=== PATIENT | female | born 1955 | race Caucasian/White ===

== ENCOUNTER 2021-09-06 11:12 | Outpatient (REF) | payer BC, SELFPAY ==
[2021-09-06 16:21] LABS: ALT 22 U/L (14-59); AST 29 U/L (15-37); Albumin 3.5 g/dL (3.4-5.0); Alkaline Phosphatase 88 U/L (46-116); Anion Gap 12.1 mmol/L (3-11); BUN 15 mg/dL (7-18); Bilirubin, Total 0.5 mg/dL (0.2-1.0); CO2 24.9 mmol/L (21.0-32.0); CREATININE 0.9 mg/dL (0.55-1.02); Calcium 8.6 mg/dL (8.5-10.1); Calculated LDL 103 mg/dL (<100); Chloride 102 mmol/L (98-107); Cholesterol 200 mg/dL (<200); Glucose 128 mg/dL (74-106); HDL Cholesterol 79 mg/dL (40-60); Potassium 4.7 mmol/L (3.5-5.1); Sodium 139 mmol/L (136-145); Total Protein 7.1 g/dL (6.4-8.2); Triglyceride 90 mg/dL (<150)
== END 2021-09-06 11:13 | disposition home or self-care (01) ==
LOC: NCHCN 11:12
PROVIDERS: Visit Provider Family Medicine
DX: I10 Essential (primary) hypertension (principal); E66.9 Obesity, unspecified; J45.20 Mild intermittent asthma, uncomplicated
CPT/HCPCS: 80053; 80061

== ENCOUNTER 2021-11-05 00:58 | Outpatient (CLI) | payer BC, SELFPAY ==
--- NOTE | 2021-11-05 10:05 | DI.RAD_ITS ---
Exam(s) XR CHEST 2V PA LATERAL EXAM: XR CHEST 2V PA LATERAL CLINICAL HISTORY: MILD PERSISTENT ALLERGIC ASTHMA, CONTROLLED, J45.30 TECHNIQUE: 2D digital imaging was performed of the chest. Two images were obtained. PA and lateral views were obtained. COMPARISON: No exams were available for comparison FINDINGS: MEDIASTINUM: Normal. HEART: Normal. PULMONARY VASCULATURE: Normal. LUNGS: Clear. PLEURAL SPACE: No pleural effusion or pneumothorax. BONE:Within normal limits for the patient's age. OTHER FINDINGS:Normal. IMPRESSION: No acute pulmonary findings. DATA REPOSITORY: RADIATION DOSE DELIVERED:
== END 2021-11-05 01:18 ==
LOC: DI 00:58
PROVIDERS: Visit Provider Family Medicine
DX: J45.30 Mild persistent asthma, uncomplicated (principal)
CPT/HCPCS: 71046

== ENCOUNTER 2021-11-12 04:42 | Outpatient (CLI) | payer BC, SELFPAY ==
[2021-11-12] MEDS: Inhaler, Assist Device 1 EACH MC (11:00)
[2021-11-12] MEDS: Albuterol HFA 18 GM 200 PUFF INH IH (11:00)
== END 2021-11-12 04:43 | disposition home or self-care (01) ==
LOC: RT 04:42
PROVIDERS: Visit Provider Family Medicine
DX: J45.30 Mild persistent asthma, uncomplicated (principal); R06.09 Other forms of dyspnea; R05.9 Cough, unspecified; K21.9 Gastro-esophageal reflux disease without esophagitis; E66.9 Obesity, unspecified; R94.2 Abnormal results of pulmonary function studies
CPT/HCPCS: 94060; 94726; 94729

== ENCOUNTER → 2021-11-23 01:21 | Outpatient (CLI) | payer BC, SELFPAY ==
--- NOTE | 2021-11-23 10:19 | DI.MAMMO_ITS ---
Exam(s) MAMMO SCREENING EXAM: MAMMO SCREENING CLINICAL HISTORY: SCREENING, Z12.39 TECHNIQUE: Bilateral full field digital CC and MLO mammographic images were obtained with 3D tomosyn thesis and utilizing computer aided detection (CAD). COMPARISON: Available for comparison. FINDINGS: Masses/Architectural Distortion: Scattered stable asymmetric densities are seen in both breasts. No suspicious masses or areas of architectural distortion are present. There is an ovoid opacity in the upper right breast on the MLO view. Microcalcifications: No suspicious pleomorphic-type are seen. Skin Thickening/Nipple Retraction: None. IMPRESSION: 1. Opacity in the upper right breast on the MLO view. 2. This area should be further evaluated with spot compression view. Ultrasound may be indicated at that time. BI-RADS Category 0 - Assessment Incomplete: Need additional imaging evaluation Breast Density - Category B - Scattered areas of fibroglandular density Breast density category C or D implies that the patient has dense breast tissue. Dense breast tissue is very common and is not abnormal but dense breast tissue can make it harder to find cancer on a ma mmogram. Also, dense breast tissue may increase their breast cancer risk. This information about the result of the mammogram report was provided to the patient to raise their awareness. Use this report when you speak with the patient about their risks for breast cancer, which includes their family hist ory. At that time, you may recommend for more screening tests (Ultrasound or MRI) as they might be us eful based on their risk. A negative radiographic report should not delay biopsy if a dominant or clinically suspicious mass is present. Up to ten percent of cancers are not identified on mammography. A negative report may reinforce clinical impression. Adenosis and dense breasts may obscure an underlying neoplasm. False positive reports average 6 to 10%. Patient will receive a letter notifying them of these results.
== END ==
PROVIDERS: Visit Provider Family Medicine
DX: Z12.31 Encounter for screening mammogram for malignant neoplasm of breast (principal)
CPT/HCPCS: 77063; 77067

== ENCOUNTER → 2021-12-17 00:21 | Outpatient (CLI) | payer BC, SELFPAY ==
--- NOTE | 2021-12-17 | DI.US_ITS ---
Exam(s) MG MAMMO SCREEN CALL BACK UNI US BREAST RT LIMITED EXAM: MG MAMMO SCREEN CALL BACK UNI and U/S breast RT limited CLINICAL HISTORY: F/U MAMMO, OPACITY UPPER RT BREAST MLO VIEW. TECHNIQUE: Craniocaudal and mediolateral oblique Full Field Digital Mammography views of the right b reast with Computer Aided Diagnosis followed by Tomosynthesis and right breast ultrasound. COMPARISON: Comparison is made with prior examinations. FINDINGS: Mammography/Tomosynthesis: Masses/Architectural Distortion: The area of concern in the upper right breast is less prominent on t he additional views. Microcalcifictions: No suspicious pleomorphic-type are seen. Skin Thickening/Nipple Retraction: None. Limited right breast US: Echotexture: Normal appearance of the glandular tissue. Shadowing: No suspicious foci. Cyst: None. Solid lesions: None seen. Ductal dilation: None. IMPRESSION: 1. No evidence of malignancy is noted. 2. A six-month follow-up right mammogram is recommended for re-evaluation. 3. The findings were discussed with the patient on the date of the examination. BI-RADS Category 3 - 6 month - Probably Benign Finding: Recommend follow-up imaging in 6 months Breast Density - Category B - Scattered areas of fibroglandular density Breast density Category C or D implies that the patient has dense breast tissue. Dense breast tissue can make it harder to find cancer on a mammogram. Dense breast tissue is also associated with an incr eased risk of breast cancer. This information about the result of the mammogram report was provided to the patient to raise their awareness. Use this report when you speak with the patient about their risks for breast cancer, which includes their family history. At that time, you may recommend additional screening tests (Ultrasoun d or MRI) as these tests may add significant information. A negative radiographic report should not delay biopsy if a dominant or clinically suspicious mass is present. Up to ten percent of cancers are not identified on mammography. A negative report may reinforce clinical impression. Adenosis and dense breasts may obscure an underlying neoplasm. False positive reports average 6 to 10%. Patient will receive a letter notifying them of these results.
== END ==
PROVIDERS: PCP Family Medicine; Visit Provider Family Medicine
DX: Z12.31 Encounter for screening mammogram for malignant neoplasm of breast (principal); R92.8 Other abnormal and inconclusive findings on diagnostic imaging of breast; N64.59 Other signs and symptoms in breast
CPT/HCPCS: 76642; 77063; 77067

== ENCOUNTER 2022-05-10 19:14 | Outpatient (REF) | payer BC, SELFPAY ==
[2022-05-10 14:48] LABS: HCT 22.2 % (36.0-46.0); MCHC 28.4 % (32.0-36.0); MCV 77 fL (80-95); Platelet Count 197 10^3/uL (130-400); RBC 2.87 10^6/uL (3.93-5.22); RDW 19.3 % (11.7-14.6); RDW-SD 53.2 fL; WBC 7.73 10^3/uL (4.4-10.8)
[2022-05-10 14:56] LABS: HGB 6.3 g/dL (11.2-15.7)
[2022-05-10 15:06] LABS: ALT 24 U/L (14-59); AST 37 U/L (15-37); Albumin 3.2 g/dL (3.4-5.0); Alkaline Phosphatase 101 U/L (46-116); Anion Gap 8.5 mmol/L (3-11); BUN 8 mg/dL (7-18); CO2 27.5 mmol/L (21.0-32.0); CREATININE 0.9 mg/dL (0.55-1.02); Calcium 8.7 mg/dL (8.5-10.1); Chloride 100 mmol/L (98-107); Estimated GFR 70.95 (mL/min/1.73m2); Glucose 117 mg/dL (74-106); Potassium 4.5 mmol/L (3.5-5.1); Sodium 136 mmol/L (136-145); TSH (W/Ref FT4) 1.24 uIU/mL (0.36-3.74); Total Protein 7.1 g/dL (6.4-8.2)
[2022-05-11 09:57] LABS: Iron 20 ug/dL (50-170); Total Iron Binding Capacity 385 ug/dL (250-450)
[2022-05-11 10:21] LABS: Ferritin 12 ng/mL (8-252)
== END 2022-05-10 19:15 | disposition home or self-care (01) ==
LOC: NCHCN 19:14
PROVIDERS: Nurse Practitioner Family; PCP Family Medicine; Visit Provider Family Medicine
DX: I10 Essential (primary) hypertension (principal); E66.9 Obesity, unspecified; R00.0 Tachycardia, unspecified
CPT/HCPCS: 80053; 85027; 82728; 83540; 83550; 84443

== ENCOUNTER 2022-05-11 10:07 | Inpatient (IN) | payer BC, SELFPAY ==
[2022-05-11] VITALS (42 sets, daily range): BP systolic 102–159; BP diastolic 48–94; PULSE 90–169; RESP 14–30; TEMP 36.6–37.4; O2SAT 94–100
--- NOTE | 2022-05-11 | DI.RAD_ITS ---
Exam(s) XR PORTABLE CHEST AP EXAM: XR PORTABLE CHEST AP CLINICAL HISTORY: ?CHF TECHNIQUE: 2D digital imaging was performed of the chest. One image was obtained. An AP view was ob tained. COMPARISON: CR XR CHEST 2V PA LATERAL from 11/05/2021 FINDINGS: MEDIASTINUM: Normal. HEART: Normal. PULMONARY VASCULATURE: Normal. LUNGS: Clear. PLEURAL SPACE: No pleural effusion or pneumothorax. BONE:Within normal limits for the patient's age. OTHER FINDINGS:Normal. IMPRESSION: No acute pulmonary findings. DATA REPOSITORY: RADIATION DOSE DELIVERED:
--- NOTE | 2022-05-11 | DI.US_ITS ---
Exam(s) US EXTREMITY VENOUS BI EXAM: US EXTREMITY VENOUS BI CLINICAL HISTORY: BLE edema. TECHNIQUE: Bilateral lower extremity venous ultrasound performed using grayscale, color-flow, and sp ectral Doppler analysis. COMPARISON: No exams were available for comparison FINDINGS: The right common femoral, femoral and popliteal veins demonstrate normal compressibility, augmentatio n, and color Doppler. The posterior tibial veins are patent. The saphenofemoral junctions are unremar kable. There is no evidence of a Santoyo's cyst. The soft tissues are unremarkable. The left common femoral, femoral and popliteal veins demonstrate normal compressibility, augmentation , and color Doppler. The posterior tibial veins are patent. The saphenofemoral junctions are unremark able. There is no evidence of a Santoyo's cyst. The soft tissues are unremarkable. IMPRESSION: 1. No evidence of a right lower extremity DVT. 2. No evidence of a left lower extremity DVT. DATA REPOSITORY:
[2022-05-11 11:12] LABS: Abs Immature Grans 0.08 10^3/uL (0.0-0.06); Absolute Basophil Count 0.04 10^3/uL (0.0-0.2); Absolute Eosinophil Count 0.05 10^3/uL (0.0-0.7); Absolute Lymphocyte Count 1.52 10^3/uL (1.2-3.4); Absolute Monocyte Count 0.57 10^3/uL (0.1-0.8); Absolute Neutrophil Count 5.68 10^3/uL (1.2-6.7); Basophils % 0.5; Eosinophils % 0.6; HCT 22.5 % (36.0-46.0); Lymphocytes % 19.1; MCH 21.8 pg (27.0-33.0); MCHC 28.4 % (32.0-36.0); MCV 77 fL (80-95); MPV 10.1 fL (8.0-11.0); Monocytes % 7.2; Neutrophils % 71.6; Platelet Count 198 10^3/uL (130-400); RBC 2.93 10^6/uL (3.93-5.22); RDW 19.3 % (11.7-14.6); RDW-SD 52.8 fL; WBC 7.94 10^3/uL (4.4-10.8)
[2022-05-11 11:14] LABS: HGB 6.4 g/dL (11.2-15.7)
[2022-05-11 11:23] LABS: INR 1.1 (0.9-1.1); Prothrombin Time 10.9 sec (9.3-11.0)
[2022-05-11 11:28] LABS: ALT 23 U/L (14-59); AST 39 U/L (15-37); Albumin 3.3 g/dL (3.4-5.0); Alkaline Phosphatase 110 U/L (46-116); BUN 8 mg/dL (7-18); Bilirubin, Total 0.9 mg/dL (0.2-1.0); CREATININE 0.9 mg/dL (0.55-1.02); Calcium 8.6 mg/dL (8.5-10.1); Chloride 98 mmol/L (98-107); Estimated GFR 70.95 (mL/min/1.73m2); Glucose 113 mg/dL (74-106); Potassium 4.4 mmol/L (3.5-5.1); Sodium 133 mmol/L (136-145); Total Protein 7.7 g/dL (6.4-8.2)
[2022-05-11 11:58] LABS: Iron 19 ug/dL (50-170); Total Iron Binding Capacity 402 ug/dL (250-450); Transferrin Sat 5 % (15-50)
--- NOTE | 2022-05-11 13:00 | RT.EKG_ITS ---
APPROVED REPORT Exam: Resting ECG Reason for Exam: tachycardia Patient Location: E HR:139 bpm ECG Measurements Heart Rate 139 AXIS TX [id number] P [id number] QRSd 86 QRS 76 QT 294 T 26 QTc 448 Conclusion Atrial fibrillation...? atrial activity afib
--- NOTE | 2022-05-11 13:02 | ED.GENADUL_ITS ---
Discharge Plan Disposition Patient Disposition: [facility] INPATIENT Condition: Serious Discharge Details Chief Complaint: GI Bleed Clinical Impression: GI (gastrointestinal bleed), Anemia, Atrial fibrillation Primary Care Provider: Dylon Rey ED Provider: Fracisco Bunch Home Meds and New Rx's Prescriptions: No Action olmesartan-hydrochlorothiazide [Benicar HCT] 1 EACH tablet 0.5 tab PO DAILY azelastine 205.5 MCG/0.137 ML spray,non-aerosol 1 spray Inhalation BID Dulera 8.8 GM HFA aerosol inhaler 2 puff Inhalation BID albuterol sulfate 90 mcg/actuation HFA aerosol inhaler 2 puff INHALATION Q4H PRN Medical Decision Making 66-year-old female sent by PCP for low hemoglobin, intermittent lightheadedness and generally not feeling well times months, lower extremity edema bilaterally over the past 1 to 2 weeks, chronic loose stool now dark color over the past 2 days, intermittent palpitations. Patient is tachycardic, normotensive, saturating well in no respiratory distress. Hemoccult positive dark stool with no gross blood. Plan to transfuse 2 units PRBCs for symptomatic anemia with low hemoglobin. I will start Protonix infusion. Patient developed increased heart rate here in the ED. Emergency Department an EKG was obtained and reviewed and interpreted by me: Please see report, tachycardic 139, narrow complex, irregular, concern for atrial fibrillation. Will continue transfusion and reassess HR. I spoke with Dr. Ward, discussed ED presentation course, he will admit the patient and request medicine consult. I called and spoke with Dr. Granados and discussed ED presentation course, she will see the patient in consultation. HPI General Mode of arrival: ambulatory . Date/Time Provider Initiated Documentation: 05/11/22 10:28 . Limitations to Documentation: no limitations . Information obtained by: patient . 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 Patient notes she has not been feeling well for months. She states that she intermittently feels lightheaded and has noticed her heart rate has been elevated. She also notes bilateral lower extremity edema over the past 1-2 weeks. She was seen by her PCP yesterday and labs were done and she was noted to have a hemoglobin of 6.3. She was sent to the ED for further work-up and treatment. Patient does note associated dark stool over the past few days. She states she chronically has loose stool. Patient also notes associated dyspnea on exertion times months. Hemoglobin is significantly low with no modifiers. Related Data Home Medications Medication Instructions Recorded Confirmed azelastine 205.5 mcg (0.15 %) 1 spray inhalation BID 03/22/15 05/11/22 nasal spray mometasone-formoterol HFA 200 2 puff inhalation BID 03/22/15 05/11/22 mcg-5 mcg/actuation aerosol inhaler (Dulera) olmesartan 40 0.5 tab PO DAILY 03/22/15 05/11/22 mg-hydrochlorothiazide 12.5 mg tablet (Benicar HCT) albuterol sulfate 90 mcg/actuation 2 puff inhalation Q4H PRN 05/11/22 05/11/22 aerosol inhaler Allergies Allergy/AdvReac Type Severity Reaction Status Date / Time No Known Allergies Allergy Unverified 05/11/22 10:35 General Stated Complaint: GenMedical CLIFFORD: 3 PFSH All Active Problems (Updated 05/11/22 @ 13:30 by Fracisco Bunch MD) GI (gastrointestinal bleed) (Chronic) Anemia (Chronic) Atrial fibrillation (Chronic) Social History Smoking/Tobacco Use Status: Never Smoking risk assessment performed?: Yes Alcohol Intake: current Alcohol Intake frequency: 0-2 drinks per day Alcohol type: wine Drug use: Never Substance use type: does not use Do you feel safe at home: Yes Do you feel safe in your relationship?: Yes Exam Const General: cooperative and no acute distress HENMT Mouth: moist mucous membranes Eyes Conjunctivae: normal conjunctivae Sclera: normal sclerae Neck Neck: trachea midline and supple Resp Auscultation: clear to auscultation bilaterally, no rales, no rhonchi and no wheezes Cardio Rate: tachycardic Rhythm: regular rhythm Heart Sounds: no murmurs GI Palpation: soft, not firm, no guarding, no masses, not rigid and nontender Skin General skin exam: no rashes or lesions noted Neuro General: patient alert, patient awake and tone normal Cognition: normal cognition Extrem General: edema Laterality: bilateral (2+ pitting up legs) Psych Appearance: grossly normal Mental Status: mental status grossly normal Course Vital Signs Vital signs: Vital Signs Temperature 36.6 C 05/11/22 10:28 Pulse 97 H 05/11/22 10:28 Respiratory Rate 18 05/11/22 10:28 Blood Pressure 142/48 H 05/11/22 10:28 Pulse Oximetry 99 05/11/22 10:28 Temperature 36.7 C 05/11/22 12:20 Temperature Source Temporal Artery Scan 05/11/22 10:28 Pulse 135 H 05/11/22 12:20 Respiratory Rate 20 05/11/22 12:20 Respiratory Effort Short of Breath 05/11/22 10:56 Respiratory Depth Normal 05/11/22 10:56 Respiratory Pattern Normal 05/11/22 10:56 Blood Pressure 110/54 L 05/11/22 12:20 Blood Pressure Position Sitting 05/11/22 10:28 Pulse Oximetry 99 05/11/22 12:20 Oxygen Delivery Method Room Air 05/11/22 12:20 Oxygen Flow Rate 0 05/11/22 12:20 Pain Level 0 05/11/22 10:28 Lab/Test Results Lab/Test Results: Laboratory Tests Range/Units 05/11/22 05/11/22 05/11/22 11:01 11:01 11:01 WBC (4.4-10.8) 10^3/uL 7.94 RBC (3.93-5.22) 10^6/uL 2.93 L Hgb (11.2-15.7) g/dL 6.4 L* Hct (36.0-46.0) % 22.5 L MCV (80-95) fL 77 L MCH (27.0-33.0) pg 21.8 L MCHC (32.0-36.0) % 28.4 L RDW (11.7-14.6) % 19.3 H Plt Count (130-400) 10^3/uL 198 MPV (8.0-11.0) fL 10.1 Immature Gran % 1.0 Neutrophils % 71.6 Lymphocytes % 19.1 Monocytes % 7.2 Eosinophils % 0.6 Basophils % 0.5 Nucleated RBC % (0.0-0.3) % 0.0 Absolute Neutrophils (1.2-6.7) 10^3/uL 5.68 Absolute Lymphocytes (1.2-3.4) 10^3/uL 1.52 Absolute Monocytes (0.1-0.8) 10^3/uL 0.57 Absolute Eosinophils (0.0-0.7) 10^3/uL 0.05 Absolute Basophils (0.0-0.2) 10^3/uL 0.04 PT (9.3-11.0) sec INR (0.9-1.1) Sodium (136-145) mmol/L 133 L Potassium (3.5-5.1) mmol/L 4.4 Chloride (98-107) mmol/L 98 Carbon Dioxide (21.0-32.0) mmol/L 26.0 Anion Gap (3-11) mmol/L 9.0 BUN (7-18) mg/dL 8 Creatinine (0.55-1.02) mg/dL 0.9 Est GFR (CKD-EPI 2020) (mL/min/1.73m2) 70.95 Glucose (74-106) mg/dL 113 H Calcium (8.5-10.1) mg/dL 8.6 Iron (50-170) ug/dL 19 L TIBC (250-450) ug/dL 402 Transferrin % Sat (15-50) % 5 L Total Bilirubin (0.2-1.0) mg/dL 0.9 AST (15-37) U/L 39 H ALT (14-59) U/L 23 Alkaline Phosphatase (46-116) U/L 110 Total Protein (6.4-8.2) g/dL 7.7 Albumin (3.4-5.0) g/dL 3.3 L Patient ABO/Rh Antibody Screen Crossmatch Range/Units 05/11/22 05/11/22 11:01 11:01 WBC (4.4-10.8) 10^3/uL RBC (3.93-5.22) 10^6/uL Hgb (11.2-15.7) g/dL Hct (36.0-46.0) % MCV (80-95) fL MCH (27.0-33.0) pg MCHC (32.0-36.0) % RDW (11.7-14.6) % Plt Count (130-400) 10^3/uL MPV (8.0-11.0) fL Immature Gran % Neutrophils % Lymphocytes % Monocytes % Eosinophils % Basophils % Nucleated RBC % (0.0-0.3) % Absolute Neutrophils (1.2-6.7) 10^3/uL Absolute Lymphocytes (1.2-3.4) 10^3/uL Absolute Monocytes (0.1-0.8) 10^3/uL Absolute Eosinophils (0.0-0.7) 10^3/uL Absolute Basophils (0.0-0.2) 10^3/uL PT (9.3-11.0) sec 10.9 INR (0.9-1.1) 1.1 Sodium (136-145) mmol/L Potassium (3.5-5.1) mmol/L Chloride (98-107) mmol/L Carbon Dioxide (21.0-32.0) mmol/L Anion Gap (3-11) mmol/L BUN (7-18) mg/dL Creatinine (0.55-1.02) mg/dL Est GFR (CKD-EPI 2020) (mL/min/1.73m2) Glucose (74-106) mg/dL Calcium (8.5-10.1) mg/dL Iron (50-170) ug/dL TIBC (250-450) ug/dL Transferrin % Sat (15-50) % Total Bilirubin (0.2-1.0) mg/dL AST (15-37) U/L ALT (14-59) U/L Alkaline Phosphatase (46-116) U/L Total Protein (6.4-8.2) g/dL Albumin (3.4-5.0) g/dL Patient ABO/Rh O Positive Antibody Screen NEGATIVE Crossmatch See Detail PAWSS Have you Been Recently Intoxicated or Drunk Within the Last 30 days?: No Have you Ever Experienced Previous Episodes of Alcohol Withdrawal?: No Have you ever Experienced Withdrawal Seizures?: No Have you ever Experienced Delirium Tremens(DT)s?: No Have you ever undergone Alcohol Rehabilitation Treatment (i.e, inpt ot outpatient treatment programs)?: No Have you ever Experienced Blackouts?: No Have you ever Combined Alcohol with other Downers within the last 90 days?: No Have you ever Combined Alcohol with any other Substance of Abuse during the last 90 days?: No Positive Blood Alcohol level on Presentation? [PCS.BAL]: No Evidence of Increased Autonomic Activity (i.e. HR>120, tremor, sweating, agitation, nausea)?: No Result: 0
[2022-05-11 13:42] LABS: NT-proBNP 359 pg/mL (<300)
--- NOTE | 2022-05-11 13:46 | MCONE_ITS ---
Date of service: 05/11/22 Time of Service: 13:56 Assessment and Plan Assessment and plan (1) Anemia due to blood loss, acute: Status: Acute Assessment and plan: Receiving 2 units pRBCS. Add anemia studies to bloodwork form ED. Treat GI bleed. Could have been fueling rapid rates in the ED. (2) GI (gastrointestinal bleed): Status: Acute Assessment and plan: Continue protonix gtt initiated in the ED. Defer to primary team for any plans for EGD. The patient does drink alcohol in the amounts that could lead to a chemical gastritis. (3) Atrial fibrillation: Status: Acute Assessment and plan: New diagnosis. 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 Would benefit from an echo. Not a candidate for anticoagulation given her GI bleed at this time. Since initiation of transfusion, her heart rate has calmed down significantly - at this point, I would not add additional therapy. (4) Lower extremity edema: Status: Acute Assessment and plan: In setting of Rapid Afib and possible underlying JAIME. I suspect rate-related CHF and pulmonary hypertension.The patient would benefit from a sleep study. Her albumin is not sufficiently low to explain her edema. Will give furosemide 20 mg IV x 1 and re-evaluate. (5) Asthma: Assessment and plan: The patient does appear to have a dry cough but no evidence of acute pulmonary disease on CXR. She sounds clear. I do not think she is in an asthma exacerbation at this time. Would continue her outpatient management. COVID-19 PCR negative. (6) GERD (gastroesophageal reflux disease): Assessment and plan: On IV PPI here. (7) Alcohol abuse: Assessment and plan: Will give thiamine now. Monitor for EtOH w/d on CIWA. Advised to reduce EtOH intake. (8) DVT prophylaxis: Status: Acute Assessment and plan: SCDs. Chemical DVT ppx is contraindicated in setting of acute GI bleeding. Thank you for this consult! Hospitalists will continue to follow with you. History of Present Illness History of Present Illness Chief Complaint: Weakness, dark stools; sent by PCP Narrative: Ms Palacios is a 66 year old female with PMHx of asthma, hypertension, GERD, alcohol abuse, obesity with BMI of 32.4, who was sent to [facility] ED today by her PCP for anemia. The patient has not been feeling well for several months (lightheaded, weak, having rare episodes of palpitations. Two weeks ago she noticed that the palpitations were more persistent and that her BLEs became more swollen. Several days ago she noticed dark stools. She reported this to her PCP who evaluated her yesterday and referred her to the ED today based on her bloodwork. In the ER, she was found to have dark stools and was heme positive. Her hemoglobin was 6.4 and hematocrit 22.5. She was found to be in rapid afib, which was a new diagnosis to her. She is being transfused two units pRBCs. The patient was admitted to the surgical service. Consultation by the hospitalist service was requested. The patient states that she drinks cranberry + white wine cocktails for about a total of 1 bottle of wine a day. Her last drink was yesterday evening. She denies h/o withdrawal or seizures. She states she had a normal colonoscopy 5 years ago. Concurrently, she had an EGD because she was having frequent nausea and vomiting. The patient states that her GI doctor told her that all he could see was scarring but that he put her on a PPI and that that generally helps her. Her last episode of vomiting was a few days ago and the emetic contents were white phlegm. She has not had any josie blood in stool but sometimes has blood on toilet paper when wiping,which she has been attributing to her known hemorrhoids. She states she generally has to eat small meals - otherwise, she gets nauseated and vomits. She feels that her intestines hurt as the food passes down and states that she does not digest food very well. She also reports a chronic cough, nonproductive, normal for her for this time of year. She was negative for COVID-19. Consults Consult date: 05/11/22 Requesting physician: Fracisco Bunch Review of Systems All systems reviewed & are unremarkable except as noted in HPI and below PFSH All Active Problems (Updated 05/11/22 @ 16:39 by Igna Granados MD) DVT prophylaxis (Acute) Lower extremity edema (Acute) Anemia due to blood loss, acute (Acute) GI (gastrointestinal bleed) (Acute) Anemia (Chronic) Atrial fibrillation (Acute) Medical History (Updated 05/11/22 @ 16:39 by Inga Granados MD) Alcohol abuse Asthma GERD (gastroesophageal reflux disease) Hypertension Nausea and vomiting Obesity (BMI 30-39.9) Seasonal allergies Surgical History (Updated 05/11/22 @ 16:29 by Inga Granados MD) Hx of colonoscopy Hx of esophagogastroduodenoscopy S/P appendectomy Family History (Updated 05/11/22 @ 16:30 by Inga Granados MD) Mother Diabetes Breast cancer Other Adopted Social History (Updated 05/11/22 @ 16:30 by Inga Granados MD) Smoking/Tobacco Use Status: Never Smoking risk assessment performed?: Yes Alcohol Intake: current Alcohol Intake frequency: 3 or more drinks per day Alcohol type: wine Counseling given: Yes Counseling provided: provider counseling and reduce to 2 or less/day Drug use: Never Substance use type: does not use Do you feel safe at home: Yes Do you feel safe in your relationship?: Yes Exam Narrative Exam Narrative: General: Anxious obese female who is not dyspneic/tachypneic/cyanotic, A&Ox3, on RA Neurological: A&Ox3, no focal deficits Psychiatric: Anxious, appropriate speech pattern/content Skin: Pale, intact HEENT: Atraumatic, normocephalic, EOMI, MMM, clear oropharynx, no submandibular or cervical lymphadenopathy, no goiter or JVD Cardiovascular: irregularly irregular rhythm, no m/r/g Lungs: Crackles at B bases Gastrointestinal: soft, nontender, nondistended Genitourinary: deferred Extremities: 2+ pitting edema BLEs, no c/c. Results Last Vital Signs Temp 36.7 C 05/11/22 12:20 Pulse 123 H 05/11/22 13:05 Resp 21 05/11/22 13:05 BP 140/66 05/11/22 13:05 Pulse Ox 100 05/11/22 13:05 Labs Result diagrams: 05/11/22 11:01 05/11/22 11:01 Labs: Laboratory Results - last 24 hr 05/11/22 05/11/22 05/11/22 11:01 11:01 11:01 WBC 7.94 RBC 2.93 L Hgb 6.4 L* Hct 22.5 L MCV 77 L MCH 21.8 L MCHC 28.4 L RDW 19.3 H Plt Count 198 MPV 10.1 Immature Gran % 1.0 Neutrophils % 71.6 Lymphocytes % 19.1 Monocytes % 7.2 Eosinophils % 0.6 Basophils % 0.5 Nucleated RBC % 0.0 Absolute Neutrophils 5.68 Absolute Lymphocytes 1.52 Absolute Monocytes 0.57 Absolute Eosinophils 0.05 Absolute Basophils 0.04 PT INR Sodium 133 L Potassium 4.4 Chloride 98 Carbon Dioxide 26.0 Anion Gap 9.0 BUN 8 Creatinine 0.9 Est GFR (CKD-EPI 2020) 70.95 Glucose 113 H Calcium 8.6 Iron 19 L TIBC 402 Transferrin % Sat 5 L Total Bilirubin 0.9 AST 39 H ALT 23 Alkaline Phosphatase 110 NT-Pro-B Natriuret Pep Total Protein 7.7 Albumin 3.3 L Patient ABO/Rh Antibody Screen Crossmatch 05/11/22 05/11/22 05/11/22 11:01 11:01 11:01 WBC RBC Hgb Hct MCV MCH MCHC RDW Plt Count MPV Immature Gran % Neutrophils % Lymphocytes % Monocytes % Eosinophils % Basophils % Nucleated RBC % Absolute Neutrophils Absolute Lymphocytes Absolute Monocytes Absolute Eosinophils Absolute Basophils PT 10.9 INR 1.1 Sodium Potassium Chloride Carbon Dioxide Anion Gap BUN Creatinine Est GFR (CKD-EPI 2020) Glucose Calcium Iron TIBC Transferrin % Sat Total Bilirubin AST ALT Alkaline Phosphatase NT-Pro-B Natriuret Pep 359 H Total Protein Albumin Patient ABO/Rh O Positive Antibody Screen NEGATIVE Crossmatch See Detail Imaging Additional studies: EKG: HR 139, Afib, no acute ischemia Venous dopplers BLEs: 1. No evidence of a right lower extremity DVT. 2. No evidence of a left lower extremity DVT. CXR; No acute pulmonary findings.
[2022-05-11 13:47] LABS: Source Nasal/Nares
[2022-05-11] MEDS: PANTOPRAZOLE 80 MG in Normal Saline 100 ML 10 MG IV ×2 (14:16→23:32)
[2022-05-11 14:41] LABS: COVID-19 PCR Negative (Negative)
[2022-05-11 14:43] LABS: Lab Add On Test DONE
[2022-05-11 15:11] LABS: Troponin I < 50 ng/L (<or=60)
[2022-05-11] MEDS: Normal Saline Flush 10 ML SYR IVP (16:47)
[2022-05-11] MEDS: Furosemide 20 MG/2 ML VIAL IVP (16:47)
[2022-05-11 16:49] LABS: Lab Add On Test DONE
[2022-05-11 17:15] LABS: Iron 20 ug/dL (50-170); Total Iron Binding Capacity 414 ug/dL (250-450); Transferrin Sat 5 % (15-50)
[2022-05-11] MEDS: THIAMINE 100 MG in Normal Saline 100 ML 200 MG IVPB (17:18)
[2022-05-11] MEDS: Normal Saline 500 ML 30 ML IV (17:19)
--- NOTE | 2022-05-11 17:22 | W.PM.HP.N ---
Date of service: 05/11/22 Time of Service: 17:22 Assessment and Plan Assessment and plan (1) Anemia due to blood loss, acute: Status: Acute Assessment and plan: Transfuse packed red blood cells Check hemoglobin If any signs of ongoing GI blood loss, or failure to respond to the transfusion, then we will plan for urgent endoscopy tomorrow afternoon. If she has a favorable response, we can try to arrange this as an outpatient (2) Lower extremity edema: Status: Acute Assessment and plan: Suspect this may be secondary to some mild congestive heart failure. We will check an echo (3) Atrial fibrillation: Status: Acute Assessment and plan: Reassess after transfusion of packed red blood cells. History of Present Illness History of Present Illness Chief Complaint: Bilateral lower extremity swelling Narrative: Elizabeth Serrano is a 66-year-old woman who presents to her primary care physician as an outpatient with a chief complaint of fatigue, lightheadedness, and new bilateral lower extremity edema. She says the leg swelling has occurred over the past 1 to 2 weeks. It used to occur primarily in the afternoons when she was up and about, but more recently has been near immediate onset upon arising from bed. She went to her primary care doctor to investigate this. Labs were sent off, and she was found to have a hemoglobin of 6.3. Therefore, she was referred to the emergency department. Repeat hemoglobin that confirmed a microcytic anemia. IV proton pump inhibition therapy was started, and she was transfused 2 units packed red blood cells. Review of Systems Constitutional Constitutional: Denies anorexia, Reports fatigue, Reports lethargy, Denies night sweats, Reports poor appetite, Reports weakness and Denies weight loss Eyes Eyes: Reports system reviewed and no additional complaints, except as documented ENT Ears, Nose, Mouth, and Throat: Reports system reviewed and no additional complaints, except as documented and Reports dizziness Cardiovascular Cardiovascular: Denies chest pain, Reports rapid heart rate, Reports leg edema and Reports dyspnea on exertion Respiratory Respiratory: Denies chest congestion, Reports cough, Reports excessive phlegm production and Reports dyspnea on exertion Gastrointestinal Gastrointestinal: Denies abdominal pain, Denies belching, Reports melena, Reports bloating, Reports change in bowel habits, Reports change in stool character, Denies coffee ground emesis, Reports early satiety, Reports nausea and Denies vomiting Musculoskeletal Musculoskeletal: Reports muscle weakness Neurologic Neurologic: Reports dizziness and Reports weakness Psychiatric Psychiatric: Reports anxiety Endocrine Endocrine: Reports fatigue Hematologic/Lymphatic Hematologic/Lymphatic: Denies easy bleeding and Denies easy bruising PFSH All Active Problems DVT prophylaxis (Acute) Lower extremity edema (Acute) Anemia due to blood loss, acute (Acute) GI (gastrointestinal bleed) (Acute) Anemia (Chronic) Atrial fibrillation (Acute) Medical History Alcohol abuse Asthma GERD (gastroesophageal reflux disease) Hypertension Nausea and vomiting Obesity (BMI 30-39.9) Seasonal allergies Surgical History Hx of colonoscopy Hx of esophagogastroduodenoscopy S/P appendectomy Family History Mother Diabetes Breast cancer Other Adopted Social History Smoking/Tobacco Use Status: Never Smoking risk assessment performed?: Yes Alcohol Intake: current Alcohol Intake frequency: 3 or more drinks per day Alcohol type: wine Counseling given: Yes Counseling provided: provider counseling and reduce to 2 or less/day Drug use: Never Substance use type: does not use Do you feel safe at home: Yes Do you feel safe in your relationship?: Yes Meds Allergies and Home Medications Allergies Allergy/AdvReac Type Severity Reaction Status Date / Time No Known Allergies Allergy Unverified 05/11/22 10:35 Home Medications Medication Instructions Recorded Confirmed Type azelastine 205.5 mcg (0.15 %) 1 spray inhalation BID 03/22/15 05/11/22 History nasal spray mometasone-formoterol HFA 200 2 puff inhalation BID 03/22/15 05/11/22 History mcg-5 mcg/actuation aerosol inhaler (Dulera) olmesartan 40 0.5 tab PO DAILY 03/22/15 05/11/22 History mg-hydrochlorothiazide 12.5 mg tablet (Benicar HCT) albuterol sulfate 90 mcg/actuation 2 puff inhalation Q4H PRN 05/11/22 05/11/22 History aerosol inhaler omeprazole 20 mg capsule,delayed 20 mg PO DAILY 05/11/22 05/11/22 History release Exam Const General: cooperative, healthy appearing and comfortable Nutritional Appearance: overweight Orientation: awake and oriented x3 HENMT Mouth: moist mucous membranes Eyes General: appearance normal, both eyes and all related structures Conjunctivae: conjunctivae normal Sclera: sclerae normal Neck Neck: full ROM, trachea midline and supple Resp Effort & Inspection: normal respiratory effort and able to speak in complete sentences Auscultation: clear to auscultation bilaterally, no crackles, no rhonchi and no wheezes Cardio Jugular venous pressure: no JVD Rate: regular rate Heart Sounds: S1 normal and S2 normal GI Inspection: non-distended Palpation: soft, no guarding, no hernias and nontender Auscultation: normal bowel sounds Skin General skin exam: normal turgor Neuro General: patient alert, patient awake and patient oriented x3 Cognition: normal cognition Extrem Right lower extremity: normal capillary refill and edema Left lower extremity: normal capillary refill and edema Psych Appearance: grossly normal Mental Status: mental status grossly normal Mood: anxious mood Affect: normal affect Attitude: cooperative Results Labs Result diagrams: 05/11/22 11:01 05/11/22 11:01 Labs: Laboratory Results - last 24 hr 05/11/22 05/11/22 05/11/22 11:01 11:01 11:01 WBC 7.94 RBC 2.93 L Hgb 6.4 L* Hct 22.5 L MCV 77 L MCH 21.8 L MCHC 28.4 L RDW 19.3 H Plt Count 198 MPV 10.1 Immature Gran % 1.0 Neutrophils % 71.6 Lymphocytes % 19.1 Monocytes % 7.2 Eosinophils % 0.6 Basophils % 0.5 Nucleated RBC % 0.0 Absolute Neutrophils 5.68 Absolute Lymphocytes 1.52 Absolute Monocytes 0.57 Absolute Eosinophils 0.05 Absolute Basophils 0.04 PT INR Sodium 133 L Potassium 4.4 Chloride 98 Carbon Dioxide 26.0 Anion Gap 9.0 BUN 8 Creatinine 0.9 Est GFR (CKD-EPI 2020) 70.95 Glucose 113 H Calcium 8.6 Iron 19 L TIBC 402 Transferrin % Sat 5 L Total Bilirubin 0.9 AST 39 H ALT 23 Alkaline Phosphatase 110 Troponin I NT-Pro-B Natriuret Pep Total Protein 7.7 Albumin 3.3 L COVID-19 Source SARS-CoV-2 (PCR) Add-On Test Request Patient ABO/Rh Antibody Screen Crossmatch 0905/11/22 05/11/22 11:01 11:01 11:01 WBC RBC Hgb Hct MCV MCH MCHC RDW Plt Count MPV Immature Gran % Neutrophils % Lymphocytes % Monocytes % Eosinophils % Basophils % Nucleated RBC % Absolute Neutrophils Absolute Lymphocytes Absolute Monocytes Absolute Eosinophils Absolute Basophils PT 10.9 INR 1.1 Sodium Potassium Chloride Carbon Dioxide Anion Gap BUN Creatinine Est GFR (CKD-EPI 2020) Glucose Calcium Iron TIBC Transferrin % Sat Total Bilirubin AST ALT Alkaline Phosphatase Troponin I NT-Pro-B Natriuret Pep 359 H Total Protein Albumin COVID-19 Source SARS-CoV-2 (PCR) Add-On Test Request Patient ABO/Rh O Positive Antibody Screen NEGATIVE Crossmatch See Detail 05/11/22 05/11/22 05/11/22 11:01 11:01 11:01 WBC RBC Hgb Hct MCV MCH MCHC RDW Plt Count MPV Immature Gran % Neutrophils % Lymphocytes % Monocytes % Eosinophils % Basophils % Nucleated RBC % Absolute Neutrophils Absolute Lymphocytes Absolute Monocytes Absolute Eosinophils Absolute Basophils PT INR Sodium Potassium Chloride Carbon Dioxide Anion Gap BUN Creatinine Est GFR (CKD-EPI 2020) Glucose Calcium Iron TIBC Transferrin % Sat Total Bilirubin AST ALT Alkaline Phosphatase Troponin I < 50 NT-Pro-B Natriuret Pep Total Protein Albumin COVID-19 Source SARS-CoV-2 (PCR) Add-On Test Request DONE DONE Patient ABO/Rh Antibody Screen Crossmatch 05/11/22 05/11/22 11:01 13:43 WBC RBC Hgb Hct MCV MCH MCHC RDW Plt Count MPV Immature Gran % Neutrophils % Lymphocytes % Monocytes % Eosinophils % Basophils % Nucleated RBC % Absolute Neutrophils Absolute Lymphocytes Absolute Monocytes Absolute Eosinophils Absolute Basophils PT INR Sodium Potassium Chloride Carbon Dioxide Anion Gap BUN Creatinine Est GFR (CKD-EPI 2020) Glucose Calcium Iron 20 L TIBC 414 Transferrin % Sat 5 L Total Bilirubin AST ALT Alkaline Phosphatase Troponin I NT-Pro-B Natriuret Pep Total Protein Albumin COVID-19 Source Nasal/Nares SARS-CoV-2 (PCR) Negative Add-On Test Request Patient ABO/Rh Antibody Screen Crossmatch Last Vital Signs Temp 98.8 F 05/11/22 16:36 Pulse 109 H 05/11/22 16:36 Resp 20 05/11/22 16:36 BP 159/73 H 05/11/22 16:36 Pulse Ox 98 05/11/22 16:36 PAWSS Have you Been Recently Intoxicated or Drunk Within the Last 30 days?: No Have you Ever Experienced Previous Episodes of Alcohol Withdrawal?: No Have you ever Experienced Withdrawal Seizures?: No Have you ever Experienced Delirium Tremens(DT)s?: No Have you ever undergone Alcohol Rehabilitation Treatment (i.e, inpt ot outpatient treatment programs)?: No Have you ever Experienced Blackouts?: No Have you ever Combined Alcohol with other Downers within the last 90 days?: No Have you ever Combined Alcohol with any other Substance of Abuse during the last 90 days?: No Positive Blood Alcohol level on Presentation? [PCS.BAL]: No Evidence of Increased Autonomic Activity (i.e. HR>120, tremor, sweating, agitation, nausea)?: No Result: 0
[2022-05-11 17:47] LABS: Ferritin 15 ng/mL (8-252); Folate 5.5 ng/mL (8.6-20.0); Vitamin B12 534 pg/mL (193-986)
[2022-05-11 18:43] LABS: HCT 27.2 % (36.0-46.0); HGB 8.2 g/dL (11.2-15.7)
[2022-05-11] MEDS: Budesonide/Formoterol 80/4.5 6.9 GM 60 PUFF INH IH (19:51)
[2022-05-11] MEDS: Acetaminophen 325 MG TAB 650 MG PO (21:00)
[2022-05-12] VITALS (16 sets, daily range): BP systolic 118–138; BP diastolic 59–75; PULSE 81–93; RESP 16–20; TEMP 36.8–37.4; O2SAT 94–99; BMI 32.3
[2022-05-12] MEDS: LORazepam 1 MG TAB PO/SL (02:12)
[2022-05-12] MEDS: Normal Saline Flush 10 ML SYR IVP ×3 (06:16→10:51)
[2022-05-12 06:35] LABS: HCT 22.6 % (36.0-46.0); MCHC 30.5 % (32.0-36.0); MCV 79 fL (80-95); MPV 10.1 fL (8.0-11.0); Platelet Count 145 10^3/uL (130-400); RBC 2.88 10^6/uL (3.93-5.22); RDW-SD 54.1 fL; WBC 6.06 10^3/uL (4.4-10.8)
[2022-05-12 06:38] LABS: HGB 6.9 g/dL (11.2-15.7)
[2022-05-12 08:13] LABS: Lab Add On Test DONE
[2022-05-12] MEDS: Thiamine 100 MG TAB PO (08:42)
[2022-05-12] MEDS: Folic Acid 1 MG TAB PO (08:43)
[2022-05-12] MEDS: Multivitamin TAB 1 TAB PO (08:44)
[2022-05-12] MEDS: Cyanocobalamin 500 MCG TAB 1000 MCG PO (08:44)
[2022-05-12] MEDS: Budesonide/Formoterol 80/4.5 6.9 GM 60 PUFF INH IH (09:13)
--- NOTE | 2022-05-12 09:59 | PDOC.CMIN ---
- If Service Date Differs Date of service: 05/12/22 Time of Service: 09:59 Care Management Initial Assess REASON FOR HOSPITALIZATION:: GI Bleed, AFib, Anemia PAST MEDICAL HISTORY/PAST SURGICAL HISTORY:: Medical History . Alcohol abuse. Asthma. GERD (gastroesophageal reflux disease). Hypertension. Nausea and vomiting. Obesity (BMI 30-39.9). Seasonal allergies. Surgical History . Hx of colonoscopy. Hx of esophagogastroduodenoscopy. S/P appendectomy PREVIOUS FUNCTIONAL STATUS/SOCIAL/FAMILY SUPPORTS:: Resides in [place], [facility] at baseline, friend helps with home making support. ADVANCE DIRECTIVES:: None on file. Has patient been provided with info about the portal/API?: Yes Did the patient sign up for the portal?: No CODE STATUS:: Full Code INSURANCE COVERAGE / FINANCIAL ISSUES:: BC BS FEP CURRENT HOME/COMMUNITY SERVICES/EQUIPMENT:: Raised toilet seat, homemaker supports-provided by friend PRIMARY CARE PHYSICIAN:: Dylon Rey, [facility] POTENTIAL DISCHARGE NEEDS:: Follow up appointments, Surgical services and PCP. Possible scope; inpatient or set up as outpatient. PATIENT/FAMILY EDUCATION NEEDS:: Review discharge instructions, discuss Ask Me Three. ANTICIPATED BARRIERS TO DISCHARGE:: None identified. TRANSPORTATION:: Via private vehicle with friendEfraín. PLAN:: Margot remains inpatient at this time being treated for anemia and LE Edema as well as Afib. She recieved two units of packed red blood cells and was started on IV proton pump inhibition therapy, per . Hospitalist following as well.
--- NOTE | 2022-05-12 10:53 | W.ANESPRE ---
General Info Date of Service Date Performed: 05/12/22 Height: 5 ft 3 in Weight: 82.9 kg Body Mass Index (BMI): 32.3 Surgical Procedure: Operation Date: 05/12/22 12:35 Proposed Procedure Side Surgeon p Gastroscopy Kranthi Ward MD Meds Allergies and Home Medications Allergies Allergy/AdvReac Type Severity Reaction Status Date / Time No Known Allergies Allergy Unverified 05/11/22 10:35 Home Medication Medication Instructions Recorded azelastine 205.5 mcg (0.15 %) 1 spray inhalation BID 03/22/15 nasal spray mometasone-formoterol HFA 200 2 puff inhalation BID 03/22/15 mcg-5 mcg/actuation aerosol inhaler (Dulera) olmesartan 40 0.5 tab PO DAILY 03/22/15 mg-hydrochlorothiazide 12.5 mg tablet (Benicar HCT) albuterol sulfate 90 mcg/actuation 2 puff inhalation Q4H PRN 05/11/22 aerosol inhaler omeprazole 20 mg capsule,delayed 20 mg PO DAILY 05/11/22 release Current Visit Medications: Current Medications Generic Name Dose Route Start Last Admin Trade Name Freq PRN Reason Stop Dose Admin Acetaminophen 650 mg 05/11/22 20:05 05/11/22 21:00 Acetaminophen 325 Mg Tab PO 650 mg Q4H PRN PRN Administration Albuterol Sulfate 2 puff 05/11/22 16:36 Albuterol Hfa 8 Gm 60 Puff Inh IH Q4H PRN PRN Budesonide/Formoterol Fumarate 2 puff 05/11/22 20:00 05/12/22 09:13 Budesonide/Formoterol 80/4.5 6.9 Gm 60 Puff Inh IH 2 puffs BID KELSY Administration Cyanocobalamin 1,000 mcg 05/12/22 08:00 Cyanocobalamin 1000 Mcg/Ml Vial IM/SC TODAY KELSY Cyanocobalamin 1,000 mcg 05/12/22 08:30 05/12/22 08:44 Cyanocobalamin 500 Mcg Tab PO 1,000 mcg DAILY KELSY Administration Device 1 each 05/11/22 17:00 Inhaler, Assist Device DIRECTED KELSY Folic Acid 1 mg 05/12/22 08:30 05/12/22 08:43 Folic Acid 1 Mg Tab PO 05/18/22 08:31 1 mg QAM KELSY Administration Pantoprazole Sodium 80 mg/ 100 mls @ 10 mls/hr 05/11/22 13:30 05/12/22 08:58 Sodium Chloride IV 10 mls/hr INFUSION KELSY Infusion Sodium Chloride 500 mls @ 0 mls/hr 05/11/22 13:31 05/11/22 19:00 Saline 500ml Bag IV 0 mls/hr PRN PRN Infusion As Directed IV Miscellaneous Supplies 1 each 05/11/22 13:45 Iv Access IV DIRECTED KELSY Lorazepam 0 mg 05/11/22 16:10 05/12/22 02:12 Lorazepam 1 Mg Tab PO/SL 1 mg DIRECTED PRN Administration Multivitamins 1 tab 05/12/22 08:30 05/12/22 08:44 Multivitamin Tab PO 05/18/22 08:31 1 tab QAM KELSY Administration Ondansetron HCl 4 mg 05/11/22 16:37 Ondansetron 4 Mg/2 Ml Vial IVP Q6H PRN PRN Pt's Own Azelastine 1 each 05/11/22 20:00 05/12/22 08:46 0.15% Nasal [place] IH Not Given BID KELSY Sodium Chloride 0 ml 05/11/22 13:31 05/12/22 10:51 Normal Saline Flush 10 Ml Syr IVP 10 ml PRN PRN Administration Thiamine HCl 100 mg 05/12/22 08:30 05/12/22 08:42 Thiamine 100 Mg Tab PO 100 mg DAILY KELSY Administration PFSH Active Problems Active Problems: Problem Status Onset Code DVT prophylaxis Z29.9 Lower extremity edema R60.0 Anemia due to blood loss, acute D62 GI (gastrointestinal bleed) K92.2 Anemia D64.9 Atrial fibrillation I48.91 Medical History Medical History Alcohol abuse Asthma GERD (gastroesophageal reflux disease) Hypertension Nausea and vomiting Obesity (BMI 30-39.9) Seasonal allergies Surgical History Surgical History Hx of colonoscopy Hx of esophagogastroduodenoscopy S/P appendectomy Tobacco Smoking/Tobacco Use Status: Never Alcohol Alcohol Intake: current Alcohol intake frequency: 3 or more drinks per day Alcohol type: wine Counseling provided: provider counseling and reduce to 2 or less/day Substance Use Substance use: Never Substance use type: does not use Vital Signs and Lab Results Vital Signs Most Recent Vital Signs in EMR: Most Recent Vital Signs Temp Pulse Resp BP Pulse Ox 36.9 C 85 16 138/68 96 05/12/22 10:38 05/12/22 10:38 05/12/22 10:38 05/12/22 10:38 05/12/22 10:38 Lab Results Result Diagrams: 05/12/22 05:40 05/11/22 11:01 Blood Type / Crossmatch: Patient ABO/Rh O Positive 05/11/22 Antibody Screen NEGATIVE 05/11/22 Crossmatch See Detail 05/11/22 Complete Blood Count: White Blood Count 6.06 10^3/uL (4.4-10.8) 05/12/22 05:40 Red Blood Count 2.88 10^6/uL (3.93-5.22) L 05/12/22 05:40 Hemoglobin 6.9 g/dL (11.2-15.7) L* 05/12/22 05:40 Hematocrit 22.6 % (36.0-46.0) L 05/12/22 05:40 Platelet Count 145 10^3/uL (130-400) 05/12/22 05:40 Complete Metabolic Panel: Sodium Level 133 mmol/L (136-145) L 05/11/22 11:01 Potassium Level 4.4 mmol/L (3.5-5.1) 05/11/22 11:01 Chloride Level 98 mmol/L (98-107) 05/11/22 11:01 Carbon Dioxide Level 26.0 mmol/L (21.0-32.0) 05/11/22 11:01 Blood Urea Nitrogen 8 mg/dL (7-18) 05/11/22 11:01 Creatinine 0.9 mg/dL (0.55-1.02) 05/11/22 11:01 Calcium Level 8.6 mg/dL (8.5-10.1) 05/11/22 11:01 Albumin 3.3 g/dL (3.4-5.0) L 05/11/22 11:01 Glucose Level 113 mg/dL (74-106) H 05/11/22 11:01 Liver Function Panel: Alanine Aminotransferase (ALT/SGPT) 23 U/L (14-59) 05/11/22 11:01 Aspartate Amino Transf (AST/SGOT) 39 U/L (15-37) H 05/11/22 11:01 Coagulation Panel: INR International Normalized Ratio 1.1 (0.9-1.1) 05/11/22 11:01 Prothrombin Time 10.9 sec (9.3-11.0) 05/11/22 11:01 Cardiac Panel: Troponin I < 50 ng/L (<or=60) 05/11/22 ZQ-Uyl-M-Type Natriuretic Peptide 359 pg/mL (<300) H 05/11/22 Arterial Blood Gas: No Data to Display Venous Blood Gas: No Data to Display Pancreas Panel: No Data to Display Thyroid Panel: Thyroid Stimulating Hormone (TSH) 1.24 uIU/mL (0.36-3.74) 05/10/22 09:48 Infectious Disease: Coronavirus (COVID-19)(PCR) Negative (Negative) 05/11/22 13:43 Coronavirus 2019 Source Nasal/Nares 05/11/22 13:43 Blood Cultures: No Data to Display Toxicology Panel: No Data to Display Imaging and Studies Imaging and Studies Study information below may be from another EMR and interpreted by another provider. Please see original notes in EMR for more complete details. EKG Summary: 05/11/22:Conclusion Atrial fibrillation...? atrial activity afib I have reviewed and I agree with the emergency room physician's ECG interpretation. Anesthesia Assessment and Plan Anesthesia History Personal History: No History of Anesthesia Complications Family History: No Family History of Anesthesia Complications Exercise Tolerance Exercise Tolerance: Metabolic Equivalents>4 Pertinent Negatives Pertinent Negatives: No Symptoms of GERD Cardiac & Pulmonary Exam Cardiac Exam: Normal S1/S2 Heart Sounds Pulmonary Exam: Clear Bilateral Breath Sounds Implantable Cardiac Device Does patient have a Pacemaker or an ICD?: No Airway Exam Known Difficult Airway: No Mallampati Class: 2 Mouth Opening: Normal (> 3cm) Thyromental Distance: Less than 3 cm Neck Range of Motion: Full ROM Neck Circumference: Normal Teeth Condition: Normal Dentition ASA Classification ASA Score: ASA 3 Emergency Case?: No NPO Status NPO Status: NPO Clears >2 hours, Solids >8 hours Anesthesia Plan Resuscitation Status: Full Code Anesthesia Technique: General Anesthesia Airway Planned: Natural Airway Monitors Used: Standard Monitors
--- NOTE | 2022-05-12 11:15 | RT.EKG_ITS ---
APPROVED REPORT Exam: Resting ECG Reason for Exam: Conversion from Afib to NSR Patient Location: I HR:84 bpm ECG Measurements Heart Rate 84 AXIS CA 118 P 45 QRSd 101 QRS 24 QT 359 T 33 QTc 425 Conclusion Sinus rhythm...normal P axis, V-rate 50- 99 Atrial premature complex...SV complex w/ short R-R interval Borderline short CA interval...CA int <120mS
[2022-05-12] MEDS: PANTOPRAZOLE 80 MG in Normal Saline 100 ML 10 MG IV (11:23)
[2022-05-12] MEDS: Lactated Ringers 1,000 ML 80 ML IV (12:30)
--- NOTE | 2022-05-12 12:49 | ENDO_ITS ---
Date of service: 05/12/22 Time of Service: 12:49 Endoscopy Report DATE OF PROCEDURE: 05/12/22 PRE-OP DIAGNOSIS: Anemia POST-OP DIAGNOSIS: other (gastritis and esophagitis) PROCEDURE: EGD SURGEON: Kranthi Ward ANESTHESIA TYPE: General:No Airway ESTIMATED BLOOD LOSS: 0 PATHOLOGY: none sent COMPLICATIONS: None DISPOSITION: PACU INDICATIONS: Elizabeth Serrano is a 66-year-old woman who was referred from her primary care physician with a new diagnosis of microcytic anemia. She has a longstanding history of proton pump inhibitor use for symptoms of gastritis and gastroesophageal reflux. I transfused 2 units of packed red blood cells, and she had a favorable response, but her hemoglobin dropped again today. Therefore, we discussed the risks and benefits of diagnostic and potentially therapeutic EGD, and she provided informed consent. PROCEDURE START TIME: 12:36 PROCEDURE END TIME: 12:42 FINDINGS: Bartholomew's esophagus with gastritis and prepyloric ulceration PROCEDURE DESCRIPTION: After the initiation of monitored anesthetic care, and with the assistance of a bite block, I advanced a standard gastroscope through the mouth past the hypopharynx and into the esophagus.? Under the direct vision of the scope, I advanced down the esophagus into the stomach.? Once I entered the stomach, I performed a brief inspection, followed by retroflexion towards the gastric cardia. There was evidence of diffuse gastritis around the cardia and body. There was a minimal amount of mucosal bleeding, without any obvious target vessel or other pathology. This appeared normal.? After that, I gently advanced the scope around the incisura angularis and examined the pylorus.? 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 It appeared inflamed. Again, there was no single culprit ulceration to explain the blood loss. I advanced the scope through the pylorus into the duodenum.? The mucosa was pink and healthy appearing through the fourth portion of the duodenum. There were no abnormalities.? I was able to visualize bile draining into the duodenum through the ampulla Vater. ?Next, I began retracting the endoscope. I then gently desufflated some of the stomach, and withdrew the endoscope into the distal esophagus. The Z-line appeared slightly irregular 1 to 2 cm above the GE junction. It appeared consistent with Bartholomew's esophagus. I did not perform biopsies at this time, but I do think that will need to be accomplished over the course of the next year.. ?Finally, I withdrew the scope along the length of the esophagus taking great care to examine the entirety of the mucosa.? I did not appreciate any abnormalities.
[2022-05-12] MEDS: Albuterol HFA 8 GM 60 PUFF INH IH (13:06)
--- NOTE | 2022-05-12 15:22 | W.ANESPOSTOP ---
Postoperative Evaluation Date, Time and Location Date Performed: 05/12/22 Time Performed: 15:22 Patient Location: Med/Surg Vital Signs Most Recent Imported Vital Signs: Most Recent Vital Signs Temp Pulse Resp BP Pulse Ox 37.3 C 87 16 123/59 L 94 05/12/22 14:10 05/12/22 14:46 05/12/22 14:10 05/12/22 14:10 05/12/22 14:10 Pain Score Most Recent Pain Score: Most Recent Pain Score Pain Level [Lower Back] 0 05/12/22 10:01 Pain Level 0 05/12/22 14:10 Assessment Mental Status: Awake (Alert & Oriented to Patient Baseline) Airway and Respiratory Function: Patent airway with normal (patient baseline) respiratory exam Cardiovascular Function: Hemodynamically Stable Hydration Status: Adequately Hydrated Nausea & Vomiting: No Nausea or Vomiting Pain: Pt. Denies Any Pain Peripheral Nerve Block: Patient did not receive a nerve block
--- NOTE | 2022-05-12 15:54 | CHAPLAIN ---
Margot was resting in bed when I visited. She appreciated the visit. She said she doesn't have family in the area, but explained that she has support from friends in [place].
--- NOTE | 2022-05-12 16:04 | W.PM.PROGNOT ---
Date of Service Date of service: 05/12/22 Time of Service: 16:06 Assessment and Plan Assessment and plan (1) Anemia due to blood loss, acute: Status: Acute Assessment and plan: Received 3 units pRBCS total on this admission. Repeat H/H pending. On protonix gtt. EGD today w/o active bleeding, showed gastritis and esophagitis. (2) GI (gastrointestinal bleed): Status: Acute Assessment and plan: As above (3) Atrial fibrillation: Status: Resolved Assessment and plan: New diagnosis. Converted to NSR yesterday evening. Would benefit from discharge home with a cardiac event recorder. I will place this order. 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 Would benefit from an echo as outpatient (will place this order as well). Not a candidate for anticoagulation given her GI bleed at this time. (4) Lower extremity edema: Status: Acute Assessment and plan: In setting of Rapid Afib and possible underlying JAIME. I suspect rate-related CHF and pulmonary hypertension.The patient would benefit from a sleep study - will defer to PCP. Her albumin is not sufficiently low to explain her edema. Would not discharge home on diuretics (5) Asthma: Assessment and plan: The patient does appear to have a dry cough but no evidence of acute pulmonary disease on CXR. She sounds clear. I do not think she is in an asthma exacerbation at this time. Would continue her outpatient management. COVID-19 PCR negative. (6) GERD (gastroesophageal reflux disease): Assessment and plan: On IV PPI here. (7) Alcohol abuse: Assessment and plan: Continue thiamine. Monitor for EtOH w/d on CIWA. Advised to reduce EtOH intake. (8) DVT prophylaxis: Status: Acute Assessment and plan: SCDs. Chemical DVT ppx is contraindicated in setting of acute GI bleeding. If the patient is still here tomorrow, the hospitalists will see her. Discussed with Dr Ward. Subjective Subjective Interval history since last seen: Ms Palacios states that her throat is a little sore, but otherwise she has no pain, nausea, palpitations, chest pain, or shortness of breath. She is s/p EGD today, found to have gastritis and esophagitis. She is interested in going home. Exam Narrative Exam Narrative: General: obese female who is less anxious, A&Ox3, on RA HEENT: EOMI, MMM Cardiovascular: RRR, no m/r/g Lungs: CTAB Gastrointestinal: soft, nontender, nondistended Extremities: 1+ pitting edema BLEs, no c/c. Objective Last Vital Signs Temp 37 C 05/12/22 15:22 Pulse 86 05/12/22 15:22 Resp 16 05/12/22 15:22 BP 128/72 05/12/22 15:22 Pulse Ox 96 05/12/22 15:22 Laboratory Results - last 24 hr 05/11/22 05/11/22 05/11/22 11:01 11:01 11:01 WBC RBC Hgb Hct MCV MCH MCHC RDW Plt Count MPV Iron TIBC Transferrin % Sat Ferritin 15 Vitamin B12 534 Folate 5.5 L Add-On Test Request DONE Patient ABO/Rh O Positive Antibody Screen NEGATIVE Crossmatch See Detail 05/11/22 05/11/22 05/12/22 11:01 18:15 05:36 WBC RBC Hgb 8.2 L Hct 27.2 L MCV MCH MCHC RDW Plt Count MPV Iron 20 L TIBC 414 Transferrin % Sat 5 L Ferritin Vitamin B12 Folate Add-On Test Request DONE Patient ABO/Rh Antibody Screen Crossmatch 05/12/22 05:40 WBC 6.06 RBC 2.88 L Hgb 6.9 L* Hct 22.6 L MCV 79 L MCH 24.0 L MCHC 30.5 L D RDW 19.0 H Plt Count 145 MPV 10.1 Iron TIBC Transferrin % Sat Ferritin Vitamin B12 Folate Add-On Test Request Patient ABO/Rh Antibody Screen Crossmatch PAWSS Have you Been Recently Intoxicated or Drunk Within the Last 30 days?: No Have you Ever Experienced Previous Episodes of Alcohol Withdrawal?: No Have you ever Experienced Withdrawal Seizures?: No Have you ever Experienced Delirium Tremens(DT)s?: No Have you ever undergone Alcohol Rehabilitation Treatment (i.e, inpt ot outpatient treatment programs)?: No Have you ever Experienced Blackouts?: No Have you ever Combined Alcohol with other Downers within the last 90 days?: No Have you ever Combined Alcohol with any other Substance of Abuse during the last 90 days?: No Positive Blood Alcohol level on Presentation? [PCS.BAL]: No Evidence of Increased Autonomic Activity (i.e. HR>120, tremor, sweating, agitation, nausea)?: No Result: 0
--- NOTE | 2022-05-12 16:43 | DSE_ITS ---
Date of service: 05/12/22 Time of Service: 16:43 DS: Diagnosis Discharge Diagnosis (1) Anemia due to blood loss, acute: Status: Acute Asessment and Plan: Improved after blood transfusion (2) Lower extremity edema: Status: Acute Asessment and Plan: resolved with diuresis (3) Atrial fibrillation: Status: Resolved Asessment and Plan: resolved after blood transfusion Discharge Plan Disposition Patient Disposition: HOME Condition: Serious Discharge Details Reason For Visit: Gi bleed,Afib,Anemia Admit Date/Time: 05/11/22 13:31 Admit Provider: Kranthi Ward Attending Provider: Kranthi Ward Primary Care Provider: Dylon Rey Hospital Course Hospital Course: She was admitted with microcytic anemia and atrial fibrillation. IV PPI was initiated and she was resuscitated with PRBC. Her physiology improved and endoscopy showed diffuse gastritis. Hgb was improved the afternoon of 05/12 and she was discharged home in good conodition. Home Meds and New Rx's Prescriptions: New omeprazole 20 mg capsule,delayed release(DR/EC) 20 mg PO BID Qty: 60 1RF sucralfate 1 gram tablet 1 g PO BID Qty: 60 0RF Continued olmesartan-hydrochlorothiazide [Benicar HCT] 1 EACH tablet 0.5 tab PO DAILY azelastine 205.5 MCG/0.137 ML spray,non-aerosol 1 spray Inhalation BID Dulera 8.8 GM HFA aerosol inhaler 2 puff Inhalation BID albuterol sulfate 90 mcg/actuation HFA aerosol inhaler 2 puff INHALATION Q4H PRN Discontinued omeprazole 20 mg capsule,delayed release(DR/EC) 20 mg PO DAILY Discharge Instructions Instructions: Diet for Stomach Ulcers and Gastritis (ED), Bartholomew Esophagus (DC) Stand Alone Forms: Nursing Discharge Form Referrals: [facility] [Other] (Please call tomorrow (Monday) to make an appointment to have monitor placed) [facility] [Other] (Please call tomorrow (Monday) to make an appointment.) [facility] [OTHER] - (Please call tomorrow(Monday) to make an appointment [phone]) Dylon Rey MD [Primary Care Provider] - (Please call Tomorrow (Monday) to make a follow up appointment.) Activity:: Activity as Tolerated Activity:: Activity as Tolerated Equipment/Supplies:: No Equipment Needed Diet:: gastritis Discharge Orders Discharge Orders: Discharge Order (Routine); Ordered 05/12/22 Ordered By: Kranthi Rivera Ambulatory Orders: Cardiac Event Recorder (Routine) Timeframe: 1 Week Facility: [facility] - Location: Respiratory Therapy Ordered By: Inga Granados echocardiogram (Routine) Timeframe: 2 Weeks Facility: [facility] - Location: DIAGNOSTIC IMAGING Ordered By: Inga Granados DS: Summary Time Spent with Patient providing and/or coordinating discharge services: Greater than 30 minutes Status at Discharge Functional status at discharge: independent ambulation Overall status at discharge: patient is back to baseline Mental Status: mental status grossly normal Speech and Movement: speech and movement normal Mood: congruent mood Affect: normal affect Exam Const General: cooperative, healthy appearing and comfortable Orientation: awake and oriented x3 Eyes General: appearance normal, both eyes and all related structures Conjunctivae: conjunctivae normal Sclera: sclerae normal Resp Effort & Inspection: normal respiratory effort and able to speak in complete sentences Cardio Jugular venous pressure: no JVD Rate: regular rate GI Inspection: non-distended Palpation: soft, no guarding, no hernias and nontender Auscultation: normal bowel sounds Skin General skin exam: normal turgor Neuro General: patient alert, patient awake and patient oriented x3 Cognition: normal cognition Extrem Right lower extremity: no edema Left lower extremity: no edema Psych Mental Status: mental status grossly normal Speech and Movement: speech and movement normal Mood: congruent mood Affect: normal affect DS: Data Vitals/I&O Vitals and I&O: Vital Signs Temperature 98.6 F 05/12/22 15:22 Temperature Source Tympanic 05/12/22 15:22 Pulse 86 05/12/22 15:22 Pulse Rhythm Regular 05/12/22 13:02 Pulse 145 H 05/11/22 13:45 Respiratory Rate 16 05/12/22 15:22 Respiratory Effort Non-Labored 05/12/22 13:02 Respiratory Depth Normal 05/12/22 13:02 Respiratory Pattern Normal 05/12/22 13:02 Blood Pressure 128/72 05/12/22 15:22 Blood Pressure Mean 78 05/11/22 13:45 Blood Pressure Position Sitting 05/11/22 10:28 Pulse Oximetry 96 05/12/22 15:22 Oxygen Delivery Method Room Air 05/12/22 15:22 Oxygen Flow Rate 0 05/12/22 15:22 Pain Level 0 05/12/22 14:10 Intake & Output 05/11/22 05/12/22 05/12/22 23:59 11:59 23:59 Intake Total 783.167 / 783.167 600.000 / 800.000 200 / 800.000 Output Total 1800 / 1800 1050 / 1050 Balance -1016.833 / -1016.833 -450.000 / -250.000 200 / -250.000 Weight 181 lb 3.52 oz 182 lb 12.211 oz Intake: IV 244.167 / 244.167 100.000 / 300.000 200 / 300.000 Blood Product 539 / 539 500 / 500 Rbc Leuko Reduced Unit 262 / 262 [id number] Rbc Leuko Reduced Unit 277 / 277 [id number] Rbc Leuko Reduced Unit 500 / 500 [id number] Output: Urine 1800 / 1800 1050 / 1050 Other: Urine Color Yellow Light Nika Urine Appearance Clear Clear Clear Urine Odor Normal None Comment pT missed hat Emesis Description None Voiding Methods Toilet Toilet Data Completed and Pending Labs on day of discharge: Labs from last 24 hours 05/12/22 05/12/22 05/12/22 Unknown 05:40 05:36 WBC Pending 6.06 RBC Pending 2.88 L Hgb Pending 6.9 L* Hct Pending 22.6 L MCV Pending 79 L MCH Pending 24.0 L MCHC Pending 30.5 L D RDW Pending 19.0 H Plt Count Pending 145 MPV Pending 10.1 Iron TIBC Transferrin % Sat Ferritin Vitamin B12 Folate A.phagocytophil DNA PCR Pending B. divergens/MO-1 PCR Pending Babesia duncani (PCR) Pending Babesia microti DNA PCR Pending Borrelia (PCR) Pending Lyme Disease Antibody Pending E.chaffeensis DNA (PCR) Pending E.ewingii/canis DNA PCR Pending E. muris-like DNA (PCR) Pending Add-On Test Request Patient ABO/Rh Antibody Screen Crossmatch 05/12/22 05/11/22 05/11/22 05:36 18:15 11:01 WBC RBC Hgb 8.2 L Hct 27.2 L MCV MCH MCHC RDW Plt Count MPV Iron 20 L TIBC 414 Transferrin % Sat 5 L Ferritin Vitamin B12 Folate A.phagocytophil DNA PCR B. divergens/MO-1 PCR Babesia duncani (PCR) Babesia microti DNA PCR Borrelia (PCR) Lyme Disease Antibody E.chaffeensis DNA (PCR) E.ewingii/canis DNA PCR E. muris-like DNA (PCR) Add-On Test Request DONE Patient ABO/Rh Antibody Screen Crossmatch 05/11/22 05/11/22 05/11/22 11:01 11:01 11:01 WBC RBC Hgb Hct MCV MCH MCHC RDW Plt Count MPV Iron TIBC Transferrin % Sat Ferritin 15 Vitamin B12 534 Folate 5.5 L A.phagocytophil DNA PCR B. divergens/MO-1 PCR Babesia duncani (PCR) Babesia microti DNA PCR Borrelia (PCR) Lyme Disease Antibody E.chaffeensis DNA (PCR) E.ewingii/canis DNA PCR E. muris-like DNA (PCR) Add-On Test Request DONE Patient ABO/Rh O Positive Antibody Screen NEGATIVE Crossmatch See Detail PFSH All Active Problems (Updated 05/12/22 @ 16:59 by Inga Granados MD) DVT prophylaxis (Acute) Lower extremity edema (Acute) Anemia due to blood loss, acute (Acute) GI (gastrointestinal bleed) (Acute) Anemia (Chronic) Medical History Alcohol abuse Asthma GERD (gastroesophageal reflux disease) Hypertension Nausea and vomiting Obesity (BMI 30-39.9) Seasonal allergies Surgical History Hx of colonoscopy Hx of esophagogastroduodenoscopy S/P appendectomy Family History Mother Diabetes Breast cancer Other Adopted Social History Smoking/Tobacco Use Status: Never Smoking risk assessment performed?: Yes Alcohol Intake: current Alcohol Intake frequency: 3 or more drinks per day Alcohol type: wine Counseling given: Yes Counseling provided: provider counseling and reduce to 2 or less/day Drug use: Never Substance use type: does not use Do you feel safe at home: Yes Do you feel safe in your relationship?: Yes
[2022-05-12 17:02] LABS: HCT 29.2 % (36.0-46.0); MCH 24.8 pg (27.0-33.0); MCHC 31.2 % (32.0-36.0); MCV 80 fL (80-95); MPV 9.4 fL (8.0-11.0); Platelet Count 153 10^3/uL (130-400); RBC 3.67 10^6/uL (3.93-5.22); RDW 18.6 % (11.7-14.6); RDW-SD 53.5 fL; WBC 6.77 10^3/uL (4.4-10.8)
[2022-05-12 17:03] LABS: HGB 9.1 g/dL (11.2-15.7)
[2022-05-12] MEDS: Cyanocobalamin 1000 MCG/ML VIAL IM/SC (17:51)
[2022-05-13 11:00] LABS: Lyme Ab w Rflx to Lyme Confirm Negative (Negative)
[2022-05-16 16:27] LABS: Anaplasma phagocytophilum Negative (Negative); B. miyamotoi PCR Negative (Negative); Babesia divergens/MO-1 Negative (Negative); Babesia duncani Negative (Negative); Babesia microti Negative (Negative); Ehrlichia chaffeensis Negative (Negative); Ehrlichia ewingii/canis Negative (Negative); Ehrlichia muris eauclairensis Negative (Negative)
== END 2022-05-12 18:24 | disposition home or self-care (01) | DRG 378 ==
LOC: ER 14:18 → MS 14:23
PROVIDERS: Internal Medicine; Student in an Organized Health Care Education/Training Program; Admitting Provider Surgery; Emergency Provider Student in an Organized Health Care Education/Training Program; PCP Family Medicine; Visit Provider Surgery
PROC: 0DJ68ZZ Inspection of Stomach, Via Natural or Artificial Opening Endoscopic (ICD-10-PCS; CPT 43235; principal; 2022-05-12 12:30)
DX: K25.4 Chronic or unspecified gastric ulcer with hemorrhage (principal); D62 Acute posthemorrhagic anemia; I42.6 Alcoholic cardiomyopathy; I48.91 Unspecified atrial fibrillation; R60.0 Localized edema; F10.10 Alcohol abuse, uncomplicated; J45.909 Unspecified asthma, uncomplicated; I10 Essential (primary) hypertension; K21.9 Gastro-esophageal reflux disease without esophagitis; E66.9 Obesity, unspecified; Z68.32 Body mass index [BMI] 32.0-32.9, adult; R05.3 Chronic cough; K29.70 Gastritis, unspecified, without bleeding; K22.70 Barrett's esophagus without dysplasia; G47.33 Obstructive sleep apnea (adult) (pediatric); I27.20 Pulmonary hypertension, unspecified; I50.9 Heart failure, unspecified
CPT/HCPCS: 43235; 36415; 80053; 85027; 86850; 86900; 86901; 86920; 87635; 87798; 93005; 94640; 99285; 71045; 82607; 82728; 82746; 83540; 83550; 83880; 84484; 85014; 85018; 85025; 85610; 86618; 93010; 93970; 99223; 99233; 99284; J1941; J3420; P9016

== ENCOUNTER 2022-05-24 17:36 | Outpatient (REF) | payer BC, SELFPAY ==
[2022-05-24 14:21] LABS: HCT 30.8 % (36.0-46.0); HGB 9.2 g/dL (11.2-15.7); MCH 25.3 pg (27.0-33.0); MCHC 29.9 % (32.0-36.0); MCV 85 fL (80-95); Platelet Count 137 10^3/uL (130-400); RBC 3.63 10^6/uL (3.93-5.22); RDW-SD 63.6 fL; WBC 6.72 10^3/uL (4.4-10.8)
[2022-05-24 14:39] LABS: RDW 20.8 % (11.7-14.6)
== END 2022-05-24 17:37 | disposition home or self-care (01) ==
LOC: NCHCN 17:36
PROVIDERS: PCP Family Medicine; Visit Provider Family Medicine
DX: D64.9 Anemia, unspecified (principal); K92.2 Gastrointestinal hemorrhage, unspecified
CPT/HCPCS: 85027

== ENCOUNTER 2022-07-04 10:46 | Outpatient (CLI) | payer BC, SELFPAY ==
--- NOTE | 2022-07-04 14:41 | W.CARDEVENT ---
Date of service: 07/04/22 Time of Service: 14:41 Cardiac Event Recorder Referring Provider:: Dylon Rey Indications:: Atrial flutter Cardiac Event Note: This is a 30-day cardiac event monitor ordered for atrial flutter Predominant rhythm was sinus with an average heart rate of 90. There was no bradycardia. Maximum heart rate was 109 No significant ventricular dysrhythmias . There were multiple runs of supraventricular tachycardia, rate generally 175. The majority of these appeared asymptomatic. Some were associated with symptoms of flutter or skipped beat
== END 2022-07-04 10:47 | disposition home or self-care (01) ==
LOC: CARDOPNVT 10:46
PROVIDERS: PCP Family Medicine; Visit Provider Internal Medicine Cardiovascular Disease
DX: I48.92 Unspecified atrial flutter (principal); I47.1 Supraventricular tachycardia

== ENCOUNTER 2022-07-13 13:11 | Inpatient (IN) | payer BC, SELFPAY ==
[2022-07-13] VITALS (38 sets, daily range): BP systolic 104–163; BP diastolic 26–82; PULSE 60–98; RESP 13–24; TEMP 36.2–37.3; O2SAT 85–100
--- NOTE | 2022-07-13 13:15 | RT.EKG_ITS ---
APPROVED REPORT Exam: Resting ECG Reason for Exam: DIZZY Patient Location: E HR:97 bpm ECG Measurements Heart Rate 97 AXIS MS 138 P 85 QRSd 87 QRS 23 QT 324 T 32 QTc 413 Conclusion Sinus rhythm...normal P axis, V-rate 60- 99 Low voltage, precordial leads...precordial leads <1.0mV no STEMI, no WPW, no burgada, non-diagnostic EKG I have reviewed and interpreted ECG and agree with software generated interpretation.
[2022-07-13 13:46] LABS: Abs Immature Grans 0.04 10^3/uL (0.0-0.06); Absolute Basophil Count 0.05 10^3/uL (0.0-0.2); Absolute Eosinophil Count 0.02 10^3/uL (0.0-0.7); Absolute Lymphocyte Count 0.89 10^3/uL (1.2-3.4); Absolute Monocyte Count 0.78 10^3/uL (0.1-0.8); Absolute Neutrophil Count 6.47 10^3/uL (1.2-6.7); Basophils % 0.6; Eosinophils % 0.2; HCT 23.9 % (36.0-46.0); HGB 7.1 g/dL (11.2-15.7); Immature Grans % 0.5; Lymphocytes % 10.8; MCH 25.1 pg (27.0-33.0); MCHC 29.7 % (32.0-36.0); MCV 85 fL (80-95); MPV 9.7 fL (8.0-11.0); Monocytes % 9.5; Neutrophils % 78.4; Platelet Count 198 10^3/uL (130-400); RBC 2.83 10^6/uL (3.93-5.22); RDW 16.7 % (11.7-14.6); RDW-SD 49.8 fL; WBC 8.25 10^3/uL (4.4-10.8)
--- NOTE | 2022-07-13 13:46 | ED.GENADUL_ITS ---
Discharge Plan Disposition Patient Dis[facility] Condition: Stable Discharge Details Clinical Impression: GI (gastrointestinal bleed) Primary Care Provider: Dylon Rey ED Provider: Sanna Canseco Home Meds and New Rx's Prescriptions: No Action olmesartan-hydrochlorothiazide [Benicar HCT] 1 EACH tablet 0.5 tab PO DAILY Dulera 8.8 GM HFA aerosol inhaler 2 puff Inhalation BID albuterol sulfate 90 mcg/actuation HFA aerosol inhaler 2 puff INHALATION Q4H PRN omeprazole 20 mg capsule,delayed release(DR/EC) 20 mg PO BID Qty: 60 1RF sucralfate 1 gram tablet 1 g PO BID Qty: 60 0RF Medical Decision Making 66-year-old female presents to the ER with a chief complaint of shortness of breath, palpitations, nausea vomiting black tarry diarrhea, and dizziness. She reports that last week she had an episode of dark liquid diarrhea. She does have a history of GI bleed which she was admitted for in May of this year. She does drink daily alcohol. She reports decreased appetite. Denies any abdominal pain. Rectal guaic positive, occult blood is no obvious bloody diarrhea or gross blood. Work-up including ordered CBC CMP, PT, Lipase CBC shows hemoglobin hematocrit of 7.1 and 23.9 which is decreased from 9 and 30 at the time of her last draw which was in May. MCH 25.1 MCHC 29.7 RDW 16.7 CMP shows sodium 133, potassium 4.6, chloride 96 BUN 15 creatinine 1.1 glucose 107 bilirubin is 3.2 AST 134 ALT 46 alk phos is 159 albumin is 3.0. Protonix 80 mg IV ordered, normal saline at 125 an hour, type and screen. 1426: Will page surgery for admission request. 1440: Spoke with Dr. Velasquez she recommends hospitalist admits since they already did an EGD. Will page hospitalist. 1450: Spoke with Dr. Echavarria who is on for hospitalist regarding patient case and details. He agrees to see patient for admission and will place admit orders. Discussed plan with patient and friend who is in the room they verbalized understanding and are in agreement with the plan. Patient was hemodynamically stable alert and oriented at the time of this dictation. Medical Records Medical records reviewed: Yes I reviewed the patient's medical records. Lab Data Lab results reviewed: Yes I reviewed the patient's lab results. Labs: Laboratory Tests Range/Units 07/13/22 07/13/22 07/13/22 13:40 13:40 13:40 WBC (4.4-10.8) 10^3/uL RBC (3.93-5.22) 10^6/uL Hgb (11.2-15.7) g/dL Hct (36.0-46.0) % MCV (80-95) fL MCH (27.0-33.0) pg MCHC (32.0-36.0) % RDW (11.7-14.6) % Plt Count (130-400) 10^3/uL MPV (8.0-11.0) fL Immature Gran % Neutrophils % Lymphocytes % Monocytes % Eosinophils % Basophils % Nucleated RBC % (0.0-0.3) % Absolute Neutrophils (1.2-6.7) 10^3/uL Absolute Lymphocytes (1.2-3.4) 10^3/uL Absolute Monocytes (0.1-0.8) 10^3/uL Absolute Eosinophils (0.0-0.7) 10^3/uL Absolute Basophils (0.0-0.2) 10^3/uL RBC Morphology Stomatocytes PT (9.3-11.0) sec 12.1 H INR (0.9-1.1) 1.2 H Sodium (136-145) mmol/L 133 L Potassium (3.5-5.1) mmol/L 4.6 Chloride (98-107) mmol/L 96 L Carbon Dioxide (21.0-32.0) mmol/L 26.7 Anion Gap (3-11) mmol/L 10.3 BUN (7-18) mg/dL 15 Creatinine (0.55-1.02) mg/dL 1.1 H Est GFR (CKD-EPI 2020) (mL/min/1.73m2) 55.76 Glucose (74-106) mg/dL 107 H Calcium (8.5-10.1) mg/dL 8.9 Magnesium (1.8-2.4) mg/dL 1.7 L Total Bilirubin (0.2-1.0) mg/dL 3.2 H AST (15-37) U/L 134 H ALT (14-59) U/L 46 Alkaline Phosphatase (46-116) U/L 159 H Troponin I (<or=60) ng/L < 50 Total Protein (6.4-8.2) g/dL 7.0 Albumin (3.4-5.0) g/dL 3.0 L Lipase (73-393) U/L 122 Crossmatch Range/Units 07/13/22 07/13/22 13:40 14:05 WBC (4.4-10.8) 10^3/uL 8.25 RBC (3.93-5.22) 10^6/uL 2.83 L Hgb (11.2-15.7) g/dL 7.1 L Hct (36.0-46.0) % 23.9 L MCV (80-95) fL 85 MCH (27.0-33.0) pg 25.1 L MCHC (32.0-36.0) % 29.7 L RDW (11.7-14.6) % 16.7 H Plt Count (130-400) 10^3/uL 198 MPV (8.0-11.0) fL 9.7 Immature Gran % 0.5 Neutrophils % 78.4 Lymphocytes % 10.8 Monocytes % 9.5 Eosinophils % 0.2 Basophils % 0.6 Nucleated RBC % (0.0-0.3) % 0.0 Absolute Neutrophils (1.2-6.7) 10^3/uL 6.47 Absolute Lymphocytes (1.2-3.4) 10^3/uL 0.89 L Absolute Monocytes (0.1-0.8) 10^3/uL 0.78 Absolute Eosinophils (0.0-0.7) 10^3/uL 0.02 Absolute Basophils (0.0-0.2) 10^3/uL 0.05 RBC Morphology See Below Stomatocytes 2+ PT (9.3-11.0) sec INR (0.9-1.1) Sodium (136-145) mmol/L Potassium (3.5-5.1) mmol/L Chloride (98-107) mmol/L Carbon Dioxide (21.0-32.0) mmol/L Anion Gap (3-11) mmol/L BUN (7-18) mg/dL Creatinine (0.55-1.02) mg/dL Est GFR (CKD-EPI 2020) (mL/min/1.73m2) Glucose (74-106) mg/dL Calcium (8.5-10.1) mg/dL Magnesium (1.8-2.4) mg/dL Total Bilirubin (0.2-1.0) mg/dL AST (15-37) U/L ALT (14-59) U/L Alkaline Phosphatase (46-116) U/L Troponin I (<or=60) ng/L Total Protein (6.4-8.2) g/dL Albumin (3.4-5.0) g/dL Lipase (73-393) U/L Crossmatch See Detail HPI General Mode of arrival: ambulatory . Date/Time Provider Initiated Documentation: 07/13/22 13:27 . Limitations to Documentation: no limitations . Information obtained by: patient, RN notes reviewed and old records reviewed . HPI Narrative: 66-year-old female presents to the ER with a chief complaint of shortness of breath, palpitations, nausea vomiting black tarry diarrhea, and dizziness. She reports that last week she had an episode of dark liquid diarrhea. She does have a history of GI bleed which she was admitted for in May of this year. She does drink daily alcohol. She reports decreased appetite. Denies any abdo zaida pain. She also endorses bilateral lower extremity swelling which has been ongoing for greater than 1 month. Past medical history include alcohol abuse, asthma, GERD, hypertension, acute gastritis. Related Data Home Medications Medication Instructions Recorded Confirmed mometasone-formoterol HFA 200 2 puff inhalation BID 03/22/15 07/13/22 mcg-5 mcg/actuation aerosol inhaler (Dulera) olmesartan 40 0.5 tab PO DAILY 03/22/15 07/13/22 mg-hydrochlorothiazide 12.5 mg tablet (Benicar HCT) albuterol sulfate 90 mcg/actuation 2 puff inhalation Q4H PRN 05/11/22 07/13/22 aerosol inhaler omeprazole 20 mg capsule,delayed 20 mg PO BID #60 caps 05/12/22 07/13/22 release sucralfate 1 gram tablet 1 g PO BID #60 tabs 05/12/22 07/13/22 Previous Rx's Medication Instructions Recorded omeprazole 20 mg capsule,delayed 20 mg PO BID #60 caps 05/12/22 release sucralfate 1 gram tablet 1 g PO BID #60 tabs 05/12/22 Allergies Allergy/AdvReac Type Severity Reaction Status Date / Time No Known Allergies Allergy Unverified 07/13/22 13:48 General Stated Complaint: GI Bleed CLIFFORD: 2 Review of Systems All systems reviewed & are unremarkable except as noted in HPI and below Gastrointestinal Gastrointestinal: Reports melena, Denies coffee ground emesis, Reports cramping, Reports diarrhea and Reports nausea Genitourinary Genitourinary: Denies dysuria PFSH All Active Problems (Updated 07/13/22 @ 15:41 by Sanan Canseco NP) GI (gastrointestinal bleed) (Acute) Medical History Alcohol abuse Asthma GERD (gastroesophageal reflux disease) Hypertension Nausea and vomiting Obesity (BMI 30-39.9) Seasonal allergies Surgical History Hx of colonoscopy Hx of esophagogastroduodenoscopy S/P appendectomy Family History Mother Diabetes Breast cancer Other Adopted Social History Smoking/Tobacco Use Status: Never Smoking risk assessment performed?: Yes Alcohol Intake: current Alcohol Intake frequency: 0-2 drinks per day Alcohol type: wine Counseling given: Yes Counseling provided: provider counseling and reduce to 2 or less/day Drug use: Never Substance use type: does not use Do you feel safe at home: Yes Do you feel safe in your relationship?: Yes Exam Narrative Exam Narrative: Constitutional: Alert and oriented x3. Appears stated age. Normal body habitus. Head: Normocephalic, no trauma. Eyes: Pupils PERRL, Red reflex noted, EOM's intact. Eyelids symmetrical without lesions, discharge, or swelling. ENT: Bilateral TM's WNL, External ear normal to inspection, no mastoid TTP, swelling, or erythema, Nasal turbinates WNL, no nasal discharge. Normal dentition, Posterior pharynx WNL, no exudate. Chest: RRR, Normal S1, S2, distal pulses intact. Resp: Lungs clear to auscultation bilaterally, no wheezes, rales, or rhonchi. Does become dyspneic with movement. Abdomen: Soft, non-distended, Normoactive bowel sounds all 4 quads. Musculoskeletal: Normal gait, 5/5 strength to all four extremities. 2+ pitting edema bilateral lower extremities. Skin: No suspicious rashes or lesions. Capillary refill less than 2 sec. patient does appear pale. Neurologic: Cranial nerves II-XII intact. Alert and oriented x 3. Motor: No deficits noted. Sensory: Intact bilaterally all 4 extremities. Reflexes: DTR's intact bilaterally.. Hematologic/Lymphatic: No ecchymosis, no lymphadenopathy. Course Vital Signs Vital signs: Vital Signs Temperature 36.6 C 07/13/22 13:26 Pulse 98 H 07/13/22 13:26 Respiratory Rate 20 07/13/22 13:26 Blood Pressure 128/48 L 07/13/22 13:26 Pulse Oximetry 99 07/13/22 13:26 Temperature 36.6 C 07/13/22 13:26 Temperature Source Temporal Artery Scan 07/13/22 13:26 Pulse 98 H 07/13/22 13:26 Respiratory Rate 20 07/13/22 13:26 Blood Pressure 128/48 L 07/13/22 13:26 Blood Pressure Position Sitting 07/13/22 13:26 Pulse Oximetry 99 07/13/22 13:26 Oxygen Delivery Method Room Air 07/13/22 13:26 Oxygen Flow Rate 0 07/13/22 13:26 Pain Level 5 07/13/22 13:26 Procedures Stool Hemoccult Procedural Steps Taken: stool placed in appropriate test area, developer placed on stool and control areas and controls appropriately positive and negative Hemoccult result: positive
[2022-07-13 13:58] LABS: Diff Comment RBC Morph Reviewed; Stomatocytes 2+
[2022-07-13 14:01] LABS: INR 1.2 (0.9-1.1); Prothrombin Time 12.1 sec (9.3-11.0)
[2022-07-13 14:02] LABS: ALT 46 U/L (14-59); AST 134 U/L (15-37); Alkaline Phosphatase 159 U/L (46-116); Anion Gap 10.3 mmol/L (3-11); BUN 15 mg/dL (7-18); Bilirubin, Total 3.2 mg/dL (0.2-1.0); CO2 26.7 mmol/L (21.0-32.0); CREATININE 1.1 mg/dL (0.55-1.02); Calcium 8.9 mg/dL (8.5-10.1); Chloride 96 mmol/L (98-107); Estimated GFR 55.76 (mL/min/1.73m2); Glucose 107 mg/dL (74-106); Potassium 4.6 mmol/L (3.5-5.1); Sodium 133 mmol/L (136-145)
[2022-07-13 14:07] LABS: Lipase 122 U/L (73-393); Magnesium 1.7 mg/dL (1.8-2.4); Troponin I < 50 ng/L (<or=60)
[2022-07-13] MEDS: Pantoprazole 40 MG VIAL 80 MG IVP (14:21)
[2022-07-13] MEDS: Normal Saline 1,000 ML 125 ML IV (14:24)
[2022-07-13 14:31] LABS: ETHANOL BLOOD < 3.0 mg/dL (<10)
[2022-07-13 15:39] LABS: Source Nasal/Nares
[2022-07-13 16:10] LABS: COVID-19 PCR Negative (Negative)
--- NOTE | 2022-07-13 16:23 | W.PM.HP.N ---
Date of service: 07/13/22 Time of Service: 16:23 Assessment and Plan Assessment and plan (1) GI (gastrointestinal bleed): Status: Acute Assessment and plan: Similar history in May of this year. Transfusing 2 units p RBCs Protonix 40mg IV BID. Carafate BID Alcohol avoidance discussed. Previous EGD was concerning for Barrets esophagus; no bx d/t GI bleed. Will need outpt f/u for EGD and bx once stable. Monitor H/H. 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 She is willing to abstain from alcohol. She has never had a symptomatic withdrawal from alcohol. (3) Asthma: Assessment and plan: No acute exacerbation. Cont Dulera and prn albuterol (4) Hypertension: Assessment and plan: Holding olmesartan-HCTZ d/t low BP in background of blood loss. Pt had cut the dosage of this medication in half in the recent past, but then was told by her PCP to increase back to a full dose, which she has been taking. Monitor. History of Present Illness History of Present Illness Chief Complaint: Black tarry diarrhea, nausea, vomitting Narrative: This is a 66 yo female with a h/o upper GI bleed, asthma, HTN, alcohol abuse, obesity. She presented to the ED complaining of black loose stools, N/V, dizziness. Last stool was the day prior to presentation She was admitted to [facility] in May of this year for GI bleed. She underwent an EGD then and was noted to have gastritis/esophagitis. No single source/culprit to explain the blood loss. She was transfused and sent home on a PPI and carafate which she endorses still taking. Her hgb at presentation this admission was 7.1. Stool was guaic positive. K normal. Creatinine 1.1. Bilirubin elevated at 3.2. ALT 46. AST 134. Protonix 80mg IV administered. Two units of pRBCs ordered. Review of Systems All systems reviewed & are unremarkable except as noted in HPI and below PFSH All Active Problems GI (gastrointestinal bleed) (Acute) Medical History Alcohol abuse Asthma GERD (gastroesophageal reflux disease) Hypertension Nausea and vomiting Obesity (BMI 30-39.9) Seasonal allergies Surgical History Hx of colonoscopy Hx of esophagogastroduodenoscopy S/P appendectomy Family History Mother Diabetes Breast cancer Other Adopted Social History Smoking/Tobacco Use Status: Never Smoking risk assessment performed?: Yes Alcohol Intake: current Alcohol Intake frequency: 0-2 drinks per day Alcohol type: wine Counseling given: Yes Counseling provided: provider counseling and reduce to 2 or less/day Drug use: Never Substance use type: does not use Do you feel safe at home: Yes Do you feel safe in your relationship?: Yes Meds Allergies and Home Medications Allergies Allergy/AdvReac Type Severity Reaction Status Date / Time No Known Allergies Allergy Unverified 07/13/22 13:48 Home Medications Medication Instructions Recorded Confirmed Type mometasone-formoterol HFA 200 2 puff inhalation BID 03/22/15 07/13/22 History mcg-5 mcg/actuation aerosol inhaler (Dulera) olmesartan 40 0.5 tab PO DAILY 03/22/15 07/13/22 History mg-hydrochlorothiazide 12.5 mg tablet (Benicar HCT) albuterol sulfate 90 mcg/actuation 2 puff inhalation Q4H PRN 05/11/22 07/13/22 History aerosol inhaler omeprazole 20 mg capsule,delayed 20 mg PO BID #60 caps 05/12/22 07/13/22 Rx release sucralfate 1 gram tablet 1 g PO BID #60 tabs 05/12/22 07/13/22 Rx Exam Narrative Exam Narrative: Lying in bed. Pleasant. Const General: cooperative and no acute distress Nutritional Appearance: overweight Orientation: alert and oriented x3 Eyes General: appearance normal, both eyes and all related structures Sclera: sclerae normal Resp Effort & Inspection: normal respiratory effort Auscultation: clear to auscultation bilaterally Cardio Rate: regular rate Rhythm: regular rhythm Heart Sounds: S1 normal and S2 normal GI Palpation: soft and tender in the epigastrum (mild); with no rebound tenderness Skin General skin exam: no rashes or lesions noted and no jaundice Neuro General: patient alert, patient oriented x3 and no focal motor deficits Cognition: normal cognition Speech: speech normal Extrem General: no pedal edema and no calf tenderness Psych Appearance: grossly normal Mental Status: mental status grossly normal Results Labs Result diagrams: 07/13/22 13:40 07/13/22 13:40 Labs: Laboratory Results - last 24 hr 07/13/22 07/13/22 07/13/22 13:40 13:40 13:40 WBC RBC Hgb Hct MCV MCH MCHC RDW Plt Count MPV Immature Gran % Neutrophils % Lymphocytes % Monocytes % Eosinophils % Basophils % Nucleated RBC % Absolute Neutrophils Absolute Lymphocytes Absolute Monocytes Absolute Eosinophils Absolute Basophils RBC Morphology Stomatocytes PT 12.1 H INR 1.2 H Sodium 133 L Potassium 4.6 Chloride 96 L Carbon Dioxide 26.7 Anion Gap 10.3 BUN 15 Creatinine 1.1 H Est GFR (CKD-EPI 2020) 55.76 Glucose 107 H Calcium 8.9 Magnesium 1.7 L Total Bilirubin 3.2 H AST 134 H ALT 46 Alkaline Phosphatase 159 H Troponin I < 50 Total Protein 7.0 Albumin 3.0 L Lipase 122 Ethyl Alcohol COVID-19 Source SARS-CoV-2 (PCR) Patient ABO/Rh Antibody Screen Crossmatch 07/13/22 07/13/22 07/13/22 13:40 13:40 14:05 WBC 8.25 RBC 2.83 L Hgb 7.1 L Hct 23.9 L MCV 85 MCH 25.1 L MCHC 29.7 L RDW 16.7 H Plt Count 198 MPV 9.7 Immature Gran % 0.5 Neutrophils % 78.4 Lymphocytes % 10.8 Monocytes % 9.5 Eosinophils % 0.2 Basophils % 0.6 Nucleated RBC % 0.0 Absolute Neutrophils 6.47 Absolute Lymphocytes 0.89 L Absolute Monocytes 0.78 Absolute Eosinophils 0.02 Absolute Basophils 0.05 RBC Morphology See Below Stomatocytes 2+ PT INR Sodium Potassium Chloride Carbon Dioxide Anion Gap BUN Creatinine Est GFR (CKD-EPI 2020) Glucose Calcium Magnesium Total Bilirubin AST ALT Alkaline Phosphatase Troponin I Total Protein Albumin Lipase Ethyl Alcohol < 3.0 COVID-19 Source SARS-CoV-2 (PCR) Patient ABO/Rh O Positive Antibody Screen NEGATIVE Crossmatch See Detail 07/13/22 15:35 WBC RBC Hgb Hct MCV MCH MCHC RDW Plt Count MPV Immature Gran % Neutrophils % Lymphocytes % Monocytes % Eosinophils % Basophils % Nucleated RBC % Absolute Neutrophils Absolute Lymphocytes Absolute Monocytes Absolute Eosinophils Absolute Basophils RBC Morphology Stomatocytes PT INR Sodium Potassium Chloride Carbon Dioxide Anion Gap BUN Creatinine Est GFR (CKD-EPI 2020) Glucose Calcium Magnesium Total Bilirubin AST ALT Alkaline Phosphatase Troponin I Total Protein Albumin Lipase Ethyl Alcohol COVID-19 Source Nasal/Nares SARS-CoV-2 (PCR) Negative Patient ABO/Rh Antibody Screen Crossmatch Last Vital Signs Temp 37.1 C 07/13/22 15:55 Pulse 92 H 07/13/22 15:55 Resp 19 07/13/22 15:55 BP 129/68 07/13/22 15:55 Pulse Ox 100 07/13/22 15:55 PAWSS Have you Been Recently Intoxicated or Drunk Within the Last 30 days?: Yes Have you Ever Experienced Previous Episodes of Alcohol Withdrawal?: No Have you ever Experienced Withdrawal Seizures?: No Have you ever Experienced Delirium Tremens(DT)s?: No Have you ever undergone Alcohol Rehabilitation Treatment (i.e, inpt ot outpatient treatment programs)?: No Have you ever Experienced Blackouts?: No Have you ever Combined Alcohol with other Downers within the last 90 days?: No Have you ever Combined Alcohol with any other Substance of Abuse during the last 90 days?: No Positive Blood Alcohol level on Presentation? [PCS.BAL]: No Evidence of Increased Autonomic Activity (i.e. HR>120, tremor, sweating, agitation, nausea)?: No Result: 1
[2022-07-13] MEDS: Sucralfate 1 GM TAB PO (16:46)
[2022-07-13] MEDS: Normal Saline Flush 10 ML SYR IVP ×2 (17:50→20:14)
[2022-07-13] MEDS: Budesonide/Formoterol 80/4.5 6.9 GM 60 PUFF INH IH (19:51)
--- NOTE | 2022-07-14 | DI.US_ITS ---
Exam(s) US ABDOMEN EXAM: US ABDOMEN CLINICAL HISTORY: Elevated bilirubin, diarrhea TECHNIQUE: Ultrasound abdomen performed using standard protocol. COMPARISON: No exams were available for comparison FINDINGS: ABDOMINAL AORTA AND IVC: Visualized portions normal caliber. PANCREAS: Poorly visualized due to patient body habitus. LIVER: There is diffuse fatty infiltration of the liver. The liver measures 16 cm long. Hepatopedal flow in the Portal Vein. GALLBLADDER:No evidence of cholelithiasis. No evidence of wall thickening. No pericholecystic fluid i dentified. BILIARY SYSTEM: Common bile duct measures < 7 mm. No intrahepatic biliary ductal dilation. MCKEON'S SIGN: Negative. KIDNEYS: Kidneys are symmetric in size. No evidence of renal calculi. No evidence of hydronephrosis. No renal mass or cyst identified. SPLEEN: The spleen is enlarged measuring 16.3 cm. ASCITES: None seen. IMPRESSION: 1. Examination limited by patient body habitus. 2. Hepatic steatosis. 3. Splenomegaly. DATA REPOSITORY:
[2022-07-14] MEDS: Acetaminophen 325 MG TAB PO ×3 (00:20→19:55)
[2022-07-14 07:19] VITALS: BP 121/56; PULSE 86; RESP 18; TEMP 36.9; O2SAT 93
[2022-07-14 07:19] LABS: Abs Immature Grans 0.05 10^3/uL (0.0-0.06); Absolute Basophil Count 0.04 10^3/uL (0.0-0.2); Absolute Eosinophil Count 0.05 10^3/uL (0.0-0.7); Absolute Lymphocyte Count 0.86 10^3/uL (1.2-3.4); Absolute Monocyte Count 0.52 10^3/uL (0.1-0.8); Absolute Neutrophil Count 4.88 10^3/uL (1.2-6.7); Basophils % 0.6; Eosinophils % 0.8; HCT 26.1 % (36.0-46.0); HGB 8.3 g/dL (11.2-15.7); Immature Grans % 0.8; Lymphocytes % 13.4; MCH 26.8 pg (27.0-33.0); MCHC 31.8 % (32.0-36.0); MCV 84 fL (80-95); MPV 10.1 fL (8.0-11.0); Monocytes % 8.1; Neutrophils % 76.3; Platelet Count 145 10^3/uL (130-400); RDW 16.4 % (11.7-14.6); RDW-SD 48.4 fL
[2022-07-14 07:47] LABS: ALT 37 U/L (14-59); AST 98 U/L (15-37); Albumin 2.8 g/dL (3.4-5.0); Alkaline Phosphatase 129 U/L (46-116); Anion Gap 10.3 mmol/L (3-11); BUN 16 mg/dL (7-18); Bilirubin, Total 4.2 mg/dL (0.2-1.0); CO2 25.7 mmol/L (21.0-32.0); CREATININE 1.2 mg/dL (0.55-1.02); Calcium 8.4 mg/dL (8.5-10.1); Chloride 99 mmol/L (98-107); Estimated GFR 50.23 (mL/min/1.73m2); Glucose 107 mg/dL (74-106); Magnesium 1.6 mg/dL (1.8-2.4); Sodium 135 mmol/L (136-145); Total Protein 6.4 g/dL (6.4-8.2)
[2022-07-14] MEDS: Sucralfate 1 GM TAB PO ×2 (07:50→16:34)
[2022-07-14] MEDS: Pantoprazole 40 MG VIAL IVP ×2 (07:51→19:37)
[2022-07-14] MEDS: Normal Saline Flush 10 ML SYR IVP ×2 (07:51→19:37)
[2022-07-14] MEDS: Budesonide/Formoterol 80/4.5 6.9 GM 60 PUFF INH IH ×2 (07:58→19:36)
--- NOTE | 2022-07-14 08:57 | INITIAL_ITS ---
- If Service Date Differs Date of service: 07/14/22 Time of Service: 08:57 Care Management Initial Assess REASON FOR HOSPITALIZATION:: GI Bleed PAST MEDICAL HISTORY/PAST SURGICAL HISTORY:: All Active Problems . GI (gastrointestinal bleed) (Acute). Medical History . Alcohol abuse. Asthma. GERD (gastroesophageal reflux disease). Hypertension. Nausea and vomiting. Obesity (BMI 30-39.9). Seasonal allergies. Surgical History . Hx of colonoscopy. Hx of esophagogastroduodenoscopy. S/P appendectomy PREVIOUS FUNCTIONAL STATUS/SOCIAL/FAMILY SUPPORTS:: Margot lives alone with her 2 kittens in a single family home in [place], [place] 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 Margot is and has 3 adult children, all of whom live out of state. She also has 3 grandchildren and she shared that she is looking forward to having the whole family visit for Thanksgiving. Margot is independent at baseline and does not receive any commmunity services. CURRENT FUNCTIONAL STATUS:: Margot was sitting up in a chiar when CM met with her. She was polite and agreeable to conversation but a bit reserved initially. After a few minutes, she became much more engaged and talkative. Margot talked about her lift in [place], [place] and how much happier she is in [place]. 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 She also loves to entertain and have dinner parties. Margot has not completed Advanced Directives and requested that CM assist with that process. ADVANCE DIRECTIVES:: none on file Has patient been provided with info about the portal/API?: Yes Did the patient sign up for the portal?: No CODE STATUS:: Full Code INSURANCE COVERAGE / FINANCIAL ISSUES:: BC BS CURRENT HOME/COMMUNITY SERVICES/EQUIPMENT:: none PRIMARY CARE PHYSICIAN:: Dylon Rey POTENTIAL DISCHARGE NEEDS:: follow up with PCP and plan of care PATIENT/FAMILY EDUCATION NEEDS:: Review of discharge instructions, limitations, activity, diet, medications, Ask Me Three TRANSPORTATION:: via private vehicle with family PLAN:: Anticipate Margot will discharge home with no new services when medically cleared by provider. She will follow up with her community providers and plan of care and transport with family. CM will follow and assess for discharge concerns.
[2022-07-14] MEDS: Folic Acid 1 MG TAB PO (10:37)
--- NOTE | 2022-07-14 11:49 | CHAPLAIN ---
Margot was up in the chair when I visited. She was pleasant and engaged in a conversation telling me about her move from [facility] to her second home in [place], which became a permanent move when she was approved to work remotely during the pandemic. Margot works the [employer]. She spoke about all that she loves about living in [place], what she didn't like about living in [place]. She's been in touch with family by phone, and said she's feeling better. She'll be having real food for lunch, the first solid food in several days, so she looking forward to that.
[2022-07-14 12:29] LABS: HCT 26.4 % (36.0-46.0); HGB 7.9 g/dL (11.2-15.7)
[2022-07-14 14:59] VITALS: BP 108/71; PULSE 81; RESP 18; TEMP 37.1; O2SAT 95
--- NOTE | 2022-07-14 15:39 | W.PM.PROGNOT ---
Date of Service Date of service: 07/14/22 Time of Service: 15:39 Assessment and Plan Assessment and plan (1) GI (gastrointestinal bleed): Status: Acute Assessment and plan: Similar history in May of this year. Transfused 2 units p RBCs Hgb increased only to 8.3. Then, this AM, Hgb was 7.9. No stools since admission; no melena. Protonix 40mg IV BID. Carafate BID Alcohol avoidance discussed. Previous EGD was concerning for Barrets esophagus; no bx d/t GI bleed. Will need outpt f/u for EGD and bx once stable. Monitor H/H. 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 She has never had a symptomatic withdrawal from alcohol but has never abstained for any significant period of time CIWA score of 4 this AM. Folate noted to be low at last admission; will supplement. B12 was normal. (3) Asthma: Assessment and plan: No acute exacerbation. Cont Dulera and prn albuterol (4) Hypertension: Assessment and plan: Holding olmesartan-HCTZ d/t low BP in background of blood loss. Pt had cut the dosage of this medication in half in the recent past, but then was told by her PCP to increase back to a full dose, which she has been taking. Monitor. Subjective Subjective Patient reports: no new complaints, feels better and tolerating liquids well; denies bowel movement (since last PM), vomiting or shortness of breath Exam Narrative Exam Narrative: Sitting in recliner. Pleasant and conversational. Const General: cooperative and no acute distress Nutritional Appearance: overweight Orientation: alert and oriented x3 Eyes General: appearance normal, both eyes and all related structures Conjunctivae: conjunctival abnormality bilaterally (pale palpebral conjunctivae) and other Sclera: sclerae normal Resp Effort & Inspection: normal respiratory effort Auscultation: clear to auscultation bilaterally Cardio Rate: regular rate Rhythm: regular rhythm Heart Sounds: S1 normal and S2 normal GI Palpation: soft and tender in the epigastrum (mild); with no rebound tenderness Skin General skin exam: no rashes or lesions noted, no jaundice and no pallor Neuro General: patient alert, patient oriented x3 and no focal motor deficits Cognition: normal cognition Speech: speech normal Extrem General: no pedal edema and no calf tenderness Psych Appearance: grossly normal Mental Status: mental status grossly normal Objective Last Vital Signs Temp 37.1 C 07/14/22 14:59 Pulse 81 07/14/22 14:59 Resp 18 07/14/22 14:59 BP 108/71 07/14/22 14:59 Pulse Ox 95 07/14/22 14:59 Laboratory Results - last 24 hr 07/13/22 07/13/22 07/13/22 14:05 15:35 16:32 WBC RBC Hgb Hct MCV MCH MCHC RDW Plt Count MPV Immature Gran % Neutrophils % Lymphocytes % Monocytes % Eosinophils % Basophils % Nucleated RBC % Absolute Neutrophils Absolute Lymphocytes Absolute Monocytes Absolute Eosinophils Absolute Basophils Sodium Potassium Chloride Carbon Dioxide Anion Gap BUN Creatinine Est GFR (CKD-EPI 2020) Glucose Calcium Magnesium Total Bilirubin AST ALT Alkaline Phosphatase Troponin I Cancelled Total Protein Albumin COVID-19 Source Nasal/Nares SARS-CoV-2 (PCR) Negative Patient ABO/Rh O Positive Antibody Screen NEGATIVE Crossmatch See Detail 07/14/22 07/14/22 07/14/22 06:53 06:53 12:20 WBC 6.40 RBC 3.10 L Hgb 8.3 L 7.9 L Hct 26.1 L 26.4 L MCV 84 MCH 26.8 L MCHC 31.8 L D RDW 16.4 H Plt Count 145 MPV 10.1 Immature Gran % 0.8 Neutrophils % 76.3 Lymphocytes % 13.4 Monocytes % 8.1 Eosinophils % 0.8 Basophils % 0.6 Nucleated RBC % 0.0 Absolute Neutrophils 4.88 Absolute Lymphocytes 0.86 L Absolute Monocytes 0.52 Absolute Eosinophils 0.05 Absolute Basophils 0.04 Sodium 135 L Potassium 4.0 Chloride 99 Carbon Dioxide 25.7 Anion Gap 10.3 BUN 16 Creatinine 1.2 H Est GFR (CKD-EPI 2020) 50.23 Glucose 107 H Calcium 8.4 L Magnesium 1.6 L Total Bilirubin 4.2 H AST 98 H ALT 37 Alkaline Phosphatase 129 H Troponin I Total Protein 6.4 Albumin 2.8 L COVID-19 Source SARS-CoV-2 (PCR) Patient ABO/Rh Antibody Screen Crossmatch PAWSS Have you Been Recently Intoxicated or Drunk Within the Last 30 days?: Yes Have you Ever Experienced Previous Episodes of Alcohol Withdrawal?: No Have you ever Experienced Withdrawal Seizures?: No Have you ever Experienced Delirium Tremens(DT)s?: No Have you ever undergone Alcohol Rehabilitation Treatment (i.e, inpt ot outpatient treatment programs)?: No Have you ever Experienced Blackouts?: No Have you ever Combined Alcohol with other Downers within the last 90 days?: No Have you ever Combined Alcohol with any other Substance of Abuse during the last 90 days?: No Positive Blood Alcohol level on Presentation? [PCS.BAL]: No Evidence of Increased Autonomic Activity (i.e. HR>120, tremor, sweating, agitation, nausea)?: No Result: 1
--- NOTE | 2022-07-14 16:07 | PHA.REVIEW2 ---
Pharmacy Admission Review - Admission Clinical Review (Last Reviewed 07/13/22 @ 16:34 by Ollie Magana MD) GI (gastrointestinal bleed) (Acute) No Known Allergies Allergy (Unverified 07/13/22 13:48) Resuscitation Status Full Code Height 5 ft 3 in Weight 78.2 kg - Renal Dosing Renal Dosing: BUN 16 mg/dL (7-18) 07/14/22 06:53 Creatinine 1.2 mg/dL (0.55-1.02) H 07/14/22 06:53 Medications needing adjustments: Reviewed (crcl = 46, no adjustments needed) - Anticoagulation Anticoagulation: Hgb 7.9 g/dL (11.2-15.7) L 07/14/22 12:20 Hct 26.4 % (36.0-46.0) L 07/14/22 12:20 Plt Count 145 10^3/uL (130-400) 07/14/22 06:53 INR 1.2 (0.9-1.1) H 07/13/22 13:40 Creatinine 1.2 mg/dL (0.55-1.02) H 07/14/22 06:53 DVT Prophylaxis: N/A (none. GI bleed) Therapeutic Anticoagulation: N/A - Opiate Usage Evaluate Pain Scale/Pains Meds: N/A (no pain meds) - Relevant Labs Sodium 135 mmol/L (136-145) L 07/14/22 06:53 Potassium 4.0 mmol/L (3.5-5.1) 07/14/22 06:53 Chloride 99 mmol/L (98-107) 07/14/22 06:53 Magnesium 1.6 mg/dL (1.8-2.4) L 07/14/22 06:53 Electrolytes, C-Reactive P, ESR: Reviewed (mg = 1.6) - DM Control DM Control: Glucose 107 mg/dL (74-106) H 07/14/22 06:53 DM Control: N/A - Cardiac Review Cardiac Review: Troponin I Cancelled 07/13/22 16:32 BP, HR, EF%: Reviewed (on olmesartan/HCTZ 40/12.5 mg at home (had been taking 1/2 tab daily, recently increased back to 1 tab) - currently on hold d/t low BP (blood loss) - monitor) - Qtc Review QTc: Reviewed (QTc = 413 on 07/13) If Elevated, List meds needing intervention: n/a - IV to PO Switch IV Medications: Reviewed (protonix 40 mg IV BID, switch to PO when able) - Home Meds Home Med List reviewed: Reviewed Relevent Home Meds Not ordered & why?: omeprazole sub to protonix IV. olmesartan/hctz held d/t low BP (monitor) - Current meds Current Medication Order Review: Reviewed (lorazepam prn CIWA - none used yet) - Comments Comments/Follow Ups: monitor BP, may need to restart meds if elevated
[2022-07-14 22:50] VITALS: BP 117/64; PULSE 89; RESP 18; TEMP 37.2; O2SAT 93
--- NOTE | 2022-07-15 02:04 | NUR.NOTE ---
Nursing Note: Pt became upset when CIWA protocol of seizure pads were placed on her bed. Pt was educated on the hospital policy. Patient is alert and oriented and up ad philip in room. Charge nurse notified. Pt refused SCDs at this time as well.
[2022-07-15 03:04] VITALS: O2SAT 97
[2022-07-15 06:41] LABS: HCT 24.3 % (36.0-46.0); HGB 7.4 g/dL (11.2-15.7)
[2022-07-15] MEDS: Sucralfate 1 GM TAB PO (08:17)
[2022-07-15] MEDS: Normal Saline Flush 10 ML SYR IVP (08:17)
[2022-07-15] MEDS: Pantoprazole 40 MG VIAL IVP (08:17)
[2022-07-15] MEDS: Folic Acid 1 MG TAB PO (08:17)
[2022-07-15] MEDS: Budesonide/Formoterol 80/4.5 6.9 GM 60 PUFF INH IH (08:22)
[2022-07-15 08:28] VITALS: BP 117/64; PULSE 90; RESP 17; TEMP 36.7; O2SAT 95
--- NOTE | 2022-07-15 10:10 | DSE_ITS ---
Date of service: 07/15/22 Time of Service: 10:10 DS: Diagnosis Discharge Diagnosis (1) GI (gastrointestinal bleed): Status: Acute (2) Alcohol abuse: (3) Asthma: (4) Hypertension: Discharge Plan Disposition Patient Disposition: HOME Condition: Fair Discharge Details Reason For Visit: Upper GI Bleed Admit Date/Time: 07/13/22 14:57 Admit Provider: Ollie Magana Attending Provider: Ollie Magana Primary Care Provider: Dylon Rey Hospital Course Hospital Course: This is a 66 yo female with a h/o upper GI bleed, asthma, HTN, alcohol abuse, obesity.? She presented to the ED complaining of black loose stools, N/V, dizziness.? Last stool was the day prior to presentation She was admitted to [facility] in May of this year for GI bleed.? She underwent an EGD then and was noted to have gastritis/esophagitis. No single source/culprit to explain the blood loss. She was transfused and sent home on a PPI and carafate which she endorses still taking.? Her hgb at presentation this admission was 7.1.? Stool was guaic positive. K normal.? Creatinine 1.1.? Bilirubin elevated at 3.2.? ALT 46. AST 134. Protonix 80mg IV administered. Two units of pRBCs ordered.? Her hgb initially only increased to 8.3 then 7.9. The following day it was 7.4. The patient had no melena/hematochezia during the course of this hospitalization. She did have a CIWA score of 4 on 07/14, then only a 1. She was insistent on being discharged and will f/u with a CBC on Monday, 07/18. She has a scheduled appt already with her PCP. Home Meds and New Rx's Prescriptions: New folic acid 1 mg Tablet 1 mg PO DAILY Qty: 0 0RF Continued Dulera 8.8 GM HFA aerosol inhaler 2 puff Inhalation BID albuterol sulfate 90 mcg/actuation HFA aerosol inhaler 2 puff INHALATION Q4H PRN omeprazole 20 mg capsule,delayed release(DR/EC) 20 mg PO BID Qty: 60 1RF sucralfate 1 gram tablet 1 g PO BID Qty: 60 0RF Held olmesartan-hydrochlorothiazide [Benicar HCT] 1 EACH tablet 0.5 tab PO DAILY Hold Instructions: Hold until systolic BP is 120 or greater Discharge Instructions Instructions: Gastrointestinal Bleeding (DC) Additional Instructions: Return to the emergency room for symptoms of further blood loss; dizziness, weakness, shortness of air. Stand Alone Forms: Nursing Discharge Form Referrals: Dylon Rey MD [Primary Care Provider] - 08/02/22 11:10 am Activity:: Activity as Tolerated Equipment/Supplies:: No Equipment Needed Diet:: Resume usual diet Discharge Orders Discharge Orders: Discharge Order (Routine); Ordered 07/15/22 Ordered By: Ollie Magana Other Ambulatory Orders: Complete Blood Count w/Diff (Routine) Location: None Selected Ordered By: Ollie Magana DS: Summary Time Spent with Patient providing and/or coordinating discharge services: Greater than 30 minutes Status at Discharge Functional status at discharge: independent ambulation Overall status at discharge: patient is progressing back to baseline Mental Status: mental status grossly normal Speech and Movement: speech and movement normal Mood: congruent mood Affect: normal affect Exam Narrative Exam Narrative: Sitting in recliner. Pleasant and conversational. Const General: cooperative and no acute distress Nutritional Appearance: overweight Orientation: alert and oriented x3 Eyes General: appearance normal, both eyes and all related structures Conjunctivae: conjunctival abnormality bilaterally (pale palpebral conjunctivae) and other Sclera: sclerae normal Resp Effort & Inspection: normal respiratory effort Auscultation: clear to auscultation bilaterally Cardio Rate: regular rate Rhythm: regular rhythm Heart Sounds: S1 normal and S2 normal GI Palpation: soft and tender in the epigastrum (mild); with no rebound tenderness Skin General skin exam: no rashes or lesions noted, no jaundice and no pallor Neuro General: patient alert, patient oriented x3 and no focal motor deficits Cognition: normal cognition Speech: speech normal Extrem General: no pedal edema and no calf tenderness Psych Appearance: grossly normal Mental Status: mental status grossly normal Speech and Movement: speech and movement normal Mood: congruent mood Affect: normal affect DS: Data Vitals/I&O Vitals and I&O: Vital Signs Temperature 36.7 C 07/15/22 08:28 Temperature Source Tympanic 07/15/22 08:28 Pulse 90 07/15/22 08:28 Pulse Rhythm Regular 07/15/22 07:15 Pulse 87 07/13/22 15:31 Respiratory Rate 17 07/15/22 08:28 Respiratory Effort Non-Labored 07/15/22 07:15 Respiratory Depth Normal 07/15/22 07:15 Respiratory Pattern Normal 07/15/22 07:15 Blood Pressure 117/64 07/15/22 08:28 Blood Pressure Mean 61 07/13/22 15:30 Blood Pressure Position Sitting 07/13/22 13:26 Pulse Oximetry 95 07/15/22 08:28 Oxygen Delivery Method Room Air 07/15/22 08:28 Oxygen Flow Rate 0 07/15/22 08:28 Pain Level 0 07/15/22 08:28 Comment 07/14/22 07:19 Intake & Output 07/14/22 07/14/22 07/15/22 11:59 23:59 11:59 Intake Total 110 / 320 210 / 320 Output Total 250 / 250 300 / 300 Balance 110 / 70 -40 / 70 -300 / -300 Weight 78.2 kg 78.5 kg Intake: IV Oral 100 / 300 200 / 300 Output: Urine 250 / 250 300 / 300 Other: Urine Color Yellow Straw Light Nika Urine Appearance Clear Clear Clear Urine Odor None Normal Comment urine mixed with brown stool. documenting as an unkown as it was very hard to measure with the loose stool mixture. pt voids independently Stool Occult Blood Negative Stool Size Smear Stool Characteristics Liquid Liquid Brown Voiding Methods Toilet Toilet Data Completed and Pending Labs on day of discharge: Labs from last 24 hours 07/15/22 07/14/22 06:30 12:20 Hgb 7.4 L 7.9 L Hct 24.3 L 26.4 L PFSH All Active Problems GI (gastrointestinal bleed) (Acute) Medical History Alcohol abuse Asthma GERD (gastroesophageal reflux disease) Hypertension Nausea and vomiting Obesity (BMI 30-39.9) Seasonal allergies Surgical History Hx of colonoscopy Hx of esophagogastroduodenoscopy S/P appendectomy Family History Mother Diabetes Breast cancer Other Adopted Social History Smoking/Tobacco Use Status: Never Smoking risk assessment performed?: Yes Alcohol Intake: current Alcohol Intake frequency: 0-2 drinks per day Alcohol type: wine Counseling given: Yes Counseling provided: provider counseling and reduce to 2 or less/day Drug use: Never Substance use type: does not use Do you feel safe at home: Yes Do you feel safe in your relationship?: Yes
--- NOTE | 2022-07-15 10:45 | PDOC.CMDIS ---
- If Service Date Differs Date of service: 07/15/22 Time of Service: 10:45 LACE Index Scoring Tool - Questions: Length of Stay (in days): 2 Acuity (Admit via E.D.?): Yes E.D. Visits: 2 - Answers: Total Score: 7 Risk of Readmission: Low Risk Care Management Discharge Reason for Hospitalization: GI Bleed Discharge Plan: Margot will discharge home with no new services. She will follow up with her community providers and plan of care and transport with family. Patient/Family Education Needs: Review of discharge instructions, limitations, activity, diet, medications, Ask Me Three
== END 2022-07-15 11:40 | disposition home or self-care (01) | DRG 379 ==
LOC: ER 15:41 → MS 15:44
PROVIDERS: Admitting Provider Family Medicine; Emergency Provider Registered Nurse Emergency; PCP Family Medicine; Visit Provider Family Medicine
DX: K92.1 Melena (principal); J45.909 Unspecified asthma, uncomplicated; I10 Essential (primary) hypertension; K21.9 Gastro-esophageal reflux disease without esophagitis; F10.10 Alcohol abuse, uncomplicated; E66.9 Obesity, unspecified; R42 Dizziness and giddiness; R11.2 Nausea with vomiting, unspecified; Z79.899 Other long term (current) drug therapy; Z68.30 Body mass index [BMI] 30.0-30.9, adult
CPT/HCPCS: 36415; 80053; 83690; 86850; 86900; 86901; 86920; 87635; 93005; 94640; 96361; 96374; 99285; 76700; 80320; 83735; 84484; 85014; 85018; 85025; 85610; 93010; 99222; 99232; 99239; P9016

== ENCOUNTER 2022-07-25 10:10 | Outpatient (REF) | payer BC, SELFPAY ==
[2022-07-25 14:52] LABS: Abs Immature Grans 0.07 10^3/uL (0.0-0.06); Absolute Basophil Count 0.03 10^3/uL (0.0-0.2); Absolute Eosinophil Count 0.05 10^3/uL (0.0-0.7); Absolute Monocyte Count 0.87 10^3/uL (0.1-0.8); Absolute Neutrophil Count 7.41 10^3/uL (1.2-6.7); Basophils % 0.3; Eosinophils % 0.5; HCT 26.9 % (36.0-46.0); HGB 8.2 g/dL (11.2-15.7); Immature Grans % 0.8; Lymphocytes % 7.7; MCH 26.7 pg (27.0-33.0); MCHC 30.5 % (32.0-36.0); MCV 88 fL (80-95); MPV 12.1 fL (8.0-11.0); Monocytes % 9.5; Neutrophils % 81.2; Platelet Count 187 10^3/uL (130-400); RBC 3.07 10^6/uL (3.93-5.22); RDW 18.6 % (11.7-14.6); RDW-SD 59.4 fL; WBC 9.13 10^3/uL (4.4-10.8)
[2022-07-25 15:06] LABS: ESR 39 mm/hr (0-30)
[2022-07-25 15:22] LABS: ALT 22 U/L (14-59); AST 60 U/L (15-37); Albumin 2.7 g/dL (3.4-5.0); Alkaline Phosphatase 125 U/L (46-116); Anion Gap 10.9 mmol/L (3-11); BUN 6 mg/dL (7-18); Bilirubin, Total 2.1 mg/dL (0.2-1.0); CO2 25.1 mmol/L (21.0-32.0); CREATININE 0.8 mg/dL (0.55-1.02); Calcium 8.5 mg/dL (8.5-10.1); Chloride 98 mmol/L (98-107); Estimated GFR 81.21 (mL/min/1.73m2); Ferritin 36 ng/mL (8-252); Folate 6.4 ng/mL (8.6-20.0); Glucose 115 mg/dL (74-106); Potassium 3.5 mmol/L (3.5-5.1); Sodium 134 mmol/L (136-145); Total Protein 6.4 g/dL (6.4-8.2)
== END 2022-07-25 10:11 | disposition home or self-care (01) ==
LOC: NCHCN 10:10
PROVIDERS: PCP Family Medicine; Visit Provider Family Medicine
DX: D64.9 Anemia, unspecified (principal); K92.2 Gastrointestinal hemorrhage, unspecified
CPT/HCPCS: 80053; 85652; 87338; 82728; 82746; 85025

== ENCOUNTER 2022-09-21 12:11 | Outpatient (REF) | payer BC, SELFPAY ==
[2022-09-21 15:29] LABS: Abs Immature Grans 0.04 10^3/uL (0.0-0.06); Absolute Basophil Count 0.03 10^3/uL (0.0-0.2); Absolute Eosinophil Count 0.07 10^3/uL (0.0-0.7); Absolute Lymphocyte Count 0.77 10^3/uL (1.2-3.4); Absolute Monocyte Count 0.68 10^3/uL (0.1-0.8); Absolute Neutrophil Count 4.48 10^3/uL (1.2-6.7); Basophils % 0.5; Eosinophils % 1.2; HCT 21.6 % (36.0-46.0); Immature Grans % 0.7; Lymphocytes % 12.7; MCH 28.9 pg (27.0-33.0); MCHC 31.5 % (32.0-36.0); MCV 92 fL (80-95); MPV 11.9 fL (8.0-11.0); Monocytes % 11.2; Neutrophils % 73.7; Platelet Count 210 10^3/uL (130-400); RBC 2.35 10^6/uL (3.93-5.22); RDW 19.8 % (11.7-14.6); RDW-SD 65.6 fL; WBC 6.07 10^3/uL (4.4-10.8)
[2022-09-21 15:40] LABS: ALT 16 U/L (14-59); AST 34 U/L (15-37); Alkaline Phosphatase 79 U/L (46-116); Anion Gap 8.4 mmol/L (3-11); BUN 14 mg/dL (7-18); Bilirubin, Direct 1.9 mg/dL (0.0-0.2); Bilirubin, Total 3.8 mg/dL (0.2-1.0); CO2 24.6 mmol/L (21.0-32.0); CREATININE 1.5 mg/dL (0.55-1.02); Calcium 8.5 mg/dL (8.5-10.1); Chloride 98 mmol/L (98-107); Glucose 126 mg/dL (74-106); Sodium 131 mmol/L (136-145); Total Protein 6.2 g/dL (6.4-8.2)
[2022-09-21 15:57] LABS: HGB 6.8 g/dL (11.2-15.7); Potassium 2.6 mmol/L (3.5-5.1)
== END 2022-09-21 12:12 | disposition home or self-care (01) ==
LOC: NCHCN 12:11
PROVIDERS: PCP Family Medicine; Visit Provider Family Medicine
DX: D64.9 Anemia, unspecified (principal); K70.31 Alcoholic cirrhosis of liver with ascites; R60.0 Localized edema; I48.0 Paroxysmal atrial fibrillation
CPT/HCPCS: 80048; 80076; 85025

== ENCOUNTER 2022-10-11 11:10 | Inpatient (IN) | payer BC, SELFPAY ==
[2022-10-11] VITALS (132 sets, daily range): BP systolic 82–131; BP diastolic 34–75; PULSE 81–147; RESP 7–29; TEMP 36.4–37.5; O2SAT 93–100
--- NOTE | 2022-10-11 | DI.RAD_ITS ---
Exam(s) XR PORTABLE CHEST AP EXAM: XR PORTABLE CHEST AP CLINICAL HISTORY: SOB. TECHNIQUE: 2D digital imaging was performed. COMPARISON: CR XR PORTABLE CHEST AP from 05/11/2022 FINDINGS: Single AP portable view. Chest leads in place. Heart size is upper normal. The mediastinum is not widened. Lungs are clear. No infiltrates nor obvious pleural effusions. There appears to be edema in the soft tissues of the lower neck bilaterally. There is a possibly thi s may be related to overlying material. IMPRESSION: Findings as above but without obvious acute pulmonary findings. DATA REPOSITORY: RADIATION DOSE DELIVERED:
--- NOTE | 2022-10-11 | DI.CT_ITS ---
Exam(s) CT CHEST/ABD/PEL WO EXAM: CT CHEST/ABD/PEL WO CLINICAL HISTORY: Anemia, back pain. TECHNIQUE: Imaging Protocol: Axial computed tomography images with coronal and sagittal reformatted images were created and reviewed COMPARISON: CR XR PORTABLE CHEST AP from 10/11/2022 FINDINGS: CHEST: Thyroid: Unremarkable as visualized. Tracheobronchial tree: Patent where visualized. Mediastinum and Maggie: No dominant adenopathy or fluid collection. The esophagus is unremarkable. Pulmonary parenchyma: There is a small left pleural effusion and subjacent infiltrate. Patchy ground -glass infiltrates are seen in the lungs, particularly in the right upper lobe. No architectural dis tortion. Pleura: No right pleural effusion. No pneumothorax. Lymph nodes: Within normal limits. Aorta: Thoracic portion non-dilated. Heart: Not enlarged. No coronary artery calcifications. There are small pericardial fluid. Soft tissues: There is diffuse edema in the soft tissues. Bones: Within normal limits for the patient's age. ABDOMEN: Liver: The liver has a nodular contour suggesting hepatic cirrhosis. No measurable mass. Gallbladder and biliary tract: Gallstones are present. Appears to be some sludge present. No defini te biliary ductal dilatation is seen. Pancreas: Normal density, no abnormal calcifications or inflammatory process. Spleen: The spleen is enlarged. Kidneys: Normal size, contour and axis. No radiodense stones or obstructive uropathy. No masses seen. Adrenal glands: No masses seen. Aorta: Abdominal portion non-dilated. Mild atherosclerosis. Lymph nodes: Within normal limits. PELVIS: Bladder: Symmetric distention, no gross wall thickening. Bowel: There are diverticula seen in the colon but no evidence of acute diverticulitis. There is no evidence of bowel obstruction. No bowel wall thickening is present. No evidence of appendicitis. Peritoneal cavity: There is a moderate amount of abdominal pelvic ascites. Bones: Within normal limits. Reproductive organs: Within normal limits. IMPRESSION: 1. Patchy infiltrate particularly in the right lung suspicious for pneumonia. 2. Small left pleural effusion with subjacent infiltrate which may represent atelectasis or pneumonia . 3. The liver has a nodular contour suggesting hepatic cirrhosis. There is ascites and splenomegaly s uggesting portal hypertension. Please correlate clinically. 4. Generalized anasarca. 5. Cholelithiasis and gallbladder sludge. Gallbladder ultrasound may be considered for further evalu ation. RADIATION DOSE DELIVERED: 1,823.74mGy.cm Total DLP 1,823.74mGy.cm Total DLP DATA REPOSITORY: All CT scans at this facility are submitted to the National Radiology Data Registry (NRDR) Dose Index Registry (DIR) with the [employer] (A[employer]). RADIATION OPTIMIZATION: All CT scans at this facility use at least one of these dose optimization te chniques: automated exposure control; mA and/or kV adjustment per patient size (includes targeted exa ms where dose is matched to clinical indication); or iterative reconstruction.
--- NOTE | 2022-10-11 11:15 | RT.EKG_ITS ---
APPROVED REPORT Exam: Resting ECG Reason for Exam: Chest pain Patient Location: E HR:120 bpm ECG Measurements Heart Rate 120 AXIS OR 142 P 0 QRSd 89 QRS 91 QT 245 T 223 QTc 346 Conclusion Sinus tachycardia. Right axis deviation. Low voltage, extremity and precordial leads.. Nonspecific st changes
[2022-10-11 11:53] LABS: Abs Immature Grans 0.05 10^3/uL (0.0-0.06); Absolute Basophil Count 0.02 10^3/uL (0.0-0.2); Absolute Eosinophil Count 0.11 10^3/uL (0.0-0.7); Absolute Lymphocyte Count 0.79 10^3/uL (1.2-3.4); Absolute Monocyte Count 0.58 10^3/uL (0.1-0.8); Absolute Neutrophil Count 5.74 10^3/uL (1.2-6.7); Basophils % 0.3; Eosinophils % 1.5; Immature Grans % 0.7; Lymphocytes % 10.8; MCH 28.7 pg (27.0-33.0); MCHC 32.9 % (32.0-36.0); MCV 87 fL (80-95); MPV 10.7 fL (8.0-11.0); Neutrophils % 78.7; Platelet Count 127 10^3/uL (130-400); RBC 1.67 10^6/uL (3.93-5.22); RDW 18.6 % (11.7-14.6); RDW-SD 60.4 fL; WBC 7.29 10^3/uL (4.4-10.8)
[2022-10-11 11:57] LABS: Ammonia 22 umol/L (11-32)
[2022-10-11 12:05] LABS: HGB 4.8 g/dL (11.2-15.7)
[2022-10-11 12:06] LABS: HCT 14.6 % (36.0-46.0)
[2022-10-11 12:14] LABS: ALT 8 U/L (14-59); AST 28 U/L (15-37); Albumin 2.7 g/dL (3.4-5.0); Alkaline Phosphatase 60 U/L (46-116); Anion Gap 15.7 mmol/L (3-11); BUN 40 mg/dL (7-18); Bilirubin, Total 2.5 mg/dL (0.2-1.0); CO2 18.3 mmol/L (21.0-32.0); CREATININE 3.4 mg/dL (0.55-1.02); Calcium 8.4 mg/dL (8.5-10.1); Chloride 95 mmol/L (98-107); Estimated GFR 14.31 (mL/min/1.73m2); Glucose 118 mg/dL (74-106); Lipase 83 U/L (16-77); Magnesium 1.8 mg/dL (1.8-2.4); NT-proBNP 5914 pg/mL (<300); Sodium 129 mmol/L (136-145); Troponin I < 50 ng/L (<or=60)
[2022-10-11 12:15] LABS: Potassium 2.6 mmol/L (3.5-5.1)
[2022-10-11 12:22] LABS: INR 1.3 (0.9-1.1); PTT Activated 26.6 sec (21.5-31.9); Prothrombin Time 13.4 sec (9.3-11.0)
[2022-10-11 12:28] LABS: Diff Comment Diff Reviewed; Hypochromasia 3+
[2022-10-11 12:29] LABS: Polychromasia Present
[2022-10-11 12:30] LABS: Poikilocytes 2+
--- NOTE | 2022-10-11 13:25 | ED.GENADUL_ITS ---
Discharge Plan Disposition Patient Disposition: Admit to [facility] Condition: Serious Discharge Details Clinical Impression: Severe anemia, MINI (acute kidney injury), GI (gastrointestinal bleed) Admit Date/Time: 10/11/22 13:33 Admit Provider: Ollie Magana Attending Provider: Ollie Magana Primary Care Provider: Dylon Rey ED Provider: Kranthi Mendez Discharge Data Discharge Date/Time-TO BE ENTERED AT DEPARTURE: 10/11/22 15:40 Medical Decision Making Patient presenting to the emergency department for chief complaint of chest pain shortness of breath. Patient states this has been going on for months but seems to have worsened over the past couple days. Attempted to see primary care provider and they sent her here for further evaluation. Patient reports history of cirrhosis and need of a liver transplant. She does state that she had some GI bleeding in August and had a colonoscopy performed with repair of viewed bleed and denies any further rectal bleeding, hematuria bloody emesis or other obvious bleeding. Patient denies any current pain or discomfort at this time but does state generalized swelling. Physical exam does show diffuse edema, tachycardia, tachypnea soft nontender abdomen no obvious bruising but skin does have slight jaundice color to it. We will plan on checking patient's labs EKG. See physician interpretation for full interpretation of EKG but upon my review patient has sinus rhythm, tachycardia, no findings to suggest acute STEMI. We will continue to monitor. Labs reviewed and patient does have critically low hemoglobin of 4.8. Patient had decrease GFR from baseline with significant elevation of BUN/creatinine, negative troponin, BNP is elevated at 5914. Patient also had hypokalemia. I suspect occult GI bleed that is causing patient's chest pain and shortness of breath. There also appears to be acute kidney injury with rapid decrease of her GFR. Did discuss with patient risk versus benefit of transfusion which she states she has had multiple transfusions in the past and states clear understanding of risk versus benefit. 2 units were ordered and patient was admitted to hospitalist team for further transfusion, monitoring, and consultation as needed. I did also order IV potassium. I do not feel at this time that patient's chest discomfort and shortness of breath is cardiac in nature. Patient was agreeable to admission. Lab Data Lab results reviewed: Yes I reviewed the patient's lab results. HPI General Mode of arrival: wheelchair . Date/Time Provider Initiated Documentation: 10/11/22 11:12 . Limitations to Documentation: no limitations . Information obtained by: patient, family and RN notes reviewed . History of Present Illness 67 year old F presents to the emergency department with the chief complaint of Shortness of breath, chest pain, fatigue, described as moderate and similar to prior episodes, with intensity rated at 2. Quality is described as aching, and is localized to the chest. Patient reports no radiation. Patient started experiencing this month(s) (2) and it has been constant. No relieving factors improve symptom(s), No exacerbating factors reported . Patient did receive the following treatments prior to arrival, none Related Data Home Medications Medication Instructions Recorded Confirmed mometasone-formoterol HFA 200 2 puff inhalation BID 03/22/15 10/11/22 mcg-5 mcg/actuation aerosol inhaler (Dulera) albuterol sulfate 90 mcg/actuation 2 puff inhalation Q4H PRN 05/11/22 10/11/22 aerosol inhaler sucralfate 1 gram tablet 1 g PO BID #60 tabs 05/12/22 10/11/22 metoprolol tartrate 25 mg tablet 12.5 mg PO BID 10/11/22 10/11/22 omeprazole 20 mg capsule,delayed 20 mg PO PRN PRN 10/11/22 10/11/22 release potassium chloride 20 mEq 20 meq PO DAILY 10/11/22 10/11/22 tablet,extended release rifaximin 550 mg tablet (Xifaxan) 550 mg PO BID 10/11/22 10/11/22 spironolactone 25 mg tablet 25 mg PO DAILY 10/11/22 10/11/22 Previous Rx's Medication Instructions Recorded sucralfate 1 gram tablet 1 g PO BID #60 tabs 05/12/22 Allergies Allergy/AdvReac Type Severity Reaction Status Date / Time No Known Allergies Allergy Unverified 07/13/22 13:48 General Stated Complaint: GenMedical CLIFFORD: 2 Review of Systems Constitutional Constitutional: Denies chills, Reports fatigue, Denies fever(s), Denies headache(s), Reports lethargy, Reports malaise and Reports weakness ENT Ears, Nose, Mouth, and Throat: Denies dizziness and Denies headache(s) Cardiovascular Cardiovascular: Reports chest pain, Denies syncope, Reports leg edema, Reports lightheadedness, Reports dyspnea and Reports dyspnea on exertion Respiratory Respiratory: Denies chest congestion, Denies cough, Reports dyspnea and Reports dyspnea on exertion Gastrointestinal Gastrointestinal: Denies abdominal pain, Denies melena, Reports bloating and Denies hematochezia Genitourinary Genitourinary: Denies hematuria and Denies dysuria Integumentary/Breasts Skin/Breast: Denies rash Neurologic Neurologic: Denies confusion, Denies dizziness, Denies syncope, Denies headache(s) and Reports weakness Psychiatric Psychiatric: Denies confusion Endocrine Endocrine: Reports fatigue Hematologic/Lymphatic Hematologic/Lymphatic: Denies easy bleeding PFSH All Active Problems (Updated 10/15/22 @ 08:58 by Kranthi Mendez NP) Esophageal varices (Acute) Portal hypertensive gastropathy (Acute) Portal hypertension (Acute) Pharyngitis (Acute) Alcoholic cirrhosis (Chronic) Hepatorenal syndrome (Acute) Cirrhosis (Acute) Pleural effusion (Acute) Anasarca (Acute) Hypokalemia (Acute) MINI (acute kidney injury) (Acute) Severe anemia (Acute) GI (gastrointestinal bleed) (Acute) Medical History Alcohol abuse Asthma GERD (gastroesophageal reflux disease) Hypertension Nausea and vomiting Obesity (BMI 30-39.9) Seasonal allergies Surgical History Hx of colonoscopy Hx of esophagogastroduodenoscopy S/P appendectomy Family History Mother Diabetes Breast cancer Other Adopted Social History Smoking/Tobacco Use Status: Never Smoking risk assessment performed?: Yes Alcohol Intake: current Alcohol Intake frequency: 0-2 drinks per day Alcohol type: wine Counseling given: Yes Counseling provided: provider counseling and reduce to 2 or less/day Drug use: Never Substance use type: does not use Do you feel safe at home: Yes Do you feel safe in your relationship?: Yes Exam Const General: cooperative, comfortable and not diaphoretic Orientation: alert, awake and oriented x3 Limitations: mental status not altered Neck Neck: normal visual inspection, trachea midline, supple and no anterior neck swelling Carotids: normal carotid upstroke and no bruits Resp Effort & Inspection: normal respiratory effort and able to speak in complete sentences Auscultation: clear to auscultation bilaterally Cardio Jugular venous pressure: no JVD Palpation: normal PMI Rate: tachycardic Rhythm: regular rhythm Pulses: radial pulses present bilaterally 2+ GI Inspection: normal to inspection, distended and obesity Palpation: soft, no aortic enlargement, no pulsatile masses and nontender Skin General skin exam: jaundice (Mild), no petechiae, no purpura and pallor Neuro General: patient alert, patient awake, patient oriented x3 and moves all extremities Course Vital Signs Vital signs: Vital Signs Temperature 36.7 C 10/11/22 11:16 Pulse 115 H 10/11/22 11:16 Respiratory Rate 24 10/11/22 11:16 Blood Pressure 124/36 L 10/11/22 11:16 Pulse Oximetry 100 10/11/22 11:16 Temperature 36.7 C 10/11/22 11:16 Pulse 120 H 10/11/22 13:16 Pulse 122 H 10/11/22 13:20 Respiratory Rate 21 10/11/22 13:20 Respiratory Effort 10/11/22 12:15 Respiratory Depth Deep 10/11/22 12:15 Respiratory Pattern Tachypnea 10/11/22 12:15 Blood Pressure 100/47 L 10/11/22 13:16 Blood Pressure Mean 57 10/11/22 13:16 Blood Pressure Position Sitting 10/11/22 11:16 Pulse Oximetry 99 10/11/22 13:20 Oxygen Delivery Method Room Air 10/11/22 11:16 Oxygen Flow Rate 0 10/11/22 11:16 Pain Level 0 10/11/22 11:16 Lab/Test Results Lab/Test Results: Laboratory Tests Range/Units 10/11/22 10/11/22 10/11/22 11:40 11:40 11:40 WBC (4.4-10.8) 10^3/uL 7.29 RBC (3.93-5.22) 10^6/uL 1.67 L Hgb (11.2-15.7) g/dL 4.8 L* Hct (36.0-46.0) % 14.6 L* MCV (80-95) fL 87 MCH (27.0-33.0) pg 28.7 MCHC (32.0-36.0) % 32.9 RDW (11.7-14.6) % 18.6 H Plt Count (130-400) 10^3/uL 127 L MPV (8.0-11.0) fL 10.7 Immature Gran % 0.7 Neutrophils % 78.7 Lymphocytes % 10.8 Monocytes % 8.0 Eosinophils % 1.5 Basophils % 0.3 Nucleated RBC % (0.0-0.3) % 0.0 Absolute Neutrophils (1.2-6.7) 10^3/uL 5.74 Absolute Lymphocytes (1.2-3.4) 10^3/uL 0.79 L Absolute Monocytes (0.1-0.8) 10^3/uL 0.58 Absolute Eosinophils (0.0-0.7) 10^3/uL 0.11 Absolute Basophils (0.0-0.2) 10^3/uL 0.02 RBC Morphology See Below Polychromasia Present Hypochromasia 3+ Poikilocytosis 2+ PT (9.3-11.0) sec INR (0.9-1.1) APTT (21.5-31.9) sec Sodium (136-145) mmol/L 129 L Potassium (3.5-5.1) mmol/L 2.6 L* Chloride (98-107) mmol/L 95 L Carbon Dioxide (21.0-32.0) mmol/L 18.3 L Anion Gap (3-11) mmol/L 15.7 H BUN (7-18) mg/dL 40 H Creatinine (0.55-1.02) mg/dL 3.4 H Est GFR (CKD-EPI 2020) (mL/min/1.73m2) 14.31 Glucose (74-106) mg/dL 118 H Calcium (8.5-10.1) mg/dL 8.4 L Magnesium (1.8-2.4) mg/dL 1.8 Total Bilirubin (0.2-1.0) mg/dL 2.5 H AST (15-37) U/L 28 ALT (14-59) U/L 8 L Alkaline Phosphatase (46-116) U/L 60 Ammonia (11-32) umol/L 22 Troponin I (<or=60) ng/L < 50 NT-Pro-B Natriuret Pep (<300) pg/mL 5914 H Total Protein (6.4-8.2) g/dL 6.0 L Albumin (3.4-5.0) g/dL 2.7 L Lipase (16-77) U/L 83 H Patient ABO/Rh Antibody Screen Crossmatch Range/Units 10/11/22 10/11/22 11:40 12:09 WBC (4.4-10.8) 10^3/uL RBC (3.93-5.22) 10^6/uL Hgb (11.2-15.7) g/dL Hct (36.0-46.0) % MCV (80-95) fL MCH (27.0-33.0) pg MCHC (32.0-36.0) % RDW (11.7-14.6) % Plt Count (130-400) 10^3/uL MPV (8.0-11.0) fL Immature Gran % Neutrophils % Lymphocytes % Monocytes % Eosinophils % Basophils % Nucleated RBC % (0.0-0.3) % Absolute Neutrophils (1.2-6.7) 10^3/uL Absolute Lymphocytes (1.2-3.4) 10^3/uL Absolute Monocytes (0.1-0.8) 10^3/uL Absolute Eosinophils (0.0-0.7) 10^3/uL Absolute Basophils (0.0-0.2) 10^3/uL RBC Morphology Polychromasia Hypochromasia Poikilocytosis PT (9.3-11.0) sec 13.4 H INR (0.9-1.1) 1.3 H APTT (21.5-31.9) sec 26.6 Sodium (136-145) mmol/L Potassium (3.5-5.1) mmol/L Chloride (98-107) mmol/L Carbon Dioxide (21.0-32.0) mmol/L Anion Gap (3-11) mmol/L BUN (7-18) mg/dL Creatinine (0.55-1.02) mg/dL Est GFR (CKD-EPI 2020) (mL/min/1.73m2) Glucose (74-106) mg/dL Calcium (8.5-10.1) mg/dL Magnesium (1.8-2.4) mg/dL Total Bilirubin (0.2-1.0) mg/dL AST (15-37) U/L ALT (14-59) U/L Alkaline Phosphatase (46-116) U/L Ammonia (11-32) umol/L Troponin I (<or=60) ng/L NT-Pro-B Natriuret Pep (<300) pg/mL Total Protein (6.4-8.2) g/dL Albumin (3.4-5.0) g/dL Lipase (16-77) U/L Patient ABO/Rh O Positive Antibody Screen NEGATIVE Crossmatch See Detail Critical Care Time Critical Care Time Critical Care Time: Yes Total Critical Care Time: 40 Attestation: Due to severe anemia suspected occult GI bleed with high probability of imminent or life threatening deterioration in the patient?s condition without intervention and treatment. Time spent documenting, reviewing labs, monitoring titration/ Vital signs, bedside time discussing condition with patient, and speaking with hospitalist in regards to admission.
[2022-10-11] MEDS: POTASSIUM CHLORIDE 20 MEQ/100 ML BAG 50 MEQ IVPB (13:46)
[2022-10-11 13:53] LABS: Source Nasal/Nares
--- NOTE | 2022-10-11 14:22 | W.SURGCON ---
Date of service: 10/11/22 Time of Service: 14:22 Assessment and Plan Assessment and plan (1) GI (gastrointestinal bleed): Status: Acute Assessment and plan: She is already receiving transfusion of packed red blood cells, and I recommended treatment with vitamin K assuming her underlying liver disease may be contributing to her elevated INR. Obviously, her liver disease puts her at risk for variceal bleeding, but the angiodysplastic lesions of her colon went to the large intestine as the source of blood loss. In that regard, I think there is any benefit to a colon prep and planned upper and lower endoscopy if her hemodynamics and lab support at that time. Obviously, her tachycardia is the most worrisome thing here. And, certainly, if it does not improve, we may be forced to proceed with EGD sooner rather than later. History of Present Illness History of Present Illness Chief Complaint: shortness of breath Narrative: Margot is a 67 year old woman who present to the ED with chest discomfort and shortness of breath. She was found to have a hgb around 4.8. This is similar to her experience she had back in May. At that time, I performed EGD and found some diffuse gastritis. At that time, she had an appropriate response to transfusion of blood products, was ultimately discharged. She had another episode of gastrointestinal hemorrhage in July, and she tells me that she underwent what sounds like an EGD and colonoscopy in early August at [facility] for more GI bleeding. Report. She had multiple polyps removed, and more importantly two angiodysplastic lesions in the ascending colon that were injected and cauterized. Currently, her main complaint is difficulty breathing. She denies melena, hematochezia, or hematemesis. She denies abdominal pain. Review of Systems Constitutional Constitutional: Reports system reviewed and no additional complaints, except as documented Eyes Eyes: Reports system reviewed and no additional complaints, except as documented ENT Ears, Nose, Mouth, and Throat: Reports system reviewed and no additional complaints, except as documented Cardiovascular Cardiovascular: Reports rapid heart rate, Reports dyspnea and Reports dyspnea on exertion Respiratory Respiratory: Reports dyspnea and Reports dyspnea on exertion Gastrointestinal Gastrointestinal: Denies abdominal pain and Denies change in stool character Musculoskeletal Musculoskeletal: Reports muscle weakness Hematologic/Lymphatic Hematologic/Lymphatic: Denies easy bleeding and Denies easy bruising PFSH All Active Problems Hypokalemia (Acute) MINI (acute kidney injury) (Acute) Severe anemia (Acute) GI (gastrointestinal bleed) (Acute) Medical History Alcohol abuse Asthma GERD (gastroesophageal reflux disease) Hypertension Nausea and vomiting Obesity (BMI 30-39.9) Seasonal allergies Surgical History Hx of colonoscopy Hx of esophagogastroduodenoscopy S/P appendectomy Family History Mother Diabetes Breast cancer Other Adopted Social History Smoking/Tobacco Use Status: Never Smoking risk assessment performed?: Yes Alcohol Intake: current Alcohol Intake frequency: 0-2 drinks per day Alcohol type: wine Counseling given: Yes Counseling provided: provider counseling and reduce to 2 or less/day Drug use: Never Substance use type: does not use Do you feel safe at home: Yes Do you feel safe in your relationship?: Yes Exam Const General: cooperative and anxious Nutritional Appearance: overweight Orientation: awake and oriented x3 HENMT Head: normal to inspection Eyes General: appearance normal, both eyes and all related structures Conjunctivae: conjunctivae normal Sclera: sclerae normal Neck Neck: normal visual inspection and full ROM Resp Effort & Inspection: normal respiratory effort and able to speak in complete sentences Auscultation: bronchial breath sounds and wheezes Cardio Jugular venous pressure: no JVD Rate: regular rate Heart Sounds: S1 normal and S2 normal GI Inspection: non-distended Palpation: soft, no guarding, no hernias and nontender Auscultation: normal bowel sounds Skin General skin exam: normal turgor Neuro General: patient alert, patient awake and patient oriented x3 Cognition: normal cognition Extrem Right lower extremity: no edema Left lower extremity: no edema Results Last Vital Signs Temp 98.1 F 10/11/22 11:16 Pulse 120 H 10/11/22 13:16 Resp 21 10/11/22 13:20 BP 100/47 L 10/11/22 13:16 Pulse Ox 99 10/11/22 13:20 Labs Result diagrams: 10/11/22 11:40 10/11/22 11:40 Labs: Laboratory Results - last 24 hr 10/11/22 10/11/22 10/11/22 11:40 11:40 11:40 WBC 7.29 RBC 1.67 L Hgb 4.8 L* Hct 14.6 L* MCV 87 MCH 28.7 MCHC 32.9 RDW 18.6 H Plt Count 127 L MPV 10.7 Immature Gran % 0.7 Neutrophils % 78.7 Lymphocytes % 10.8 Monocytes % 8.0 Eosinophils % 1.5 Basophils % 0.3 Nucleated RBC % 0.0 Absolute Neutrophils 5.74 Absolute Lymphocytes 0.79 L Absolute Monocytes 0.58 Absolute Eosinophils 0.11 Absolute Basophils 0.02 RBC Morphology See Below Polychromasia Present Hypochromasia 3+ Poikilocytosis 2+ PT INR APTT Sodium 129 L Potassium 2.6 L* Chloride 95 L Carbon Dioxide 18.3 L Anion Gap 15.7 H BUN 40 H Creatinine 3.4 H Est GFR (CKD-EPI 2020) 14.31 Glucose 118 H Calcium 8.4 L Magnesium 1.8 Total Bilirubin 2.5 H AST 28 ALT 8 L Alkaline Phosphatase 60 Ammonia 22 Troponin I < 50 NT-Pro-B Natriuret Pep 5914 H Total Protein 6.0 L Albumin 2.7 L Lipase 83 H COVID-19 Source Patient ABO/Rh Antibody Screen Crossmatch 10/11/22 10/11/22 10/11/22 11:40 12:09 13:41 WBC RBC Hgb Hct MCV MCH MCHC RDW Plt Count MPV Immature Gran % Neutrophils % Lymphocytes % Monocytes % Eosinophils % Basophils % Nucleated RBC % Absolute Neutrophils Absolute Lymphocytes Absolute Monocytes Absolute Eosinophils Absolute Basophils RBC Morphology Polychromasia Hypochromasia Poikilocytosis PT 13.4 H INR 1.3 H APTT 26.6 Sodium Potassium Chloride Carbon Dioxide Anion Gap BUN Creatinine Est GFR (CKD-EPI 2020) Glucose Calcium Magnesium Total Bilirubin AST ALT Alkaline Phosphatase Ammonia Troponin I NT-Pro-B Natriuret Pep Total Protein Albumin Lipase COVID-19 Source Nasal/Nares Patient ABO/Rh O Positive Antibody Screen NEGATIVE Crossmatch See Detail
[2022-10-11 14:31] LABS: COVID-19 PCR Negative (Negative)
--- NOTE | 2022-10-11 14:44 | HPE_ITS ---
Date of service: 10/11/22 Time of Service: 14:46 Assessment and Plan Assessment and plan (1) Severe anemia: Status: Acute Assessment and plan: The patient came in with and H&H of 4.8 & 17.5 and is receiving 2 units of PRBC's Will repeat CBC at 21:00 today post transfusion of the 2 units of PRBC. We will transfused one unit FFP Will transfuse a 3rd unit of PRBCs, then complete a CBC for 01:00 AM The patient might benefit from testing of anemia marker such as Fe, folate at her later time during this admission; She mentioned stopping her iron supplementation. CT scan of the abdomen. (2) MINI (acute kidney injury): Status: Acute Assessment and plan: Creatinine is 3.4 today. It was 0.8 in July 2022, 1.5 in September 2022. GFR is also in the lower range at 14.31, BNP 5914. We do not have a result for albuminuria. This picture rises questions regarding MINI on CKD. Acute Kidney injury:Mostly from re-renal azotemia. Patient is receiving 3 units of PRBCs and a unit of FFP which can count as volume replacement. We will evaluate further after blood transfusion BMP at 21:00 and in AM. (3) Hypokalemia: Status: Acute Assessment and plan: We will replace potassium and f/u on the level at 21:00 with the BMP. (4) GI (gastrointestinal bleed): Status: Acute Assessment and plan: Surgical consult 2 PRBC in progress Repeat CBC at 21:00 and in AM we will continue omeprazole (5) Asthma: Assessment and plan: We will continue Symbicort and PRN albuterol (6) On deep vein thrombosis (DVT) prophylaxis: Status: Acute Assessment and plan: Patient is not a candidate for pharmacological therapy , we will start SCD's (7) Discharge planning issues: Status: Acute Assessment and plan: Undetermined plan at this time due to patient's acuity History of Present Illness History of Present Illness Chief Complaint: Chest pain and shortness of breath Consults Consult date: 10/11/22 Requesting physician: Kranthi Ward Narrative: This 67 years old female with a history of atrial fibrillation,Asthma, cirrhosis in need of a liver transplant, and GI bleeding on August with repair of a viewed bleed, presented to the ED for shortness of breath and chest pain. She denies nausea, vomiting, hematochezia, melena, hematuria or other bleeding sites. She mentioned that after receiving a call from [facility] in September to verify her information for prospective liver transplant, she had not received f/u call for a date for the first appointment. She reports new back constant achy pain starting a few days ago after she had to sleep upright in her futon. She reports back lumbo-sacral back pain, 04/13 as per Ryan, passing flatus.H&H was 4.8 & 14.6 , platelets 127, Na 129, K 2.6, BUN 40, Creatinine 3.4, BNP 5914.The patient was admitted as a medical inpatient for 2 units of PRBCs transfusion and further work-up. Review of Systems Constitutional Constitutional: Reports as per HPI, Reports anorexia, Reports difficulty sleeping (lying flat), Reports fatigue, Denies headache(s), Reports lethargy, Reports malaise, Reports poor appetite and Reports weakness Eyes Eyes: Denies change in vision ENT Ears, Nose, Mouth, and Throat: Denies bleeding gums, Denies dysphagia, Denies headache(s) and Denies sore throat Cardiovascular Cardiovascular: Reports chest pain (on exertion), Denies syncope, Reports palpitations, Reports dyspnea, Reports dyspnea on exertion and Reports orthopnea Respiratory Respiratory: Reports dyspnea, Reports dyspnea on exertion and Reports wheezing Gastrointestinal Gastrointestinal: Denies abdominal pain, Denies melena, Denies hematochezia, Reports change in bowel habits, Denies change in stool character, Denies dysphagia, Denies excessive flatus, Denies dyspepsia, Denies heartburn, Denies fecal incontinence, Reports diarrhea, Denies nausea, Denies vomiting and Denies hematemesis Genitourinary Genitourinary: Denies hematuria and Denies difficulty voiding Musculoskeletal Musculoskeletal: Reports limited range of motion and Reports stiffness Neurologic Neurologic: Denies confusion, Denies syncope, Denies headache(s), Denies memory loss and Reports weakness Psychiatric Psychiatric: Denies confusion and Denies memory loss Endocrine Endocrine: Reports fatigue and Reports palpitations Hematologic/Lymphatic Hematologic/Lymphatic: Denies easy bleeding, Denies easy bruising and Denies lymphadenopathy Allergic/Immunologic Allergic/Immunologic: Reports wheezing PFSH All Active Problems (Updated 10/12/22 @ 15:58 by Ollie Magana MD) Cirrhosis (Acute) Pleural effusion (Acute) Anasarca (Acute) Discharge planning issues (Acute) On deep vein thrombosis (DVT) prophylaxis (Acute) Hypokalemia (Acute) MINI (acute kidney injury) (Acute) Severe anemia (Acute) GI (gastrointestinal bleed) (Acute) Medical History Alcohol abuse Asthma GERD (gastroesophageal reflux disease) Hypertension Nausea and vomiting Obesity (BMI 30-39.9) Seasonal allergies Surgical History Hx of colonoscopy Hx of esophagogastroduodenoscopy S/P appendectomy Family History Mother Diabetes Breast cancer Other Adopted Social History Smoking/Tobacco Use Status: Never Smoking risk assessment performed?: Yes Alcohol Intake: current Alcohol Intake frequency: 0-2 drinks per day Alcohol type: wine Counseling given: Yes Counseling provided: provider counseling and reduce to 2 or less/day Drug use: Never Substance use type: does not use Do you feel safe at home: Yes Do you feel safe in your relationship?: Yes Meds Allergies and Home Medications Allergies Allergy/AdvReac Type Severity Reaction Status Date / Time No Known Allergies Allergy Unverified 07/13/22 13:48 Home Medications Medication Instructions Recorded Confirmed Type mometasone-formoterol HFA 200 2 puff inhalation BID 03/22/15 10/11/22 History mcg-5 mcg/actuation aerosol inhaler (Dulera) albuterol sulfate 90 mcg/actuation 2 puff inhalation Q4H PRN 05/11/22 10/11/22 History aerosol inhaler sucralfate 1 gram tablet 1 g PO BID #60 tabs 05/12/22 10/11/22 Rx metoprolol tartrate 25 mg tablet 12.5 mg PO BID 10/11/22 10/11/22 History omeprazole 20 mg capsule,delayed 20 mg PO PRN PRN 10/11/22 10/11/22 History release potassium chloride 20 mEq 20 meq PO DAILY 10/11/22 10/11/22 History tablet,extended release rifaximin 550 mg tablet (Xifaxan) 550 mg PO BID 10/11/22 10/11/22 History spironolactone 25 mg tablet 25 mg PO DAILY 10/11/22 10/11/22 History Exam Const Nutritional Appearance: overweight Orientation: alert and oriented x3 HENMT Head: normal to inspection and normocephalic Eyes General: appearance normal, both eyes and all related structures Neck Neck: normal visual inspection, full ROM and no lymphadenopathy Resp Effort & Inspection: audible wheezes (laryngeal wheezing on exertion) and no cough Auscultation: clear to auscultation bilaterally, no rales and no rhonchi Cardio Rate: regular rate Rhythm: abnormal rhythm regularly irregular Heart Sounds: S1 normal, S2 normal and no murmurs Bruits: no abdominal aortic bruits Pulses: radial pulses present and dorsalis pedis present Other: EKG A-Flutter HR 137 GI Inspection: large pannus and obesity Palpation: soft, no guarding and nontender Auscultation: normal bowel sounds General: No CVA tenderness Back/Spine/Pelvis Back: no CVA tenderness Skin General skin exam: no rashes or lesions noted Neuro General: patient alert and no focal motor deficits Cognition: normal cognition Speech: speech normal Extrem General: edema Laterality: bilateral (lower legs and upper legs) Left lower extremity: edema (bilat. lower ext.) Details: pitting and 4+ Psych Appearance: disheveled Speech and Movement: speech clear Results Labs 10/13/22 05:48 10/13/22 05:48 Labs: Laboratory Results - last 24 hr 10/11/22 10/11/22 10/11/22 11:40 11:40 11:40 WBC 7.29 RBC 1.67 L Hgb 4.8 L* Hct 14.6 L* MCV 87 MCH 28.7 MCHC 32.9 RDW 18.6 H Plt Count 127 L MPV 10.7 Immature Gran % 0.7 Neutrophils % 78.7 Lymphocytes % 10.8 Monocytes % 8.0 Eosinophils % 1.5 Basophils % 0.3 Nucleated RBC % 0.0 Absolute Neutrophils 5.74 Absolute Lymphocytes 0.79 L Absolute Monocytes 0.58 Absolute Eosinophils 0.11 Absolute Basophils 0.02 RBC Morphology See Below Polychromasia Present Hypochromasia 3+ Poikilocytosis 2+ PT INR APTT Sodium 129 L Potassium 2.6 L* Chloride 95 L Carbon Dioxide 18.3 L Anion Gap 15.7 H BUN 40 H Creatinine 3.4 H Est GFR (CKD-EPI 2020) 14.31 Glucose 118 H Calcium 8.4 L Magnesium 1.8 Total Bilirubin 2.5 H AST 28 ALT 8 L Alkaline Phosphatase 60 Ammonia 22 Troponin I < 50 NT-Pro-B Natriuret Pep 5914 H Total Protein 6.0 L Albumin 2.7 L Lipase 83 H COVID-19 Source SARS-CoV-2 (PCR) Patient ABO/Rh Antibody Screen Crossmatch 10/11/22 10/11/22 10/11/22 11:40 12:09 13:41 WBC RBC Hgb Hct MCV MCH MCHC RDW Plt Count MPV Immature Gran % Neutrophils % Lymphocytes % Monocytes % Eosinophils % Basophils % Nucleated RBC % Absolute Neutrophils Absolute Lymphocytes Absolute Monocytes Absolute Eosinophils Absolute Basophils RBC Morphology Polychromasia Hypochromasia Poikilocytosis PT 13.4 H INR 1.3 H APTT 26.6 Sodium Potassium Chloride Carbon Dioxide Anion Gap BUN Creatinine Est GFR (CKD-EPI 2020) Glucose Calcium Magnesium Total Bilirubin AST ALT Alkaline Phosphatase Ammonia Troponin I NT-Pro-B Natriuret Pep Total Protein Albumin Lipase COVID-19 Source Nasal/Nares SARS-CoV-2 (PCR) Negative Patient ABO/Rh O Positive Antibody Screen NEGATIVE Crossmatch See Detail Last Vital Signs Temp 97.7 F 10/11/22 14:36 Pulse 122 H 10/11/22 14:36 Resp 22 10/11/22 14:36 BP 109/45 L 10/11/22 14:36 Pulse Ox 99 10/11/22 14:36 Time Spent Time spent with Patient: >75 minutes Time was spent: preparing to see the patient(eg.review tests), obtaining and/or reviewing separately otained hiistory, ordering medications,tests, procedures, referring, communicating with other health home health care case manager, indepentently interpreting results, counseling the patient and care coordination
[2022-10-11] MEDS: PHYTONADIONE 10 MG in Normal Saline 50 ML 200 MG IVPB (15:08)
[2022-10-11 15:18] LABS: Troponin I < 50 ng/L (<or=60)
--- NOTE | 2022-10-11 16:08 | NUR.NOTE ---
Nursing Note: Pt reported mild headache and mild dizziness at the end of Phytonadione infusion. As pt was recieving blood transfusion at the same time blood was stopped. Hospitalist was called to report symptoms. All vital signs were unchanged, no elevated temperature. Hospitalist oked to resume blood transfusion. Headache persisted but dizziness subsided as pt was being transfered to [facility] floor. Pt also was experiencing SOB and mild wheezing unchanged from prior to receiving blood transfusion. Pt reported that this was chronic and had not used inhaler as per her usual. Potassium had been stopped to hang phytonadione and then restarted. Pt had mild burning at IV site which she reported was tolerable. Due to pt retaining fluid no ns was administered along with potassium. No redness, swelling or discharge observed at site or along vein above IV site.
[2022-10-11] MEDS: Albuterol HFA 8 GM 60 PUFF INH IH (16:19)
[2022-10-11] MEDS: Normal Saline Flush 10 ML SYR IVP ×2 (16:20→17:09)
[2022-10-11] MEDS: HYDROmorphone 2 MG/ML VIAL 0.5 MG IVP (17:07)
--- NOTE | 2022-10-11 17:15 | RT.EKG_ITS ---
APPROVED REPORT Exam: Resting ECG Reason for Exam: Chest Pain/Diff breathing Patient Location: I HR:137 bpm ECG Measurements Heart Rate 137 AXIS VA 151 P 135 QRSd 85 QRS 125 QT 280 T 171 QTc 423 Conclusion Sinus or ectopic atrial tachycardia...P axis (-45,135), rate> 99 Left posterior fascicular block...trm axis(110,210), init force sup Low voltage with right axis deviation...low voltage, RAD
--- NOTE | 2022-10-11 19:38 | DI.VRAD_ITS ---
PROCEDURE INFORMATION: Exam: CT Chest Without Contrast; Diagnostic Exam date and time: 10/11/2022 7:05 PM Age: 67 years old Clinical indication: Abdominal pain; Prior surgery; Surgery date: 6+ months; Surgery type: Appendectomy; Patient HX: Back pain, anemia TECHNIQUE: Imaging protocol: Diagnostic computed tomography of the chest without contrast. Radiation optimization: All CT scans at this facility use at least one of these dose optimization techniques: automated exposure control; mA and/or kV adjustment per patient size (includes targeted exams where dose is matched to clinical indication); or iterative reconstruction. COMPARISON: CR XR PORTABLE CHEST AP 03/05/2023 16:36 FINDINGS: Thyroid: Normal. No significant nodule or enlargement. Trachea: Normal. Lungs: Zone of dense atelectasis in the left lung base. Patchy infiltrates in the right upper lobe and right lower lobe suspicious for pneumonia. Pleural spaces: Small left pleural effusion layered posteriorly. Heart: Normal heart size. Trace pericardial effusion. Coronary arteries: No significant calcification. Esophagus: No esophageal mass or wall thickening. No hiatal hernia. Mediastinal space: Normal. No mass or adenopathy. Lymph nodes: No enlarged mediastinal or axillary lymph nodes. Vasculature: Unremarkable. No aortic aneurysm. Bones/joints: Unremarkable. No acute fracture. Soft tissues: Generalized anasarca with fluid infiltrating throughout subcutaneous soft tissues. Other findings: Visualized upper abdomen is unremarkable. IMPRESSION: 1. Right-sided pulmonary infiltrates suspicious for pneumonia. 2. Small left pleural effusion with adjacent left lower lobe atelectasis. 3. Generalized anasarca. 4. Heart is not significantly enlarged. PROCEDURE INFORMATION: Exam: CT Abdomen And Pelvis Without Contrast Exam date and time: 10/11/2022 7:05 PM Age: 67 years old Clinical indication: Abdominal pain; Prior surgery; Surgery date: 6+ months; Surgery type: Appendectomy; Patient HX: Back pain, anemia TECHNIQUE: Imaging protocol: Computed tomography of the abdomen and pelvis without contrast. Radiation optimization: All CT scans at this facility use at least one of these dose optimization techniques: automated exposure control; mA and/or kV adjustment per patient size (includes targeted exams where dose is matched to clinical indication); or iterative reconstruction. COMPARISON: CR XR PORTABLE CHEST AP 03/05/2023 16:36 FINDINGS: Lungs: Visualized lung bases are clear. Liver: Normal. No mass or intrahepatic biliary ductal dilatation. Gallbladder and bile ducts: Gallbladder mildly distended with at least 1 small calcified stone. High attenuation sludge. Wall appears mildly prominent but this may simply reflect the presence of surrounding fluid. Pancreas: Normal. No mass or ductal dilation. Spleen: Spleen is enlarged measuring 13.1 x 13.8 x 9.7 cm. Adrenal glands: Normal. No mass. Kidneys and ureters: Normal. No hydronephrosis, calculus, cyst or mass. Stomach and bowel: Unremarkable. No significant dilatation or obstruction. No mucosal thickening or visible mass. Appendix: No evidence of appendicitis. Intraperitoneal space: Moderate ascites throughout the abdomen. Vasculature: Unremarkable. No abdominal aortic aneurysm or significant atherosclerosis. Lymph nodes: No enlarged retroperitoneal or mesenteric lymph nodes. Urinary bladder: No mass or wall thickening. Reproductive: Unremarkable as visualized. Bones/joints: Degenerative changes throughout the lumbar spine. No acute fractures. Soft tissues: Generalized anasarca. IMPRESSION: 1. Liver does not appear overtly cirrhotic but there is ascites and splenomegaly. 2. Generalized anasarca. 2. Gallbladder is somewhat distended with stones and sludge. Consider ultrasound evaluation if cholecystitis is a clinical consideration. Dictated and Authenticated by: Jeyson Love MD. Ordering:PAULA Nelson MD
[2022-10-11] MEDS: Budesonide/Formoterol 80/4.5 6.9 GM 60 PUFF INH IH (19:44)
[2022-10-11] MEDS: Sucralfate 1 GM TAB PO (20:45)
[2022-10-11] MEDS: Omeprazole 20 MG CAPCR PO (20:45)
[2022-10-11 21:15] LABS: HCT 19.5 % (36.0-46.0); HGB 6.4 g/dL (11.2-15.7)
[2022-10-11 21:51] LABS: Lab Add On Test DONE
[2022-10-11 22:03] LABS: ETHANOL BLOOD < 3.0 mg/dL (<10)
[2022-10-11 22:22] LABS: Anion Gap 14.8 mmol/L (3-11); BUN 42 mg/dL (7-18); CO2 19.2 mmol/L (21.0-32.0); CREATININE 3.4 mg/dL (0.55-1.02); Calcium 8.4 mg/dL (8.5-10.1); Chloride 96 mmol/L (98-107); Estimated GFR 14.31 (mL/min/1.73m2); Glucose 93 mg/dL (74-106); Sodium 130 mmol/L (136-145)
[2022-10-11 22:24] LABS: Potassium 2.9 mmol/L (3.5-5.1)
[2022-10-12] VITALS (101 sets, daily range): BP systolic 80–113; BP diastolic 39–74; PULSE 64–115; RESP 10–26; TEMP 36.1–37; O2SAT 90–100
[2022-10-12] MEDS: Normal Saline Flush 10 ML SYR IVP ×3 (01:46→19:52)
[2022-10-12 06:04] LABS: Abs Immature Grans 0.19 10^3/uL (0.0-0.06); Absolute Basophil Count 0.04 10^3/uL (0.0-0.2); Absolute Lymphocyte Count 0.93 10^3/uL (1.2-3.4); Absolute Monocyte Count 0.89 10^3/uL (0.1-0.8); Basophils % 0.2; Eosinophils % 0.2; HCT 22.4 % (36.0-46.0); HGB 7.4 g/dL (11.2-15.7); Immature Grans % 0.9; Lymphocytes % 4.4; MCH 28.8 pg (27.0-33.0); MCV 87 fL (80-95); MPV 10.8 fL (8.0-11.0); Monocytes % 4.2; Neutrophils % 90.1; Platelet Count 108 10^3/uL (130-400); RBC 2.57 10^6/uL (3.93-5.22); RDW 17.2 % (11.7-14.6); RDW-SD 54.4 fL; WBC 21.13 10^3/uL (4.4-10.8)
[2022-10-12 06:07] LABS: Absolute Eosinophil Count 0.04 10^3/uL (0.0-0.7); Absolute Neutrophil Count 19.04 10^3/uL (1.2-6.7)
[2022-10-12 06:18] LABS: BUN 43 mg/dL (7-18); CREATININE 3.3 mg/dL (0.55-1.02); Calcium 8.4 mg/dL (8.5-10.1); Chloride 96 mmol/L (98-107); Estimated GFR 14.83 (mL/min/1.73m2); Glucose 136 mg/dL (74-106); Magnesium 1.6 mg/dL (1.8-2.4); Potassium 3.2 mmol/L (3.5-5.1); Sodium 129 mmol/L (136-145)
--- NOTE | 2022-10-12 06:54 | NUR.NOTE ---
4 units of PRB cells transfused without difficulty. pt slept fairly well tonight. low urine output of 175cc's reported to Dr. Tong Ward who visited pt to talk about a colonoscopy. Also reported that pt had converted to sinus rhythm with much better heart rates in the 70's and 80's
--- NOTE | 2022-10-12 07:20 | W.PM.PROGNOT ---
Date of Service Date of service: 10/12/22 Time of Service: 07:21 Assessment and Plan Assessment and plan (1) GI (gastrointestinal bleed): Status: Acute Assessment and plan: Her hemoglobin is improved after transfusion, and her hemodynamics are certainly better, with a return to normal sinus rhythm from her atrial fibrillation. Her creatinine is still little bit elevated. At this point, I think the best plan of action is to continue with resuscitation and plasma expansion, and started bowel prep this evening anticipating upper and lower endoscopy tomorrow. I will put the orders in for [facility] bowel prep starting this evening. I would like to keep her on clear liquids through today. Subjective Subjective Interval history since last seen: Patient is feeling better than she was yesterday. Work of breathing is improved. Back pain from yesterday afternoon improved. Exam Resp Auscultation: wheezes GI Inspection: distended Palpation: soft and no guarding Skin Other: She is edematous, more so on the left than the right upper extremity. She has anasarca. Objective Last Vital Signs Temp 98.6 F 10/12/22 04:15 Pulse 79 10/12/22 05:01 Resp 17 10/12/22 06:15 BP 96/46 L 10/12/22 05:01 Pulse Ox 99 10/12/22 06:15 Laboratory Results - last 24 hr 10/11/22 10/11/22 10/11/22 11:40 11:40 11:40 WBC 7.29 RBC 1.67 L Hgb 4.8 L* Hct 14.6 L* MCV 87 MCH 28.7 MCHC 32.9 RDW 18.6 H Plt Count 127 L MPV 10.7 Immature Gran % 0.7 Neutrophils % 78.7 Lymphocytes % 10.8 Monocytes % 8.0 Eosinophils % 1.5 Basophils % 0.3 Nucleated RBC % 0.0 Absolute Neutrophils 5.74 Absolute Lymphocytes 0.79 L Absolute Monocytes 0.58 Absolute Eosinophils 0.11 Absolute Basophils 0.02 RBC Morphology See Below Polychromasia Present Hypochromasia 3+ Poikilocytosis 2+ PT INR APTT Sodium 129 L Potassium 2.6 L* Chloride 95 L Carbon Dioxide 18.3 L Anion Gap 15.7 H BUN 40 H Creatinine 3.4 H Est GFR (CKD-EPI 2020) 14.31 Glucose 118 H Calcium 8.4 L Magnesium 1.8 Total Bilirubin 2.5 H AST 28 ALT 8 L Alkaline Phosphatase 60 Ammonia 22 Troponin I < 50 NT-Pro-B Natriuret Pep 5914 H Total Protein 6.0 L Albumin 2.7 L Lipase 83 H Ethyl Alcohol COVID-19 Source SARS-CoV-2 (PCR) Add-On Test Request Patient ABO/Rh Antibody Screen Crossmatch 10/11/22 10/11/22 10/11/22 11:40 12:09 13:41 WBC RBC Hgb Hct MCV MCH MCHC RDW Plt Count MPV Immature Gran % Neutrophils % Lymphocytes % Monocytes % Eosinophils % Basophils % Nucleated RBC % Absolute Neutrophils Absolute Lymphocytes Absolute Monocytes Absolute Eosinophils Absolute Basophils RBC Morphology Polychromasia Hypochromasia Poikilocytosis PT 13.4 H INR 1.3 H APTT 26.6 Sodium Potassium Chloride Carbon Dioxide Anion Gap BUN Creatinine Est GFR (CKD-EPI 2020) Glucose Calcium Magnesium Total Bilirubin AST ALT Alkaline Phosphatase Ammonia Troponin I NT-Pro-B Natriuret Pep Total Protein Albumin Lipase Ethyl Alcohol COVID-19 Source Nasal/Nares SARS-CoV-2 (PCR) Negative Add-On Test Request Patient ABO/Rh O Positive Antibody Screen NEGATIVE Crossmatch See Detail 10/11/22 10/11/22 10/11/22 14:53 14:53 19:00 WBC RBC Hgb Cancelled Hct Cancelled MCV MCH MCHC RDW Plt Count MPV Immature Gran % Neutrophils % Lymphocytes % Monocytes % Eosinophils % Basophils % Nucleated RBC % Absolute Neutrophils Absolute Lymphocytes Absolute Monocytes Absolute Eosinophils Absolute Basophils RBC Morphology Polychromasia Hypochromasia Poikilocytosis PT INR APTT Sodium Potassium Chloride Carbon Dioxide Anion Gap BUN Creatinine Est GFR (CKD-EPI 2020) Glucose Calcium Magnesium Total Bilirubin AST ALT Alkaline Phosphatase Ammonia Troponin I < 50 NT-Pro-B Natriuret Pep Total Protein Albumin Lipase Ethyl Alcohol < 3.0 COVID-19 Source SARS-CoV-2 (PCR) Add-On Test Request Patient ABO/Rh Antibody Screen Crossmatch 10/11/22 10/11/22 10/11/22 21:00 21:00 Unknown WBC RBC Hgb 6.4 L* Hct 19.5 L* MCV MCH MCHC RDW Plt Count MPV Immature Gran % Neutrophils % Lymphocytes % Monocytes % Eosinophils % Basophils % Nucleated RBC % Absolute Neutrophils Absolute Lymphocytes Absolute Monocytes Absolute Eosinophils Absolute Basophils RBC Morphology Polychromasia Hypochromasia Poikilocytosis PT INR APTT Sodium 130 L Potassium 2.9 L Chloride 96 L Carbon Dioxide 19.2 L Anion Gap 14.8 H BUN 42 H Creatinine 3.4 H Est GFR (CKD-EPI 2020) 14.31 Glucose 93 Calcium 8.4 L Magnesium Total Bilirubin AST ALT Alkaline Phosphatase Ammonia Troponin I NT-Pro-B Natriuret Pep Total Protein Albumin Lipase Ethyl Alcohol COVID-19 Source SARS-CoV-2 (PCR) Add-On Test Request DONE Patient ABO/Rh Antibody Screen Crossmatch 10/12/22 10/12/22 10/12/22 05:25 05:25 05:25 WBC 21.13 H RBC 2.57 L Hgb Cancelled 7.4 L Hct Cancelled 22.4 L MCV 87 MCH 28.8 MCHC 33.0 RDW 17.2 H Plt Count 108 L MPV 10.8 Immature Gran % 0.9 Neutrophils % 90.1 Lymphocytes % 4.4 Monocytes % 4.2 Eosinophils % 0.2 Basophils % 0.2 Nucleated RBC % 0.0 Absolute Neutrophils 19.04 H Absolute Lymphocytes 0.93 L Absolute Monocytes 0.89 H Absolute Eosinophils 0.04 Absolute Basophils 0.04 RBC Morphology Polychromasia Hypochromasia Poikilocytosis PT INR APTT Sodium 129 L Potassium 3.2 L Chloride 96 L Carbon Dioxide 19.0 L Anion Gap 14.0 H BUN 43 H Creatinine 3.3 H Est GFR (CKD-EPI 2020) 14.83 Glucose 136 H Calcium 8.4 L Magnesium 1.6 L Total Bilirubin AST ALT Alkaline Phosphatase Ammonia Troponin I NT-Pro-B Natriuret Pep Total Protein Albumin Lipase Ethyl Alcohol COVID-19 Source SARS-CoV-2 (PCR) Add-On Test Request Patient ABO/Rh Antibody Screen Crossmatch Time Spent with Patient Time Spent with Patient: <25 minutes Time was spent: preparing to see the patient(eg.review tests) and counseling the patient
[2022-10-12 07:50] LABS: Lab Add On Test DONE
[2022-10-12] MEDS: Potassium Chloride 20 MEQ TABCR PO ×2 (08:08→19:52)
[2022-10-12] MEDS: Metoprolol 12.5 MG TAB PO (08:08)
[2022-10-12] MEDS: Omeprazole 20 MG CAPCR PO ×2 (08:09→19:52)
[2022-10-12] MEDS: Sucralfate 1 GM TAB PO ×2 (08:09→20:55)
[2022-10-12] MEDS: cefTRIAXone 1 GM/50 ML BAG IVPB (08:09)
[2022-10-12] MEDS: Budesonide/Formoterol 80/4.5 6.9 GM 60 PUFF INH IH ×2 (08:09→19:46)
[2022-10-12 08:18] LABS: Procalcitonin 19.4 ng/mL
--- NOTE | 2022-10-12 08:25 | PDOC.CMIN ---
- If Service Date Differs Date of service: 10/12/22 Time of Service: 08:25 Care Management Initial Assess REASON FOR HOSPITALIZATION:: GI Bleed, Anemia PAST MEDICAL HISTORY/PAST SURGICAL HISTORY:: All Active Problems (Updated 10/11/22 @ 18:09 by Isabelle Shell). Discharge planning issues (Acute). On deep vein thrombosis (DVT) prophylaxis (Acute). Hypokalemia (Acute). MINI (acute kidney injury) (Acute). Severe anemia (Acute). GI (gastrointestinal bleed) (Acute). Medical History . Alcohol abuse. Asthma. GERD (gastroesophageal reflux disease). Hypertension. Nausea and vomiting. Obesity (BMI 30-39.9). Seasonal allergies. Surgical History . Hx of colonoscopy. Hx of esophagogastroduodenoscopy. S/P appendectomy PREVIOUS FUNCTIONAL STATUS/SOCIAL/FAMILY SUPPORTS:: Margot lives alone with her 2 kittens in a single family home in [place], [place]. 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 Margot is and has 3 adult children, all of whom live out of state. Margot is independent at baseline and does not receive any commmunity services. CURRENT FUNCTIONAL STATUS:: Margot is lying in bed in the ICU when CM met with her and reports that she is not feeling well enough to participate in this interview. CM obtained info through chart review and discussion with her Primary RN. CM will continue to follow. ADVANCE DIRECTIVES:: none on file Has patient been provided with info about the portal/API?: Yes Did the patient sign up for the portal?: No CODE STATUS:: Full Code INSURANCE COVERAGE / FINANCIAL ISSUES:: BS PRIMARY CARE PHYSICIAN:: Dylon Rey POTENTIAL DISCHARGE NEEDS:: Follow up with PCP and plan of care PATIENT/FAMILY EDUCATION NEEDS:: Review of discharge instructions, limitations, activity, diet, medications, Ask Me Three TRANSPORTATION:: via private vehicle with family PLAN:: Margot is being closely monitored and treated in the ICU and is being followed by [facility]. Anticipate, Margot will discharge home when medically cleared by provider. She will follow up with her community providers and plan of care and transport with family. CM will follow and assess for discharge concerns.
[2022-10-12] MEDS: Normal Saline 500 ML 30 ML IV (08:36)
[2022-10-12] MEDS: MAGNESIUM SULFATE 4 GM/100 ML BAG IVPB (09:59)
[2022-10-12] MEDS: Rifaximin 550 MG TAB PO ×2 (09:59→19:52)
[2022-10-12] MEDS: ALBUMIN HUMAN 25 GM/100 ML BTL IVPB ×2 (10:00→16:07)
[2022-10-12] MEDS: AZITHROMYCIN 500 MG in Normal Saline 250 ML 250 MG IVPB (10:41)
--- NOTE | 2022-10-12 11:37 | PHACLINREV_ITS ---
Pharmacy Admission Review - Admission Clinical Review (Last Reviewed 10/11/22 @ 16:58 by Kranthi Ward MD) Discharge planning issues (Acute) On deep vein thrombosis (DVT) prophylaxis (Acute) Hypokalemia (Acute) MINI (acute kidney injury) (Acute) Severe anemia (Acute) GI (gastrointestinal bleed) (Acute) No Known Allergies Allergy (Unverified 07/13/22 13:48) Resuscitation Status Full Code Height 5 ft 3 in Weight 96.7 kg - Renal Dosing Renal Dosing: BUN 43 mg/dL (7-18) H 10/12/22 05:25 Creatinine 3.3 mg/dL (0.55-1.02) H 10/12/22 05:25 Medications needing adjustments: Reviewed List of meds needing interventions: eCrCl about 18.6 using adjusted body weight, orders ok - Anticoagulation Anticoagulation: Hgb 7.4 g/dL (11.2-15.7) L 10/12/22 05:25 Hgb Cancelled 10/12/22 05:25 Hct 22.4 % (36.0-46.0) L 10/12/22 05:25 Hct Cancelled 10/12/22 05:25 Plt Count 108 10^3/uL (130-400) L 10/12/22 05:25 INR 1.3 (0.9-1.1) H 10/11/22 11:40 Creatinine 3.3 mg/dL (0.55-1.02) H 10/12/22 05:25 DVT Prophylaxis: N/A (chemical ppx not appropriate, SCDs only) Therapeutic Anticoagulation: N/A - Opiate Usage Evaluate Pain Scale/Pains Meds: N/A - Relevant Labs Sodium 129 mmol/L (136-145) L 10/12/22 05:25 Potassium 3.2 mmol/L (3.5-5.1) L 10/12/22 05:25 Chloride 96 mmol/L (98-107) L 10/12/22 05:25 Magnesium 1.6 mg/dL (1.8-2.4) L 10/12/22 05:25 Electrolytes, C-Reactive P, ESR: Reviewed (mag replaced with 4gm IV today, potassium 20 meq PO BID ordered) - DM Control DM Control: Glucose 136 mg/dL (74-106) H 02/08/23 05:25 DM Control: N/A - Cardiac Review Cardiac Review: Troponin I < 50 ng/L (<or=60) 10/11/22 14:53 NT-Pro-B Natriuret Pep 5914 pg/mL (<300) H 10/11/22 11:40 BP, HR, EF%: Reviewed - Qtc Review QTc: Reviewed If Elevated, List meds needing intervention: QTc 346 on admission - IV to PO Switch IV Medications: Reviewed - Home Meds Home Med List reviewed: Reviewed Relevent Home Meds Not ordered & why?: all ordered; for patient and review of ch art with PCP, pt is supposed to be on xifaxin chronically but her insurance would only cover a ten day supply. Her PCP has gotten an approval notification for a 90 day supply but when I called her pharmacy to ask them to run the RX it still was not going through Medication adherence barriers identified?: Patient's insurance is still not covering a 90 day supply of xifaxin despite multiple approval letters -- I would recommend sending a new RX upon discharge to her pharmacy for at least a 30 day supply. It is possible the pharmacy is not billing it correctly according to the date the PA was approved on. - Current meds Current Medication Order Review: Reviewed (Ceftriaxone + Azithromycin d/t patchy infiltrates found in lungs per imaging)
[2022-10-12] MEDS: Acetaminophen 325 MG TAB 650 MG PO (11:46)
[2022-10-12] MEDS: Albuterol HFA 8 GM 60 PUFF INH IH (13:32)
[2022-10-12 14:45] LABS: HCT 23.4 % (36.0-46.0); HGB 7.7 g/dL (11.2-15.7)
--- NOTE | 2022-10-12 14:56 | W.PM.PROGNOT ---
Date of Service Date of service: 10/12/22 Time of Service: 15:34 Assessment and Plan Assessment and plan (1) Severe anemia: Status: Acute Assessment and plan: S/P 4 units pRBCs and 1 unit FFP Hgb improved to 7.7. S/P Vitamin K 2mg IV. Monitoring H/H. Planned upper and lower endoscopy tomorrow. (2) MINI (acute kidney injury): Status: Acute Assessment and plan: Creatinine is 3.4 > 3.4 > 3.3. It was 0.8 in July 2022, 1.5 in September 2022. BNP 5914. Acute Kidney injury:Mostly from re-renal azotemia. Anasarca/significant 3rd spacing. Gave 2 boluses of albumin today. Still very poor urine output. Diuresis is not without risk given her low BP. (3) Hypokalemia: Status: Acute Assessment and plan: We will replace potassium and monitor. (4) GI (gastrointestinal bleed): Status: Acute Assessment and plan: See anemia. Previously treated angiodysplasia of large bowel at [facility]. Likely current source as well. Cannot r/o variceal bleed given her cirrhosis. Upper and lower endoscopy tomorrow. (5) Asthma: Assessment and plan: We will continue Symbicort and PRN albuterol (6) On deep vein thrombosis (DVT) prophylaxis: Status: Acute Assessment and plan: Patient is not a candidate for pharmacological therapy d/t GI bleeding. SCD's. (7) Discharge planning issues: Status: Acute Assessment and plan: Undetermined plan at this time due to patient's acuity (8) Pleural effusion: Status: Acute Assessment and plan: Questionably some pleural thickening. Recommend f/u CT in 1-2 months. (9) Cirrhosis: Status: Acute Assessment and plan: Child-Cain score: Class B. Significant generalized anasarca. Unable to diurese d/t low BP Subjective Subjective Patient reports: feels better and afebrile; denies vomiting Interval history since last seen: Very minimal urine output. Tolerating clear liquids. Maroon colored stool last PM. Exam Narrative Exam Narrative: Pt is more interactive. Appears nontoxic. Const Nutritional Appearance: overweight Orientation: alert and oriented x3 HENMT Head: normal to inspection and normocephalic Eyes General: appearance normal, both eyes and all related structures Sclera: sclerae normal Resp Effort & Inspection: cough (nonproductive) Auscultation: clear to auscultation bilaterally, no rales and no rhonchi Cardio Rate: regular rate Rhythm: regular rhythm Heart Sounds: S1 normal, S2 normal and no murmurs Other: EKG A-Flutter HR 137 GI Inspection: large pannus and obesity Palpation: soft, no guarding and nontender Auscultation: normal bowel sounds General: No CVA tenderness Back/Spine/Pelvis Back: no CVA tenderness Skin General skin exam: no rashes or lesions noted Neuro General: patient alert and no focal motor deficits Cognition: normal cognition Speech: speech normal Extrem General: no calf tenderness and edema Laterality: bilateral (lower legs and upper legs) Left lower extremity: edema (bilat. lower ext.) Details: pitting and 4+ Psych Appearance: disheveled Speech and Movement: speech clear Objective Last Vital Signs Temp 36.2 C L 10/12/22 13:00 Pulse 75 10/12/22 13:05 Resp 16 10/12/22 13:30 BP 97/52 L 10/12/22 13:05 Pulse Ox 99 10/12/22 13:30 Laboratory Results - last 24 hr 10/11/22 10/11/22 10/11/22 12:09 14:53 14:53 WBC RBC Hgb Hct MCV MCH MCHC RDW Plt Count MPV Immature Gran % Neutrophils % Lymphocytes % Monocytes % Eosinophils % Basophils % Nucleated RBC % Absolute Neutrophils Absolute Lymphocytes Absolute Monocytes Absolute Eosinophils Absolute Basophils Sodium Potassium Chloride Carbon Dioxide Anion Gap BUN Creatinine Est GFR (CKD-EPI 2020) Glucose Calcium Magnesium Troponin I < 50 Procalcitonin Ethyl Alcohol < 3.0 Add-On Test Request Patient ABO/Rh O Positive Antibody Screen NEGATIVE Crossmatch See Detail 10/11/22 10/11/22 10/11/22 19:00 21:00 21:00 WBC RBC Hgb Cancelled 6.4 L* Hct Cancelled 19.5 L* MCV MCH MCHC RDW Plt Count MPV Immature Gran % Neutrophils % Lymphocytes % Monocytes % Eosinophils % Basophils % Nucleated RBC % Absolute Neutrophils Absolute Lymphocytes Absolute Monocytes Absolute Eosinophils Absolute Basophils Sodium 130 L Potassium 2.9 L Chloride 96 L Carbon Dioxide 19.2 L Anion Gap 14.8 H BUN 42 H Creatinine 3.4 H Est GFR (CKD-EPI 2020) 14.31 Glucose 93 Calcium 8.4 L Magnesium Troponin I Procalcitonin Ethyl Alcohol Add-On Test Request Patient ABO/Rh Antibody Screen Crossmatch 10/11/22 10/12/22 10/12/22 Unknown 05:25 05:25 WBC RBC Hgb Cancelled Hct Cancelled MCV MCH MCHC RDW Plt Count MPV Immature Gran % Neutrophils % Lymphocytes % Monocytes % Eosinophils % Basophils % Nucleated RBC % Absolute Neutrophils Absolute Lymphocytes Absolute Monocytes Absolute Eosinophils Absolute Basophils Sodium 129 L Potassium 3.2 L Chloride 96 L Carbon Dioxide 19.0 L Anion Gap 14.0 H BUN 43 H Creatinine 3.3 H Est GFR (CKD-EPI 2020) 14.83 Glucose 136 H Calcium 8.4 L Magnesium 1.6 L Troponin I Procalcitonin Ethyl Alcohol Add-On Test Request DONE Patient ABO/Rh Antibody Screen Crossmatch 10/12/22 10/12/22 10/12/22 05:25 05:25 05:25 WBC 21.13 H RBC 2.57 L Hgb 7.4 L Hct 22.4 L MCV 87 MCH 28.8 MCHC 33.0 RDW 17.2 H Plt Count 108 L MPV 10.8 Immature Gran % 0.9 Neutrophils % 90.1 Lymphocytes % 4.4 Monocytes % 4.2 Eosinophils % 0.2 Basophils % 0.2 Nucleated RBC % 0.0 Absolute Neutrophils 19.04 H Absolute Lymphocytes 0.93 L Absolute Monocytes 0.89 H Absolute Eosinophils 0.04 Absolute Basophils 0.04 Sodium Potassium Chloride Carbon Dioxide Anion Gap BUN Creatinine Est GFR (CKD-EPI 2020) Glucose Calcium Magnesium Troponin I Procalcitonin 19.4 Ethyl Alcohol Add-On Test Request DONE Patient ABO/Rh Antibody Screen Crossmatch 10/12/22 14:38 WBC RBC Hgb 7.7 L Hct 23.4 L MCV MCH MCHC RDW Plt Count MPV Immature Gran % Neutrophils % Lymphocytes % Monocytes % Eosinophils % Basophils % Nucleated RBC % Absolute Neutrophils Absolute Lymphocytes Absolute Monocytes Absolute Eosinophils Absolute Basophils Sodium Potassium Chloride Carbon Dioxide Anion Gap BUN Creatinine Est GFR (CKD-EPI 2020) Glucose Calcium Magnesium Troponin I Procalcitonin Ethyl Alcohol Add-On Test Request Patient ABO/Rh Antibody Screen Crossmatch Time Spent with Patient Time Spent with Patient: 35-49 minutes Time was spent: preparing to see the patient(eg.review tests), ordering medications,tests, procedures, referring, communicating with other health direct care counselor and indepentently interpreting results
--- NOTE | 2022-10-12 15:40 | CHAPLAIN ---
Margot was resting in bed when I visited. We remembered meeting during her last admission. Margot said she has been given repeated bad news, each time I think I'm making a little progress. She's in touch with her daughter in [place] who is keeping other family members informed. Margot has three adult children who all live out of state. The last time she was hospitalized, Margot said her daughter came up to stay with her for a while after she was discharged and that was very helpful to her.
[2022-10-12] MEDS: Furosemide 20 MG/2 ML VIAL IVP (16:53)
[2022-10-12 21:11] LABS: HCT 22.7 % (36.0-46.0); HGB 7.3 g/dL (11.2-15.7)
[2022-10-13] VITALS (59 sets, daily range): BP systolic 87–135; BP diastolic 31–78; PULSE 40–136; RESP 12–26; TEMP 36.3–37.2; O2SAT 85–100; BMI 39.8
[2022-10-13] MEDS: Metoprolol 12.5 MG TAB PO (04:10)
[2022-10-13 06:42] LABS: Abs Immature Grans 0.07 10^3/uL (0.0-0.06); Absolute Basophil Count 0.03 10^3/uL (0.0-0.2); Absolute Eosinophil Count 0.17 10^3/uL (0.0-0.7); Absolute Lymphocyte Count 1.23 10^3/uL (1.2-3.4); Absolute Monocyte Count 0.88 10^3/uL (0.1-0.8); Basophils % 0.3; Eosinophils % 1.9; HCT 21.8 % (36.0-46.0); HGB 7.1 g/dL (11.2-15.7); Immature Grans % 0.8; Lymphocytes % 13.5; MCH 28.3 pg (27.0-33.0); MCHC 32.6 % (32.0-36.0); MCV 87 fL (80-95); MPV 10.7 fL (8.0-11.0); Monocytes % 9.7; Neutrophils % 73.8; Platelet Count 103 10^3/uL (130-400); RBC 2.51 10^6/uL (3.93-5.22); RDW 17.5 % (11.7-14.6); RDW-SD 55.8 fL; WBC 9.08 10^3/uL (4.4-10.8)
[2022-10-13 07:01] LABS: ALT 7 U/L (14-59); AST 24 U/L (15-37); Albumin 3.1 g/dL (3.4-5.0); Alkaline Phosphatase 49 U/L (46-116); Anion Gap 14.2 mmol/L (3-11); BUN 45 mg/dL (7-18); Bilirubin, Total 3.7 mg/dL (0.2-1.0); CO2 19.8 mmol/L (21.0-32.0); Calcium 8.3 mg/dL (8.5-10.1); Chloride 97 mmol/L (98-107); Estimated GFR 13.36 (mL/min/1.73m2); Glucose 108 mg/dL (74-106); Magnesium 2.5 mg/dL (1.8-2.4); Sodium 131 mmol/L (136-145)
[2022-10-13 07:06] LABS: CREATININE 3.6 mg/dL (0.55-1.02)
[2022-10-13] MEDS: Budesonide/Formoterol 80/4.5 6.9 GM 60 PUFF INH IH ×2 (07:55→19:54)
[2022-10-13 08:23] LABS: INR 1.3 (0.9-1.1); Prothrombin Time 13.4 sec (9.3-11.0)
[2022-10-13] MEDS: cefTRIAXone 1 GM/50 ML BAG IVPB (09:39)
--- NOTE | 2022-10-13 09:39 | PDOC.CMPRO ---
- If Service Date Differs Date of service: 10/13/22 Time of Service: 09:39 Care Management Progress Note S/O:Margot was dozing when CM came to meet with her and CM chose not to disturb her as she was hoping to nap, per nursing. Efforts were underway to transfer Margot to a tertiary care facility for an EGD and colonoscopy, however the decision was made to perform the procedures at [facility]. She is currently in the OR. Margot has required several transfusions; she has received 5 units of RBCs and 1 unit of FFP with an additional unit available. She remains critically ill with SBPs in the 80s to low 100s. She has an elevated creatinine (3.6) as well as BUN. Margot is also hyponatremic and hypokalemic. She has cirrhosis of the liver and has reportedly begun the process of seeking a liver transplant. A: Margot is a 67 year old woman admitted on 10/11/22 with GI Bleed and anemia P:Margot is being closely monitored and treated in the ICU and is being followed by [facility]. Anticipate, Margot will discharge home when medically cleared by provider. She will follow up with her community providers and plan of care and transport with family. CM will follow and assess for discharge concerns.
[2022-10-13 09:42] LABS: POTASSIUM,URINE RANDOM 12 mmol/L; Sodium, Urine 10 mmol/L
[2022-10-13] MEDS: Rifaximin 550 MG TAB PO (09:43)
[2022-10-13] MEDS: Potassium Chloride Liquid 20 MEQ PKT 40 MEQ PO (09:43)
[2022-10-13] MEDS: Sucralfate 1 GM TAB PO (09:46)
[2022-10-13] MEDS: Omeprazole 20 MG CAPCR PO (09:46)
[2022-10-13] MEDS: AZITHROMYCIN 500 MG in Normal Saline 250 ML 250 MG IVPB (11:00)
[2022-10-13] MEDS: Midodrine 2.5 MG TAB 7.5 MG PO (11:01)
[2022-10-13 12:30] LABS: Bilirubin Negative (Negative); Blood Large (Negative); Clarity Clear (Clear); Glucose Negative (Negative); Ketones Negative (Negative); Leukocyte Esterase Trace (Negative); Nitrite Negative (Negative); Urobilinogen 0.2 EU/dL (Up TO 0.2); pH 5.5 (5-8)
[2022-10-13 12:42] LABS: Bacteria Moderate HPF (Negative); C & S Indicated? Yes; Casts Negative LPF (Negative); Crystals Negative HPF (Negative); Epithelial Cells Few HPF (Negative); Mucus Negative (Negative); RBC >50 HPF (0-2)
[2022-10-13] MEDS: Furosemide 100 MG/10 ML VIAL 160 MG IVP (13:12)
[2022-10-13] MEDS: Normal Saline Flush 10 ML SYR IVP (13:13)
[2022-10-13] MEDS: ALBUMIN HUMAN 25 GM/100 ML BTL IVPB ×4 (13:26→19:05)
--- NOTE | 2022-10-13 14:48 | W.ANESPRE ---
General Info Date of Service Date Performed: 10/13/22 Height: 5 ft 3 in Weight: 102 kg Body Mass Index (BMI): 39.8 Surgical Procedure: Operation Date: 10/13/22 15:20 Proposed Procedure Side Surgeon p Colonoscopy/Gastroscopy Kranthi Ward MD Meds Allergies and Home Medications Allergies Allergy/AdvReac Type Severity Reaction Status Date / Time No Known Allergies Allergy Unverified 07/13/22 13:48 Home Medication Medication Instructions Recorded mometasone-formoterol HFA 200 2 puff inhalation BID 03/22/15 mcg-5 mcg/actuation aerosol inhaler (Dulera) albuterol sulfate 90 mcg/actuation 2 puff inhalation Q4H PRN 05/11/22 aerosol inhaler sucralfate 1 gram tablet 1 g PO BID #60 tabs 05/12/22 metoprolol tartrate 25 mg tablet 12.5 mg PO BID 10/11/22 omeprazole 20 mg capsule,delayed 20 mg PO PRN PRN 10/11/22 release potassium chloride 20 mEq 20 meq PO DAILY 10/11/22 tablet,extended release rifaximin 550 mg tablet (Xifaxan) 550 mg PO BID 10/11/22 spironolactone 25 mg tablet 25 mg PO DAILY 10/11/22 Current Visit Medications: Current Medications Generic Name Dose Route Start Last Admin Trade Name Freq PRN Reason Stop Dose Admin Acetaminophen 650 mg 10/11/22 16:48 10/12/22 11:46 Acetaminophen 325 Mg Tab PO 650 mg Q6H PRN PRN Administration Albuterol Sulfate 2 puff 10/11/22 13:43 10/12/22 13:32 Albuterol Hfa 8 Gm 60 Puff Inh IH 2 puffs Q4H PRN PRN Administration Budesonide/Formoterol Fumarate 2 puff 10/11/22 20:00 10/13/22 07:55 Budesonide/Formoterol 80/4.5 6.9 Gm 60 Puff Inh IH 2 puffs BID KELSY Administration Device 1 each 10/11/22 14:00 Inhaler, Assist Device MC DIRECTED KELSY Dimethicone/Zinc Oxide 0 gm 10/11/22 13:32 Ginger Protect Cream 142 Gm Tube TP PRN PRN Ceftriaxone Sodium/Dextrose 1 gm in 50 mls @ 100 mls/hr 10/12/22 08:00 10/13/22 11:50 Rocephin IVPB Infused Q24H KELSY Infusion Azithromycin 500 mg/ Sodium 250 mls @ 250 mls/hr 10/12/22 10:00 10/13/22 13:24 Chloride IVPB Infused Q24H KESLY Infusion Sodium Chloride 500 mls @ 0 mls/hr 10/12/22 08:01 10/12/22 09:40 Saline 500ml Bag IV 0 mls/hr PRN PRN Infusion As Directed Octreotide Acetate 250 mcg/ 250 mls @ 50 mls/hr 10/13/22 09:45 Sodium Chloride IV INFUSION KELSY Protocol 50 MCG/HR Albumin Human 25 gm in 100 mls @ 200 mls/hr 10/13/22 15:00 Alburx-25 IVPB 10/13/22 15:29 NOW ONE Albumin Human 25 gm in 100 mls @ 200 mls/hr 10/13/22 15:30 Alburx-25 IVPB 10/13/22 15:59 NOW ONE Albumin Human 25 gm in 100 mls @ 200 mls/hr 10/13/22 16:00 Alburx-25 IVPB 10/13/22 16:29 NOW ONE IV Miscellaneous Supplies 1 each 10/11/22 11:30 Iv Access IV DIRECTED KELSY Midodrine 7.5 mg 10/13/22 10:00 10/13/22 11:01 Midodrine 2.5 Mg Tab PO 7.5 mg TID KELSY Administration Omeprazole 20 mg 10/11/22 20:00 10/13/22 09:46 Omeprazole 20 Mg Capcr PO 20 mg BID@0730,2000 KELSY Administration Potassium Chloride 40 meq 10/13/22 08:30 10/13/22 09:43 Potassium Chloride Liquid 20 Meq Pkt PO 40 meq BID KELSY Administration Rifaximin 550 mg 10/12/22 10:00 10/13/22 09:43 Rifaximin 550 Mg Tab PO 550 mg BID KELSY Administration Sodium Chloride 0 ml 10/12/22 08:01 10/13/22 13:13 Normal Saline Flush 10 Ml Syr IVP 10 ml PRN PRN Administration Sucralfate 1 gm 10/12/22 22:00 10/13/22 09:46 Sucralfate 1 Gm Tab PO 1 gm BID@1000,2200 KELSY Administration PFSH Active Problems Active Problems: Problem Status Onset Code Cirrhosis K74.60 Pleural effusion J90 Anasarca R60.1 Discharge planning issues Z02.9 On deep vein thrombosis (DVT) prophylaxis Z79.899 Hypokalemia E87.6 MINI (acute kidney injury) N17.9 Severe anemia D64.9 GI (gastrointestinal bleed) K92.2 Medical History Medical History Alcohol abuse Asthma GERD (gastroesophageal reflux disease) Hypertension Nausea and vomiting Obesity (BMI 30-39.9) Seasonal allergies Surgical History Surgical History Hx of colonoscopy Hx of esophagogastroduodenoscopy S/P appendectomy Tobacco Smoking/Tobacco Use Status: Never Alcohol Alcohol Intake: current Alcohol intake frequency: 0-2 drinks per day Alcohol type: wine Counseling provided: provider counseling and reduce to 2 or less/day Substance Use Substance use: Never Substance use type: does not use Vital Signs and Lab Results Vital Signs Most Recent Vital Signs in EMR: Most Recent Vital Signs Temp Pulse Resp BP Pulse Ox 37.2 C 67 14 110/58 L 98 10/13/22 11:08 10/13/22 11:11 10/13/22 11:11 10/13/22 11:11 10/13/22 11:11 Lab Results 10/13/22 05:48 10/13/22 05:48 Blood Type / Crossmatch: Patient ABO/Rh O Positive 10/11/22 Antibody Screen NEGATIVE 10/11/22 Crossmatch See Detail 10/11/22 Complete Blood Count: White Blood Count 9.08 10^3/uL (4.4-10.8) 10/13/22 05:48 Red Blood Count 2.51 10^6/uL (3.93-5.22) L 10/13/22 05:48 Hemoglobin 7.1 g/dL (11.2-15.7) L 10/13/22 05:48 Hematocrit 21.8 % (36.0-46.0) L 10/13/22 05:48 Platelet Count 103 10^3/uL (130-400) L 10/13/22 05:48 Complete Metabolic Panel: Sodium 131 mmol/L (136-145) L 10/13/22 05:48 Potassium 3.0 mmol/L (3.5-5.1) L 10/13/22 05:48 Chloride 97 mmol/L (98-107) L 10/13/22 05:48 Carbon Dioxide 19.8 mmol/L (21.0-32.0) L 10/13/22 05:48 BUN 45 mg/dL (7-18) H 10/13/22 05:48 Creatinine 3.6 mg/dL (0.55-1.02) H* 10/13/22 05:48 Est GFR (CKD-EPI 2020) 13.36 (mL/min/1.73m2) 10/13/22 05:48 Magnesium 2.5 mg/dL (1.8-2.4) H 10/13/22 05:48 Calcium 8.3 mg/dL (8.5-10.1) L 10/13/22 05:48 Albumin 3.1 g/dL (3.4-5.0) L 10/13/22 05:48 Glucose 108 mg/dL (74-106) H 10/13/22 05:48 Liver Function Panel: Alanine Aminotransferase (ALT/SGPT) 7 U/L (14-59) L 10/13/22 05:48 Aspartate Amino Transf (AST/SGOT) 24 U/L (15-37) 10/13/22 05:48 Coagulation Panel: INR International Normalized Ratio 1.3 (0.9-1.1) H 10/13/22 08:00 Prothrombin Time 13.4 sec (9.3-11.0) H 10/13/22 08:00 Activated Partial Thromboplast Time 26.6 sec (21.5-31.9) 10/11/22 11:40 Cardiac Panel: Troponin I < 50 ng/L (<or=60) 10/11/22 NT-Pro-B Natriuret Pep 5914 pg/mL (<300) H 10/11/22 Arterial Blood Gas: No Data to Display Venous Blood Gas: No Data to Display Pancreas Panel: Lipase 83 U/L (16-77) H 10/11/22 11:40 Thyroid Panel: No Data to Display Infectious Disease: Coronavirus (COVID-19)(PCR) Negative (Negative) 10/11/22 13:41 Coronavirus 2019 Source Nasal/Nares 10/11/22 13:41 Blood Cultures: No Data to Display Toxicology Panel: Ethyl Alcohol Level < 3.0 mg/dL (<10) 10/11/22 14:53 Imaging and Studies Imaging and Studies Study information below may be from another EMR and interpreted by another provider. Please see original notes in EMR for more complete details. EKG Summary: 05/11/22:Conclusion Atrial fibrillation...? atrial activity afib I have reviewed and I agree with the emergency room physician's ECG interpretation. Anesthesia Assessment and Plan Anesthesia History Personal History: No History of Anesthesia Complications Family History: No Family History of Anesthesia Complications Exercise Tolerance Exercise Tolerance: Metabolic Equivalents>4 Pertinent Negatives Pertinent Negatives: No Symptoms of GERD Cardiac & Pulmonary Exam Cardiac Exam: Normal S1/S2 Heart Sounds Pulmonary Exam: Clear Bilateral Breath Sounds Implantable Cardiac Device Does patient have a Pacemaker or an ICD?: No Airway Exam Known Difficult Airway: No Mallampati Class: 2 Mouth Opening: Normal (> 3cm) Thyromental Distance: Less than 3 cm Neck Range of Motion: Full ROM Neck Circumference: Normal Teeth Condition: Normal Dentition ASA Classification ASA Score: ASA 4 Emergency Case?: No NPO Status NPO Status: NPO Clears >2 hours, Solids >8 hours Anesthesia Plan Resuscitation Status: Full Code Anesthesia Technique: General Anesthesia Airway Planned: Natural Airway Monitors Used: Standard Monitors
[2022-10-13] MEDS: Lactated Ringers 1,000 ML 30 ML IV (16:00)
--- NOTE | 2022-10-13 17:31 | W.PM.ENDDOP ---
Date of service: 10/13/22 Time of Service: 17:31 Endoscopy Report DATE OF PROCEDURE: 10/13/22 PRE-OP DIAGNOSIS: Gastrointestinal hemorrhage POST-OP DIAGNOSIS: other (Esophageal varices, portal hypertensive gastropathy, diverticulosis, hemorrhoids) SURGEON: Kranthi Ward ANESTHESIA TYPE: General:No Airway ESTIMATED BLOOD LOSS: 0 PATHOLOGY: none sent COMPLICATIONS: None DISPOSITION: ICU INDICATIONS: Taylor is a 67-year-old woman with Nicolas B alcoholic cirrhosis, and recurrent anemia. She is undergone a colonoscopy in the past that demonstrated angiodysplastic lesions in the ascending colon. These were injected and cauterized. She comes back to the hospital with shortness of breath and is found to have a hemoglobin of 4.8. She was resuscitated until her hemodynamics improved. After a long discussion regarding the significant risks of diagnostic endoscopy, she provided informed consent. PREP: JuanCHIMILTON PROCEDURE START TIME: 16:47 PROCEDURE END TIME: 17:05 FINDINGS: Grade 2 esophageal varices, portal hypertensive gastropathy, grade 1 internal hemorrhoids, diverticulosis PROCEDURE DESCRIPTION: After the initiation of monitored anesthetic care, and with the assistance of a bite block, I advanced a standard gastroscope through the mouth past the hypopharynx and into the esophagus.? Under the direct vision of the scope, I advanced down the esophagus towards the stomach.? There were grade 2 esophageal varices. Great care was taken to traverse the esophagus without inducing any injury to the varices. Once I entered the stomach, I performed a brief inspection, followed by retroflexion towards the gastric cardia.? The majority of the stomach had evidence of portal hypertensive gastropathy, particularly the antrum and peripyloric region.? There were no discrete ulcers. There were no visible vessels. There were no therapeutic targets for intervention. Next, I advanced the scope through the pylorus into the duodenum.? The mucosa was pink and healthy appearing.? There were no abnormalities.? I was able to visualize bile draining into the duodenum through the ampulla Vater. ?There was no evidence of blood anywhere in the duodenum, and I did not see any duodenal ulcers in the first, second or third portions of the duodenum. At that point, the diagnosis seem most consistent with portal hypertensive gastropathy and chronic bleeding, therefore I withdrew the endoscope and desufflated the stomach. After that, we rolled Elizabeth Serrano into the left lateral decubitus position, I began by performing an external anorectal exam.? Perineum and skin were normal, as was the anal verge.? There are internal and external hemorrhoids.? They did not appear to be actively bleeding. Next, I advanced a colonoscope into the rectal vault.? I performed retroflexion.? Again, there were grade 1 internal hemorrhoids..? Using insufflation, I then advanced the colonoscope beyond the rectal folds and into the sigmoid colon before advancing towards the cecum.? The quality of the prep was excellent.? The scope was noted to be in the cecum by identification of the ileocecal valve and appendiceal orifice.? I then began withdrawing the colonoscope using repeated irrigation as necessary for full evaluation of the colonic mucosa. I did not see any discrete evidence of the angiodysplastic lesions previously observed in the ascending colon. She does have diverticulosis in the ascending colon. There were no stigmata of recent bleeding. I also observed diverticula in the descending and sigmoid colons. Once the scope was withdrawn to the level of the rectum, great care was taken to examine portions of the rectal folds.? Finally, the scope was withdrawn and the patient was brought to the same-day surgery recovery unit as the anesthetic wore off. ?The findings and instructions were shared with the patient prior to discharge.
--- NOTE | 2022-10-13 17:48 | W.ANESVAS ---
Central Venous Line Placement Date Performed: 10/13/22 Procedure Time: 16:09 Procedure Location: Operating Room Requesting Provider: Kranthi Ward Standard Monitors Applied: ECG, Blood Pressure, SpO2, ETCO2 and See EMR for corresponding vital signs Pt. Position: Supine Trendelenburg Timeout Performed: Yes Sedation Given (Indicate Dose Given): Versed IV Dose:: 2 mg Patient Mental Status: Sedate with meaningful communication Sterility: Hand Hygiene, Surgical Cap, Surgical Mask, Sterile Gloves, Sterile Drape/Sheet, Sterile Gown, Eye Protection and Chlorhexidine Laterality: Right Insertion Site: Internal Jugular (IJ) Central Line Type: Triple Lumen Catheter Insertion Procedure: 1% Lidocaine to skin and subcutaneous tissue with 25g needle, Vessel accessed with catheter over needle, catheter advanced, Guidewire placed with ease, Dermatotomy (skin gina) made with scalpel, Dilator placed without resistance, Introducer/Catheter placed without resistance, Guidewire removed and Claves placed, blood withdrawn, ports flushed and clamped Dressing: Tegaderm Applied, BioPatch and Sutured in Place Catheter Depth at Skin (cm): 15 Placement Confirmation: Confirmation X-Ray Ordered Ultrasound: Sterile probe cover and gel used Ultrasound Image Saved?: No Number of Attempts (See previous attempts in note section): 2 Procedure Tolerated: No Complications and Patient tolerated well Procedure Outcome: Successful Procedure Comment: skin gina made and bleeding noted. pressure applied, bleeding stopped. line advanced without issue. all ports with venous appearing blood return and capped. Prior to beginning procedure pt. c/o headache and a sore/scratchy throat that was worsening over time. Performed By: Maegan Louis Supervised By: Maldonado Hernandez
--- NOTE | 2022-10-13 17:55 | DI.RAD_ITS ---
Exam(s) XR PORTABLE CHEST AP POST LINE EXAM: XR PORTABLE CHEST AP POST LINE CLINICAL HISTORY: Right IJ Line Placement TECHNIQUE: 2D digital imaging was performed of the chest. One images were obtained. AP views were obtained. COMPARISON: CR XR PORTABLE CHEST AP from 10/11/2022 FINDINGS: MEDIASTINUM: Normal. HEART: Normal. PULMONARY VASCULATURE: Normal. LUNGS: Linear infiltrates are seen in the left lung which may represent atelectasis. No focal consol idating infiltrate is seen. PLEURAL SPACE: There does appear to be some blunting of the left costophrenic angle and a small pleur al effusion should be considered. No right pleural effusion. No pneumothorax. BONE:Within normal limits for the patient's age. OTHER FINDINGS:The tip of the right IJ catheter is in the superior vena cava. IMPRESSION: 1. Tip of the right IJ catheter in good position in the superior vena cava. No pneumothorax. 2. Left lung atelectasis. DATA REPOSITORY: RADIATION DOSE DELIVERED:
--- NOTE | 2022-10-13 18:07 | DI.VRAD_ITS ---
PROCEDURE INFORMATION: Exam: XR Chest Exam date and time: 10/13/2022 5:25 PM Age: 67 years old Clinical indication: Device placement; Other: Ij line placement TECHNIQUE: Imaging protocol: Radiologic exam of the chest. Views: 1 view. COMPARISON: CT CHEST/ABD/PEL WO 10/11/2022 7:05 PM FINDINGS: Tubes, catheters and devices: Right IJ central venous line with tip in the superior vena cava. Lungs: Left lower lung atelectasis. Pleural spaces: Left pleural effusion. Heart/Mediastinum: Unremarkable. No cardiomegaly. Bones/joints: Unremarkable. IMPRESSION: 1. Right IJ central venous line with tip in the superior vena cava. 2. Left pleural effusion with left lung atelectasis. Dictated and Authenticated by: Bright Huff MD. Ordering:CHIQUI Okeefe MD
--- NOTE | 2022-10-13 18:24 | W.PM.DS.N ---
Date of service: 10/13/22 Time of Service: 18:24 DS: Diagnosis Discharge Diagnosis (1) Severe anemia: Status: Acute (2) Portal hypertensive gastropathy: Status: Acute (3) GI (gastrointestinal bleed): Status: Acute (4) Hepatorenal syndrome: Status: Acute (5) Alcoholic cirrhosis: Status: Chronic (6) Hypokalemia: Status: Acute (7) Pharyngitis: Status: Acute (8) Portal hypertension: Status: Acute (9) Esophageal varices: Status: Acute (10) Pleural effusion: Status: Acute (11) Asthma: Discharge Plan Disposition Patient Disposition: Transfer-Acute Inpatient Care Specific Acute Inpt Facility: [facility] Condition: Serious Discharge Details Reason For Visit: GI Bleed;Anemia Admit Date/Time: 10/11/22 13:33 Admit Provider: Ollie Magana Attending Provider: Ollie Magana Primary Care Provider: Dylon Rey [facility] Hospital Course: Ms Palacios is a 67 year old female with PMHx of alcoholic cirrhosis (abstinent since ), referred to but not yet as well as h/o prior GI bleeding due to colonic AVMs, treated at [facility] in 07/2022, h/o asthma and GERD, who presented to [facility] ED on 10/11/22 with chest pain and shortness of breath x several days. She was diffusely edematous. She was tachycardic and tachypneic. Her H/H was 4.8/14.6, and her Cr was 3.4 (baseline 0.9; 1.5 on 09/21/22). She denied blood in stool, but was hemoccult positive and described as liquid brown. She was initially admitted to medical surgical floor but because of her clinical status transferred to the ICU on the same date. She received 3 units pRBCs in transfusion on 10/11, 1 unit on 10/12, and 1 unit today as her hemoglobin this morning was still 7.1. She also received 1 unit of FFP on 10/11/22. She was evaluated by general surgery who planned to do an EGD and colonoscopy on her. She underwent these procedures today while awaiting a bed at [facility]. Her EGD showed grade 2 esophageal varices (not bleeding), portal hypertensive gastropathy (suspected to be the main cause of her blood loss over time). Her Colonoscopy showed grade 1 internal hemorrhoids and diverticulosis of the sigmoid, ascending and descending colon, none that was bleeding. No AVMs/angiodysplasis were seen on this colonoscopy (whereas at [facility] reportedly two colonic AVMS had to be cauterized in 07/26). A R IJ CVL was placed prior to EGD/colonoscopy due to insufficient IV access. The patient was noted to have a low UOP. Documented UOP on hospital day 1 was 300 cc, hospital day 225 cc, and today so far 140 cc. The patient was refusing a goyal catheter until this morning and there is a possibility that some urine output was unmeasured as the patient did urinate some with her stool output from the bowel prep (heme +, no josie blood in stool). She was bolused with albumin and furosemide 20 mg on 10/12 with no significant clinical response. Her urine sodium is 10 mmol/L. Her clinical picture is consistent with hepatorenal syndrome, so she was started on midodrine, albumin, and octreotide. Per [facility] critical care recommendation, she was also given a dose of furosemide 160 mg with UOP of 140 cc documented since midnight today. For this reason, it is felt that the patient would benefit from transfer to a tertiary care facility where nephrology and access to dialysis are available (no nephrology or hemodialysis at our facility.) No beds were available at [facility]. The patient was accepted in transfer to [facility] by Dr Nesbitt, pending bed availability. In recovery post her EGD/Colonoscopy, the patient had reported that even prior to her getting the R IJ CVL and the EGD, she started to suddenly have throat pain. On exam, the patient had mild pharyngitis, but the patient's symptoms were out of proportion to her physical exam. The patient was able to protect her away and swallow water on my exam, but reportedly started to gargle shortly after. What appears to have made this pain/swallowing better is benadryl. The CT of the soft tissues is pending, though it appears that the acute issue has resolved. I suspect that the patient may have had a blood transfusion reaction. A blood transfusion workup was initiated. During this hospitalization, She was periodically in Afib, though I did not find an EKG confirming that, converting back to NSR. She was maintained on her home metoprolol. An EKG is currently pending as the patient appears to have converted into Afib again. For suggestion of PNA on CXR, the patient is on azithromycin and rocephin. She is not requiring oxygen, nor does she have a cough, so clinical suspicion for this pneumonia being real is low. The patient is awaiting a CT of her soft tissues of the neck prior to her transfer to [facility]. [facility] was updated on the latest developments. Total Critical Care Time spent on care for patient as well as coordination of her transfer and compltion of her transfer summary today 120 minutes. For list of her inpatient medications, please see MAR. The list of medications below reflects her outpatient prescriptions. Home Meds and New Rx's Prescriptions: No Action Dulera 8.8 GM HFA aerosol inhaler 2 puff Inhalation BID albuterol sulfate 90 mcg/actuation HFA aerosol inhaler 2 puff INHALATION Q4H PRN sucralfate 1 gram tablet 1 g PO BID Qty: 60 0RF spironolactone 25 mg tablet 25 mg PO DAILY Patient Comments: TAKE ONE TABLET BY MOUTH EVERY MORNING metoprolol tartrate 25 mg tablet 12.5 mg PO BID Patient Comments: TAKE ONE-HALF TABLET BY MOUTH TWICE A DAY Xifaxan 550 mg tablet 550 mg PO BID Patient Comments: TAKE ONE TABLET BY MOUTH TWICE A DAY potassium chloride 20 mEq tablet extended release 20 meq PO DAILY Patient Comments: TAKE ONE TABLET BY MOUTH THREE TIMES A DAY omeprazole 20 mg capsule,delayed release(DR/EC) 20 mg PO PRN PRN Discharge Instructions Additional Instructions: [facility] appointment with GI on 10/25/2022 at 10:15, on floor L4. Activity:: OOB to chair Equipment/Supplies:: child monitor, IV pole Diet:: NPO Discharge Orders Discharge Orders: Discharge Order (Routine); Ordered 10/13/22 Ordered By: Inga Granados DS: Summary Time Spent with Patient providing and/or coordinating discharge services: Greater than 30 minutes Status at Discharge Functional status at discharge: bed bound Overall status at discharge: patient is not back to baseline Mental Status: mental status grossly normal Speech and Movement: speech and movement normal Mood: anxious mood Affect: anxious affect Exam Narrative Exam Narrative: General: Anxious female who is on RA and able to speak in full sentences, but appears to be voluntarily gargling on her secretions HEENT: EOMI, MMM, pharyngeal erythema, patent airway as far as I am able to evaluate with a tongue depressor Heart: mildly tachycardic (110s), irregular rhythm Lungs: CTAB (occasionally heard upper airway wheeze) Abdomen: soft, nontender, nondistended Extremities:anasarca Psych Mental Status: mental status grossly normal Speech and Movement: speech and movement normal Mood: anxious mood Affect: anxious affect DS: Data Vitals/I&O Vitals and I&O: Vital Signs Temperature 37.2 C 10/13/22 13:30 Temperature Source Temporal Artery Scan 10/13/22 13:30 Pulse 103 H 10/13/22 18:02 Pulse Rhythm Regular 10/11/22 16:36 Pulse 105 H 10/13/22 18:02 Respiratory Rate 18 10/13/22 18:02 Respiratory Effort Normal 10/13/22 13:30 Respiratory Depth Normal 10/13/22 13:30 Respiratory Pattern Normal 10/13/22 13:30 Blood Pressure 115/69 10/13/22 18:02 Blood Pressure Mean 79 10/13/22 18:02 Blood Pressure Position Supine 10/13/22 07:45 Pulse Oximetry 94 10/13/22 17:55 Oxygen Delivery Method Room Air 10/13/22 11:08 Oxygen Flow Rate 0 10/13/22 11:08 Pain Level 0 10/13/22 07:45 Comment RN informed of VS 10/11/22 16:40 Intake & Output 10/12/22 10/13/22 10/13/22 23:59 11:59 23:59 Intake Total 1315 / 2787 258.333 / 937.000 678.667 / 937.000 Output Total 950 / 1125 470 / 815 345 / 815 Balance 365 / 1662 -211.667 / 122.000 333.667 / 122.000 Weight 102 kg 102 kg Intake: IV 120 / 562 258.333 / 600.000 341.667 / 600.000 Oral 1195 / 1505 Blood Product 300 / 300 Rbc Leuko Reduced Unit 300 / 300 [id number] Other 37 / 37 Rbc Leuko Reduced Unit 37 / 37 [id number] Output: Urine 50 / 225 20 / 140 120 / 140 Stool 900 / 900 450 / 675 225 / 675 Other: Urine Color Yellow Yellow Urine Appearance Cloudy Clear Clear Urine Odor None Comment mixed with stool, patient verbalised that she voided a little too. Placed catheter for primary RN Lorin Velazquez. Pt only had 20ml of urine out. Sent approximately 8ml for ordered urine sodium/potassium. Updated primary RN catheter emptied upon admission to [place] Stool Occult Blood Positive Positive Stool Size Small Stool Characteristics Liquid Liquid Liquid Brown Data Completed and Pending Completed studies during hospitalization [Text1]: CXR 10/11/22: Findings as above but without obvious acute pulmonary findings. CT chest/abdomen/pelvis: 1. Patchy infiltrate particularly in the right lung suspicious for pneumonia. 2. Small left pleural effusion with subjacent infiltrate which may represent atelectasis or pneumonia. 3. The liver has a nodular contour suggesting hepatic cirrhosis.? There is ascites and splenomegaly suggesting portal hypertension.? Please correlate clinically. 4. Generalized anasarca. 5. Cholelithiasis and gallbladder sludge.? Gallbladder ultrasound may be considered for further evaluation.? CXR 10/13/22: 1. Right IJ central venous line with tip in the superior vena cava. 2. Left pleural effusion with left lung atelectasis. CT soft tissues neck: pending Labs on day of discharge: Labs from last 24 hours 10/13/22 10/13/22 10/13/22 14:00 12:15 12:15 WBC RBC Hgb Hct MCV MCH MCHC RDW Plt Count MPV Immature Gran % Neutrophils % Lymphocytes % Monocytes % Eosinophils % Basophils % Nucleated RBC % Absolute Neutrophils Absolute Lymphocytes Absolute Monocytes Absolute Eosinophils Absolute Basophils PT INR Sodium Potassium Chloride Carbon Dioxide Anion Gap BUN Creatinine Est GFR (CKD-EPI 2020) Glucose Calcium Magnesium Total Bilirubin AST ALT Alkaline Phosphatase Ammonia Pending Total Protein Albumin Urine Color Urine Clarity Urine pH Ur Specific [place] Urine Protein Urine Ketones Urine Blood Urine Nitrite Urine Bilirubin Urine Urobilinogen Ur Leukocyte Esterase Urine RBC Urine WBC Ur Epithelial Cells Urine Crystals Urine Bacteria Urine Casts Urine Mucus Ur Culture Indicated? Ur Random Creatinine Pending Ur Random Sodium Ur Random Potassium Urine Urea Nitrogen Pending Urine Glucose Patient ABO/Rh Antibody Screen Crossmatch 10/13/22 10/13/22 10/13/22 12:00 08:38 08:00 WBC RBC Hgb Hct MCV MCH MCHC RDW Plt Count MPV Immature Gran % Neutrophils % Lymphocytes % Monocytes % Eosinophils % Basophils % Nucleated RBC % Absolute Neutrophils Absolute Lymphocytes Absolute Monocytes Absolute Eosinophils Absolute Basophils PT 13.4 H INR 1.3 H Sodium Potassium Chloride Carbon Dioxide Anion Gap BUN Creatinine Est GFR (CKD-EPI 2020) Glucose Calcium Magnesium Total Bilirubin AST ALT Alkaline Phosphatase Ammonia Total Protein Albumin Urine Color Yellow Urine Clarity Clear Urine pH 5.5 Ur Specific [place] 1.020 Urine Protein >=300 H Urine Ketones Negative Urine Blood Large H Urine Nitrite Negative Urine Bilirubin Negative Urine Urobilinogen 0.2 Ur Leukocyte Esterase Trace H Urine RBC >50 H Urine WBC 5-10 Ur Epithelial Cells Few Urine Crystals Negative Urine Bacteria Moderate Urine Casts Negative Urine Mucus Negative Ur Culture Indicated? Yes Ur Random Creatinine Ur Random Sodium 10 Ur Random Potassium 12 Urine Urea Nitrogen Urine Glucose Negative Patient ABO/Rh Antibody Screen Crossmatch 10/13/22 10/13/22 10/12/22 05:48 05:48 20:50 WBC 9.08 RBC 2.51 L Hgb 7.1 L 7.3 L Hct 21.8 L 22.7 L MCV 87 MCH 28.3 MCHC 32.6 RDW 17.5 H Plt Count 103 L MPV 10.7 Immature Gran % 0.8 Neutrophils % 73.8 Lymphocytes % 13.5 Monocytes % 9.7 Eosinophils % 1.9 Basophils % 0.3 Nucleated RBC % 0.0 Absolute Neutrophils 6.70 Absolute Lymphocytes 1.23 Absolute Monocytes 0.88 H Absolute Eosinophils 0.17 Absolute Basophils 0.03 PT INR Sodium 131 L Potassium 3.0 L Chloride 97 L Carbon Dioxide 19.8 L Anion Gap 14.2 H BUN 45 H Creatinine 3.6 H* Est GFR (CKD-EPI 2020) 13.36 Glucose 108 H Calcium 8.3 L Magnesium 2.5 H Total Bilirubin 3.7 H AST 24 ALT 7 L Alkaline Phosphatase 49 Ammonia Total Protein 6.0 L Albumin 3.1 L Urine Color Urine Clarity Urine pH Ur Specific [place] Urine Protein Urine Ketones Urine Blood Urine Nitrite Urine Bilirubin Urine Urobilinogen Ur Leukocyte Esterase Urine RBC Urine WBC Ur Epithelial Cells Urine Crystals Urine Bacteria Urine Casts Urine Mucus Ur Culture Indicated? Ur Random Creatinine Ur Random Sodium Ur Random Potassium Urine Urea Nitrogen Urine Glucose Patient ABO/Rh Antibody Screen Crossmatch 10/11/22 12:09 WBC RBC Hgb Hct MCV MCH MCHC RDW Plt Count MPV Immature Gran % Neutrophils % Lymphocytes % Monocytes % Eosinophils % Basophils % Nucleated RBC % Absolute Neutrophils Absolute Lymphocytes Absolute Monocytes Absolute Eosinophils Absolute Basophils PT INR Sodium Potassium Chloride Carbon Dioxide Anion Gap BUN Creatinine Est GFR (CKD-EPI 2020) Glucose Calcium Magnesium Total Bilirubin AST ALT Alkaline Phosphatase Ammonia Total Protein Albumin Urine Color Urine Clarity Urine pH Ur Specific [place] Urine Protein Urine Ketones Urine Blood Urine Nitrite Urine Bilirubin Urine Urobilinogen Ur Leukocyte Esterase Urine RBC Urine WBC Ur Epithelial Cells Urine Crystals Urine Bacteria Urine Casts Urine Mucus Ur Culture Indicated? Ur Random Creatinine Ur Random Sodium Ur Random Potassium Urine Urea Nitrogen Urine Glucose Patient ABO/Rh O Positive Antibody Screen NEGATIVE Crossmatch See Detail 10/13/22 12:00 Urine - Reflex from Urine Culture - Pending Preliminary micro results at discharge 10/13/22 12:00 Urine Culture - Pending Urine - Reflex from [facility] All Active Problems (Updated 10/13/22 @ 18:28 by Inga Granados MD) Esophageal varices (Acute) Portal hypertensive gastropathy (Acute) Portal hypertension (Acute) Pharyngitis (Acute) Alcoholic cirrhosis (Chronic) Hepatorenal syndrome (Acute) Cirrhosis (Acute) Pleural effusion (Acute) Anasarca (Acute) Discharge planning issues (Acute) On deep vein thrombosis (DVT) prophylaxis (Acute) Hypokalemia (Acute) MINI (acute kidney injury) (Acute) Severe anemia (Acute) GI (gastrointestinal bleed) (Acute) Medical History Alcohol abuse Asthma GERD (gastroesophageal reflux disease) Hypertension Nausea and vomiting Obesity (BMI 30-39.9) Seasonal allergies Surgical History Hx of colonoscopy Hx of esophagogastroduodenoscopy S/P appendectomy Family History Mother Diabetes Breast cancer Other Adopted Social History Smoking/Tobacco Use Status: Never Smoking risk assessment performed?: Yes Alcohol Intake: current Alcohol Intake frequency: 0-2 drinks per day Alcohol type: wine Counseling given: Yes Counseling provided: provider counseling and reduce to 2 or less/day Drug use: Never Substance use type: does not use Do you feel safe at home: Yes Do you feel safe in your relationship?: Yes Time Spent with Patient Time Spent with Patient: >85 minutes Time was spent: preparing to see the patient(eg.review tests), obtaining and/or reviewing separately otained hiistory, ordering medications,tests, procedures, referring, communicating with other health medical care administrator, indepentently interpreting results, counseling the patient and care coordination
[2022-10-13] MEDS: OCTREOTIDE 250 MCG in Normal Saline 245 ML 50 MCG IV (18:30)
[2022-10-13] MEDS: diphenhydrAMINE 50 MG/ML VIAL 25 MG IVP (18:31)
[2022-10-13 19:01] LABS: HCT 23.9 % (36.0-46.0); HGB 7.9 g/dL (11.2-15.7)
--- NOTE | 2022-10-13 19:02 | W.ANESPOSTOP ---
Postoperative Evaluation Date, Time and Location Date Performed: 10/13/22 Time Performed: 18:02 Patient Location: Intensive Care Unit Vital Signs Most Recent Imported Vital Signs: Most Recent Vital Signs Temp Pulse Resp BP Pulse Ox 37.2 C 103 H 18 115/69 94 10/13/22 13:30 10/13/22 18:02 10/13/22 18:02 10/13/22 18:02 10/13/22 17:55 Pain Score Most Recent Pain Score: Most Recent Pain Score Pain Level [Head] 5 10/12/22 11:45 Pain Level 4 10/13/22 18:41 Assessment Mental Status: Awake (Alert & Oriented to Patient Baseline) Airway and Respiratory Function: Patent airway with normal (patient baseline) respiratory exam Cardiovascular Function: Hemodynamically Stable Hydration Status: Adequately Hydrated Nausea & Vomiting: No Nausea or Vomiting Pain: Pt. Denies Any Pain Peripheral Nerve Block: Patient did not receive a nerve block Postoperative Comments:: Pt. still has sore throat, seems to point to center of throat when asked. Denies difficulty breathing. Oropharynx appears red/irritated.
[2022-10-13 19:13] LABS: Ammonia 33 umol/L (11-32)
--- NOTE | 2022-10-13 19:30 | RT.EKG_ITS ---
APPROVED REPORT Exam: Resting ECG Reason for Exam: Afib Patient Location: I HR:131 bpm ECG Measurements Heart Rate 131 AXIS OK [id number] P [id number] QRSd 90 QRS 148 QT 302 T -26 QTc 446 Conclusion Atrial fibrillation...? atrial activity Right axis deviation...QRS axis ( 91,269) Low voltage, extremity and precordial leads...extremity<0.5mV, precordial<1.0mV
--- NOTE | 2022-10-13 20:10 | DI.CT_ITS ---
Exam(s) CT NECK WO EXAM: CT NECK WO CLINICAL HISTORY: soft tissue; difficulty swallowing post EGD/CVL. TECHNIQUE: Imaging Protocol: Axial computed tomography images with coronal and sagittal reformatted images were created and reviewed. CONTRAST MATERIAL: IV contrast was not administered. COMPARISON: CT CT CHEST/ABD/PEL WO from 10/11/2022 FINDINGS: Examination is limited by significant patient motion artifact. Orbits and orbital soft tissues: Within normal limits. Visualized paranasal sinuses: Within normal limits. Nasopharynx: Within normal limits. Oropharynx: Within normal limits. Hypopharynx: Within normal limits. Larynx: Within normal limits. Retropharyngeal space: There is edema seen in the retropharyngeal space at the level of the hyoid bon e and thyroid cartilage. Parotids/submandibular: The right submandibular gland is not visualized. The parotid and left subma ndibular glands are unremarkable. Thyroid gland: Within normal limits. Lymphadenopathy: There is scattered lymph nodes seen along the level one to level three all measurin g less than 8 mm in short axis diameter which are physiologic in nature. Trachea: Within normal limits. Lung apices: There is a small infiltrate again seen in the right upper lobe. There are small bilate ral pleural effusions. Bones: Within normal limits for the patient's age. Carotids/Jugular: Within normal limits. Soft tissues: There is a right IJ catheter in place. There is edema seen in the soft tissues of th e upper chest. IMPRESSION: 1. Mild retropharyngeal edema. 2. Examination limited by significant patient motion and lack of IV contrast. 3. Right upper lobe small infiltrate and small bilateral pleural effusions. RADIATION DOSE DELIVERED: 1,443.93mGy.cm Total DLP 1,443.93mGy.cm Total DLP DATA REPOSITORY: All CT scans at this facility are submitted to the National Radiology Data Registry (NRDR) Dose Index Registry (DIR) with the [employer] ([employer]). RADIATION OPTIMIZATION: All CT scans at this facility use at least one of these dose optimization te chniques: automated exposure control; mA and/or kV adjustment per patient size (includes targeted exa ms where dose is matched to clinical indication); or iterative reconstruction.
--- NOTE | 2022-10-13 20:55 | DI.VRAD_ITS ---
PROCEDURE INFORMATION: Exam: CT Neck Without Contrast Exam date and time: 10/13/2022 8:02 PM Age: 67 years old Clinical indication: Dysphagia / difficulty swallowing; Patient HX: Soft tissue neck swelling, ij line, difficulty swallowing post egd/cvl TECHNIQUE: Imaging protocol: Computed tomography of the neck without contrast. Radiation optimization: All CT scans at this facility use at least one of these dose optimization techniques: automated exposure control; mA and/or kV adjustment per patient size (includes targeted exams where dose is matched to clinical indication); or iterative reconstruction. COMPARISON: CT CHEST/ABD/PEL WO 10/11/2022 7:05 PM FINDINGS: Limitations: The lack of intravenous contrast limits evaluation of the solid organs. Motion artifact does moderately limit the sensitivity of this examination. Tubes, catheters and devices: A right internal jugular central line is noted in place. Pharynx: No significant tonsillar enlargement. Larynx: Epiglottis is normal. Prevertebral and retropharyngeal spaces: Prominent retropharyngeal edema noted. Salivary glands: A right submandibular gland is not seen, possibly postsurgical or fatty atrophy. Bilateral parotid glands appear unremarkable. Thyroid: No enlarged or calcified nodules. Lymph nodes: No lymphadenopathy. Trachea: Visualized trachea is unremarkable. Lungs: A small region of consolidation is seen in the right upper lobe and patchy consolidation seen in the right lower lobe. Pleural spaces: Small bilateral pleural effusions are partially visualized. Bones/joints: No acute fracture. There is grade 1 anterolisthesis of C2 on C3 and C3 on C4. Vasculature: There is a retropharyngeal course of the right internal carotid artery. Soft tissues: Subcutaneous edema noted predominantly in the upper chest. IMPRESSION: 1. Slightly limited examination due to lack of intravenous contrast. Prominent retropharyngeal space edema noted. 2. Mild subcutaneous edema noted as described. Dictated and Authenticated by: Lisa Bhakta MD. Ordering:LEANNA Xiong MD
[2022-10-14 00:01] VITALS: BP 101/46; PULSE 76; PULSE 80; RESP 21; O2SAT 90
[2022-10-14 00:02] VITALS: PULSE 79; RESP 19; O2SAT 89
--- NOTE | 2022-10-14 00:50 | NUR.NOTE ---
Nursing Note: Report provided to Transport team Shi from [facility]. Patient belongings bag given to team that contained Slippers/Sweater/Underpants/Outer Coat/Sweat pants/Patients purse with Phone, no gas fitter helper. Patient did not have dentures/hearing aids. Eyeglasses were on the patient at time of transfer. No family available at time of transfer.
--- NOTE | 2022-10-14 01:10 | NUR.NOTE ---
Nursing Note: Contacted [facility] and gave report to Nancy on patient.
== END 2022-10-14 00:50 | disposition short-term general hospital (02) | DRG 377 ==
LOC: ER 11:21 → MS 15:41 → ICU 18:07
PROVIDERS: Internal Medicine; Nurse Practitioner Family; Surgery; Admitting Provider Family Medicine; Emergency Provider Nurse Practitioner Family; PCP Family Medicine; Visit Provider Family Medicine
PROC: 0DJ08ZZ Inspection of Upper Intestinal Tract, Via Natural or Artificial Opening Endoscopic (ICD-10-PCS; CPT 43235; principal; 2022-10-13 15:15)
DX: K92.2 Gastrointestinal hemorrhage, unspecified (principal); K76.7 Hepatorenal syndrome; I48.92 Unspecified atrial flutter; N17.9 Acute kidney failure, unspecified; K76.6 Portal hypertension; D64.9 Anemia, unspecified; I85.10 Secondary esophageal varices without bleeding; K70.30 Alcoholic cirrhosis of liver without ascites; E87.6 Hypokalemia; I10 Essential (primary) hypertension; K21.9 Gastro-esophageal reflux disease without esophagitis; F10.10 Alcohol abuse, uncomplicated; J45.909 Unspecified asthma, uncomplicated; E66.9 Obesity, unspecified; Z68.39 Body mass index [BMI] 39.0-39.9, adult; I48.91 Unspecified atrial fibrillation; K31.89 Other diseases of stomach and duodenum; K57.30 Diverticulosis of large intestine without perforation or abscess without bleeding; K64.0 First degree hemorrhoids; T80.89XA Other complications following infusion, transfusion and therapeutic injection, initial encounter; R13.10 Dysphagia, unspecified
CPT/HCPCS: 36569; 43235; 45378; 36415; 36430; 71045; 71250; 80048; 80053; 80076; 83690; 84145; 86850; 86900; 86901; 86920; 87635; 93005; 94640; 96365; 96366; 96375; 99291; 70490; 74176; 80320; 81003; 81015; 82140; 82565; 83735; 83880; 84133; 84300; 84484; 84540; 85014; 85018; 85025; 85610; 85730; 86880; 87086; 93010; 94664; 94760; 99223; 99233; J0456; J0696; J1200; J1940; J1941; J2250; J2354; J2704; J3430; J3475; J3480; J3490; P9016; P9059

== ENCOUNTER 2022-10-25 17:33 | Inpatient (IN) | payer BC, SELFPAY ==
--- NOTE | 2022-10-25 19:54 | W.PM.HP.N ---
Date of service: 10/25/22 Time of Service: 19:54 Assessment and Plan Assessment and plan (1) Cirrhosis: Status: Acute Assessment and plan: Cirrhosis Cirrhosis, complicated by recent GI bleed and pneumonia. Will check baseline LFTs, consider paracentecis for comfort, refer to GI for ongoing care and consideration of transplant. Continue beta jone for known varicies (2) MINI (acute kidney injury): Status: Acute Assessment and plan: Will check baseline Creatinie and monitor urine output (3) Paroxysmal A-fib: Status: Acute Assessment and plan: Continue rate control strategy with Nadolol as is (4) GI (gastrointestinal bleed): Status: Acute Assessment and plan: GI bleed: Monitor Hct, continue PPI, consider capsule endoscopy (5) Asthma: Assessment and plan: Asthma: Continue inhalers as is (6) Advance directive in chart: Status: Acute Assessment and plan: Advance directives indicate Full Code History of Present Illness History of Present Illness Chief Complaint: rehab following hospital stay at [facility] Narrative: 67 yo female with h/o alcoholic cirrhosis. Admitted here 10/11 with GI bleeding and MINI. Received 6 units pRBC. EGD/colo 10/13 of note for non-bleeding varices and diverticulosis w/o source of bleeding. Failed lasix challenge as well as albumin/octrotide.midodrine. At this point was transferred to [facility]; course there of note as follows: GI: paracentecis negative SBP but was nevertheless treated empirically for 7 days with CTX. Did not have further endoscopy regarding source of GI bleed. Did not require further transfusion and remained hemodynamically stable. MINI: Octreotide and midodrine held as well as diuretics. Etiology of MINI felt to be ATN secondary to hypovolemia. Cardiacc: PAF, metoprolol held and then started on nadolol CAP: s/p course CTX/Zithro Asthma: treated with bronchodilators and inhaled steroids She is now transferred back for rehab/deconditioning and ongoing care of above medical issues. At present patient states she simply feels weak and tired but no more specific complaints. Review of Systems Narrative: per HPI PFSH All Active Problems (Updated 10/25/22 @ 20:13 by Efraín Wells MD) Advance directive in chart (Acute) Paroxysmal A-fib (Acute) Esophageal varices (Acute) Portal hypertensive gastropathy (Acute) Portal hypertension (Acute) Pharyngitis (Acute) Alcoholic cirrhosis (Chronic) Hepatorenal syndrome (Acute) Cirrhosis (Acute) Pleural effusion (Acute) Anasarca (Acute) Hypokalemia (Acute) MINI (acute kidney injury) (Acute) Severe anemia (Acute) GI (gastrointestinal bleed) (Acute) Medical History Alcohol abuse Asthma GERD (gastroesophageal reflux disease) Hypertension Nausea and vomiting Obesity (BMI 30-39.9) Seasonal allergies Surgical History Hx of colonoscopy Hx of esophagogastroduodenoscopy S/P appendectomy Family History Mother Diabetes Breast cancer Other Adopted Social History Smoking/Tobacco Use Status: Never Smoking risk assessment performed?: Yes Alcohol Intake: current Alcohol Intake frequency: 0-2 drinks per day Alcohol type: wine Counseling given: Yes Counseling provided: provider counseling and reduce to 2 or less/day Drug use: Never Substance use type: does not use Do you feel safe at home: Yes Do you feel safe in your relationship?: Yes Meds Allergies and Home Medications Allergies Allergy/AdvReac Type Severity Reaction Status Date / Time No Known Allergies Allergy Unverified 07/13/22 13:48 Home Medications Medication Instructions Recorded Confirmed Type mometasone-formoterol HFA 200 2 puff inhalation BID 03/22/15 10/11/22 History mcg-5 mcg/actuation aerosol inhaler (Dulera) albuterol sulfate 90 mcg/actuation 2 puff inhalation Q4H PRN 05/11/22 10/11/22 History aerosol inhaler sucralfate 1 gram tablet 1 g PO BID #60 tabs 05/12/22 10/11/22 Rx metoprolol tartrate 25 mg tablet 12.5 mg PO BID 10/11/22 10/11/22 History omeprazole 20 mg capsule,delayed 20 mg PO PRN PRN 10/11/22 10/11/22 History release potassium chloride 20 mEq 20 meq PO DAILY 10/11/22 10/11/22 History tablet,extended release rifaximin 550 mg tablet (Xifaxan) 550 mg PO BID 10/11/22 10/11/22 History spironolactone 25 mg tablet 25 mg PO DAILY 10/11/22 10/11/22 History Exam Narrative Exam Narrative: 110/52, 65, 36.2, 20, 97% RA. Looks chronically ill. HEENT atraumatic; neck supple; lungs few basilar rales; heart distant but RRR; abdomen non-tense ascites, non-tender; extremities 2-3+ pitting edema; neuro Ox3, lucid, moves all 4s, no asterixis Time Spent Time spent with Patient: 40-54 minutes Time was spent: preparing to see the patient(eg.review tests), obtaining and/or reviewing separately otained hiistory and ordering medications,tests, procedures
[2022-10-25 20:40] VITALS: BP 110/52; PULSE 65; RESP 20; TEMP 36.2; O2SAT 97
[2022-10-25 20:46] VITALS: BP 110/52; PULSE 65; RESP 20; TEMP 36.2; O2SAT 97
[2022-10-26 01:24] VITALS: BP 117/60; PULSE 68; RESP 18; TEMP 36.7; O2SAT 97
[2022-10-26 06:19] LABS: HCT 25.2 % (36.0-46.0); MCH 29.2 pg (27.0-33.0); MCHC 31.3 % (32.0-36.0); MCV 93 fL (80-95); MPV 11.2 fL (8.0-11.0); Platelet Count 122 10^3/uL (130-400); RBC 2.71 10^6/uL (3.93-5.22); RDW-SD 69.4 fL; WBC 8.31 10^3/uL (4.4-10.8)
[2022-10-26 06:29] LABS: BUN 56 mg/dL (7-18); CREATININE 3.5 mg/dL (0.55-1.02); Calcium 9.1 mg/dL (8.5-10.1); Chloride 101 mmol/L (98-107); Estimated GFR 13.82 (mL/min/1.73m2); Glucose 126 mg/dL (74-106); Sodium 138 mmol/L (136-145)
[2022-10-26 06:38] LABS: ALT 7 U/L (14-59); Bilirubin, Total 2.8 mg/dL (0.2-1.0); HGB 7.9 g/dL (11.2-15.7)
[2022-10-26 06:39] LABS: RDW 20.4 % (11.7-14.6)
[2022-10-26 07:15] VITALS: BP 92/50; PULSE 59; RESP 18; TEMP 36.3; O2SAT 98
[2022-10-26] MEDS: Budesonide/Formoterol 80/4.5 6.9 GM 60 PUFF INH IH ×2 (09:23→19:46)
[2022-10-26] MEDS: Normal Saline Flush 10 ML SYR (09:32)
[2022-10-26] MEDS: Rifaximin 550 MG TAB PO ×2 (09:33→19:46)
[2022-10-26] MEDS: Thiamine 100 MG TAB PO (09:33)
[2022-10-26] MEDS: Omeprazole 20 MG CAPCR PO (09:34)
[2022-10-26] MEDS: Sodium Bicarbonate 650 MG TAB PO ×2 (09:34→19:46)
[2022-10-26] MEDS: Sucralfate 1 GM TAB PO ×2 (09:34→19:46)
[2022-10-26] MEDS: Potassium Chloride 20 MEQ TABCR PO ×3 (09:34→19:46)
[2022-10-26] MEDS: Cholecalciferol (Vitamin D3) 1,000 UNIT TAB 2000 UNITS PO (09:35)
[2022-10-26] MEDS: Nadolol 40 MG TAB 20 MG PO (09:35)
--- NOTE | 2022-10-26 09:35 | INITIAL_ITS ---
- If Service Date Differs Date of service: 10/26/22 Time of Service: 09:35 Care Management Initial Assess REASON FOR HOSPITALIZATION:: Cirrhosis, MINI, Paroxymal Afib, GI Bleed PAST MEDICAL HISTORY/PAST SURGICAL HISTORY:: All Active Problems (Updated 10/25/22 @ 20:13 by Efraín Wells MD). Advance directive in chart (Acute). Paroxysmal A-fib (Acute). Esophageal varices (Acute). Portal hypertensive gastropathy (Acute). Portal hypertension (Acute). Pharyngitis (Acute). Alcoholic cirrhosis (Chronic). Hepatorenal syndrome (Acute). Cirrhosis (Acute). Pleural effusion (Acute). Anasarca (Acute). Hypokalemia (Acute). MINI (acute kidney injury) (Acute). Severe anemia (Acute). GI (gastrointestinal bleed) (Acute). Medical History . Alcohol abuse. Asthma. GERD (gastroesophageal reflux disease). Hypertension. Nausea and vomiting. Obesity (BMI 30-39.9). Seasonal allergies. Surgical History . Hx of colonoscopy. Hx of esophagogastroduodenoscopy. S/P appendectomy PREVIOUS FUNCTIONAL STATUS/SOCIAL/FAMILY SUPPORTS:: Margot transferred back to [facility] from [facility]. She lives alone with her 2 kittens in a single family home in [place], [place] 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 Margot is and has 3 adult children, all of whom live out of state. Prior to this extended hospitalization, Margot was independent with her ADL's at baseline. CURRENT FUNCTIONAL STATUS:: Margot is sitting in her chair when CM met with her. She is pleasant and easily engages in conversation. Per pt, the edema in her legs has been limiting for awhile to the point where she hasn't been able to drive. She identifies her neighbors Bill and Diana are being her primary supports. ADVANCE DIRECTIVES:: none on file Has patient been provided with info about the portal/API?: Yes Did the patient sign up for the portal?: No CODE STATUS:: Full Code (COLST on File: Full Code) INSURANCE COVERAGE / FINANCIAL ISSUES:: BC/BS Federal CURRENT HOME/COMMUNITY SERVICES/EQUIPMENT:: None PRIMARY CARE PHYSICIAN:: Dylon Rey POTENTIAL DISCHARGE NEEDS:: SNF for STR PATIENT/FAMILY EDUCATION NEEDS:: Review of discharge instructions, limitations, activity, diet, medications, Ask Me Three TRANSPORTATION:: Dependent on dispo PLAN:: Margot transferred back to [facility] from [facility]. At this time she requires inpatient hospitalization for close monitoring, medical treatment and PT. Anticipate, she will discharge to SNF for STR when medically ready. Referral to [facility] is sent, more referral's will go out tomorrow when more documentation is available.
[2022-10-26] MEDS: POTASSIUM CHLORIDE 20 MEQ/100 ML BAG 50 MEQ IVPB (09:46)
[2022-10-26] MEDS: Normal Saline 500 ML 30 ML IV (09:50)
[2022-10-26] MEDS: Normal Saline Flush 10 ML SYR IVP (09:50)
[2022-10-26] MEDS: Hydrocortisone 1% CR 30 GM TUBE TP ×2 (14:31→19:46)
[2022-10-26 15:25] VITALS: BP 98/61; PULSE 61; RESP 16; TEMP 36.6; O2SAT 99
[2022-10-26 16:24] LABS: INR 1.5 (0.9-1.1); Prothrombin Time 15.3 sec (9.3-11.0)
--- NOTE | 2022-10-26 18:26 | W.PM.PROGNOT ---
Date of Service Date of service: 10/26/22 Time of Service: 18:26 Assessment and Plan Assessment and plan (1) Cirrhosis: Status: Acute Assessment and plan: Cirrhosis Cirrhosis, complicated by recent GI bleed and pneumonia. She had a GI for ongoing care and consideration of transplant at [facility] today; reschedule. Continue beta jone for known varicies Rafiximin initiated at [facility]. (2) MINI (acute kidney injury): Status: Acute Assessment and plan: Creatinine now 3.5 Monitor. (3) Paroxysmal A-fib: Status: Acute Assessment and plan: Continue rate control strategy with Nadolol (4) GI (gastrointestinal bleed): Status: Acute Assessment and plan: GI bleed: Monitor Hct, continue PPI, consider capsule endoscopy if recurs. (5) Asthma: Assessment and plan: Asthma: Continue inhalers. No exacerbation. (6) Advance directive in chart: Status: Acute Assessment and plan: Advance directives indicate Full Code Subjective Subjective Patient reports: afebrile; denies diarrhea, blood in stool, nausea, vomiting or shortness of breath Interval history since last seen: c/o dry, itchy legs below the knees. Exam Narrative Exam Narrative: Gen: Looks chronically ill but nontoxic. HEENT atraumatic, sclera clear Neck supple Lungs clear anteriorly. Nonlabored breathing. Heart RRR Abdomen non-tense ascites, non-tender Extremities 2-3+ pitting edema. No calf tenderness. Neuro Ox3, lucid, moves all 4s, no asterixis Objective Last Vital Signs Temp 36.6 C 10/26/22 15:25 Pulse 61 10/26/22 15:25 Resp 16 10/26/22 15:25 BP 98/61 L 10/26/22 15:25 Pulse Ox 99 10/26/22 15:25 Laboratory Results - last 24 hr 10/26/22 10/26/22 10/26/22 05:42 05:42 05:42 WBC 8.31 RBC 2.71 L Hgb 7.9 L Hct 25.2 L MCV 93 MCH 29.2 MCHC 31.3 L RDW 20.4 H Plt Count 122 L MPV 11.2 H PT INR Sodium 138 Potassium 3.0 L Chloride 101 Carbon Dioxide 26.0 Anion Gap 11.0 BUN 56 H Creatinine 3.5 H Est GFR (CKD-EPI 2020) 13.82 Glucose 126 H Calcium 9.1 Total Bilirubin 2.8 H ALT 7 L 10/26/22 05:42 WBC RBC Hgb Hct MCV MCH MCHC RDW Plt Count MPV PT 15.3 H INR 1.5 H Sodium Potassium Chloride Carbon Dioxide Anion Gap BUN Creatinine Est GFR (CKD-EPI 2020) Glucose Calcium Total Bilirubin ALT Time Spent with Patient Time Spent with Patient: 25-34 minutes Time was spent: preparing to see the patient(eg.review tests), ordering medications,tests, procedures and indepentently interpreting results
[2022-10-27 07:44] VITALS: BP 94/63; PULSE 51; RESP 16; TEMP 36.8; O2SAT 96
[2022-10-27 07:54] LABS: ALT 6 U/L (14-59); AST 18 U/L (15-37); Albumin 3.4 g/dL (3.4-5.0); Alkaline Phosphatase 64 U/L (46-116); Anion Gap 9.2 mmol/L (3-11); BUN 57 mg/dL (7-18); CO2 26.8 mmol/L (21.0-32.0); Chloride 102 mmol/L (98-107); Estimated GFR 13.36 (mL/min/1.73m2); Glucose 122 mg/dL (74-106); Potassium 3.5 mmol/L (3.5-5.1); Sodium 138 mmol/L (136-145); Total Protein 6.1 g/dL (6.4-8.2)
[2022-10-27 08:07] LABS: CREATININE 3.6 mg/dL (0.55-1.02)
[2022-10-27] MEDS: Sucralfate 1 GM TAB PO ×2 (09:05→21:09)
[2022-10-27] MEDS: Nadolol 40 MG TAB 20 MG PO (09:05)
[2022-10-27] MEDS: Potassium Chloride 20 MEQ TABCR PO ×3 (09:05→21:09)
[2022-10-27] MEDS: Omeprazole 20 MG CAPCR PO (09:05)
[2022-10-27] MEDS: Cholecalciferol (Vitamin D3) 1,000 UNIT TAB 2000 UNITS PO (09:05)
[2022-10-27] MEDS: Sodium Bicarbonate 650 MG TAB PO ×2 (09:05→21:09)
[2022-10-27] MEDS: Thiamine 100 MG TAB PO (09:05)
[2022-10-27] MEDS: Rifaximin 550 MG TAB PO ×2 (09:05→21:09)
--- NOTE | 2022-10-27 09:06 | CMPROGNOTE_ITS ---
- If Service Date Differs Date of service: 10/27/22 Time of Service: 09:06 Care Management Progress Note S/O: Margot is lying in bed when CM met with her. She is tired, but pleasant and easy to engage in conversation. She is working with PT and plans to discharge to SNF for short term rehab before going back home. SNF referrals are pending. CM will continue to follow. A:67 year old female admitted to [facility] on 10/25/22 for Cirrhosis, MINI, Paroxymal Afib, GI Bleed P: Margot transferred back to [facility] from [facility]. At this time she requires inpatient hospitalization for close monitoring, medical treatment and PT. Anticipate, she will discharge to SNF for STR when medically ready. Referral to [facility] is sent, more referral's will go out tomorrow when more documentation is available.
[2022-10-27] MEDS: Budesonide/Formoterol 80/4.5 6.9 GM 60 PUFF INH IH ×2 (09:18→21:07)
--- NOTE | 2022-10-27 09:48 | PT.INIE ---
PT Notes Visit Reasons: Blood loss anemia; Cirrhosis, MINI Physical Therapy Inpatient Initial Evaluation Date: 10/27/22 Referring Doctor: Ollie Magana MD PT Orders: PT CONSULT: Eval and treat Precautions: Fall. Standard. Patient Profile/Admitting Diagnosis: Margot is 67 yo female that was transferred to [facility] on 10/25/22 from [facility] for ongoing medical management, PT, and eventual transfer to SNF. She reports increasing fluid retention and swelling that has limited her ability to perform ADLs over the last month. History of cirrhosis, GI bleed, pneumonia, and acute kidney injury. Patient reports independent at baseline, but has hard time now getting up from chair and ascending stairs. PMHX: See EMR Social History/Home Situation: Lives alone in 2 level home, primary bedroom upstairs, 6 BASIL, no AD use, totally independent Equipment Owned/DME: None Subjective: Cleared by nursing to see patient and patient is agreeable to PT. Patient is sitting up in chair at time of consult. Objective: General Observation: Tight swelling in bilateral legs, loose swelling in left UE Mental Status: A&O x3 Pain: Left hand ROM: Right Upper Extremity: Shoulder Flexion WFL. Shoulder abduction WFL. Elbow flexion WFL. Wrist flexion WFL. Opening and closing of hand WFL. Left Upper Extremity: Shoulder Flexion WFL. Shoulder abduction WFL. Elbow flexion WFL. Wrist flexion WFL. Opening and closing of hand WFL. Right Lower Extremity: Hip flexion mild impairment. Hip abduction WFL. Knee flexion mild impairment. Ankle dorsiflexion WFL. Ankle plantarflexion WFL. Left Lower Extremity: Hip flexion mild impairment. Hip abduction WFL. Knee flexion mild impairment. Ankle dorsiflexion WFL. Ankle plantarflexion WFL. Strength: Right Upper Extremity: Shoulder flexors 4/5. Shoulder abductors 4/5. Elbow flexors 5/5. Elbow extensors 4/5. Automotive Warranty Administrator strong. Left Upper Extremity: Shoulder flexors 4/5. Shoulder abductors 4/5. Elbow flexors 5/5. Elbow extensors 4/5. Automotive Warranty Administrator strong. Right Lower Extremity: Hip flexors 5/5. Knee flexors 5/5. Knee extensors 5/5. Ankle dorsiflexors 5/5. Ankle plantarflexors 4/5. Left Lower Extremity: Hip flexors 5/5. Knee flexors 5/5. Knee extensors 5/5. Ankle dorsiflexors 5/5. Ankle plantarflexors 4/5. Sensation: Intact as to pain and pressure on bilateral lower extremities. Reports feet feel weird from swelling. Bed Mobility/Transfers: Rolling: Not assessed Supine to sit: Not assessed (reports difficult) Sit to supine: Not assessed (reports difficult) Sit to stand: 1 person min A Stand to sit: Poor control Gait: Ambulated 15ft in room with FWW, SBA Stairs: Not assessed Balance: Static Sitting: Normal Dynamic Sitting: Normal Static Standing: Normal Dynamic Standing: Good Special Tests: Mobility Limitations Standardized Measure [facility] AM-PAC 6 clicks Basic Mobility Inpatient Short Form: Raw Score: 12 CMS Score: 68% Informed Consent/Education: Patient instructed in purpose of PT consult and plan of care. Assessment: Patient presents with clinical signs and symptoms consistent with current/admitting diagnoses that have resulted to mobility limitations, gait instability, generalized weakness, and impairment of motor control as demonstrated by the following impairment level findings: 1. Decreased strength to upper extremity major muscle groups 2. Impaired activity tolerance 3. Limitation of joint range of motion in lower extremity due to swelling Impairments are contributing to the following functional limitations: 1. Increased dependence with bed mobility skills 2. Increased dependence with transfers 3. Inability to safely ambulate without assistive device and physical assistance 4. Increase completion time for mobility ADL performance 5. Increased fall risk 6. Inability to negotiate steps alone safely Patient is assessed as a Low complexity based on the following: History: 67 year old female with impairment level findings, functional limitations, and past medical history as indicated above Examination: Demonstrable impairment in strength, balance, and mobility level with underlying impairments and functional limitations as documented above Presentation: Stable Decision Making: Low complexity Goals: Goals x1 week 1. Supine-Sit: independent 2. Sit-Supine: independent 3. Sit-Stand: independent 4. Stand-Sit: independent 5. Bed-Chair: independent 6. Chair-Bed: independent 7. Independent gait on level surface with use of least restrictive device for at least 300 feet without report of pain nor dyspnea 8. Good static and dynamic standing balance/tolerance 9. Independent with home exercise program 10. Independent stair negotiation while holding onto bilateral rails for at least 10 steps without report of pain nor dyspnea Plan of Care/Treatment Plan: 1-2x/day, 7 days/week x1 week. Plan of care has been reviewed with the EXECUTIVE ASSISTANT TO GENERAL COUNSEL providing the service under Physical Therapy direction. Initiate Physical Therapy intervention for strengthening, bed mobility, transfers, gait, stairs, balance training, and use of assistive device. Discharge Plan DISCHARGE RECOMMENDATIONS: SNF for continued rehabilitation TREATMENT CODE/TIME: 9:24-9:45 (21 minutes), [id number] Thank you for the opportunity to participate in the care of this patient. Kamini Villeda, PT, DPT, OCS [facility] [place], [place]
--- NOTE | 2022-10-27 13:52 | PT.INTREAT ---
Date of service: 10/27/22 Time of Service: 13:30 PT Notes Visit Reasons: Blood loss anemia; Cirrhosis, MINI Inpatient Physical Therapy Treatment Note [facility] Date: 10/27/2020 PRECAUTIONS: Activity as tolerated SUBJECTIVE: Margot is pleasant and agreeable to participating in PT. She reports that her IV site is bothering her (reported to charge nurse). She reports that she struggles with [id number]-pwlih transfers, and has not had much of an appetite. OBJECTIVE: PAIN: No c/o pain BED MOBILITY/TRANSFERS Sit-stand: Min A Stand-sit: SBA GAIT Assistive Device: FWW Weight bearing: Full Assist: SBA Distance: 100' Deviation: Slow pacing, SOB ASSESSMENT: Patient tolerated session without complaint. She tolerated a progression in gait distance with FWW support and SBA, although with SOB. PLAN: Continue with global strengthening and gait training for improved activity tolerance and mobility. TREATMENT CODE/TIME: 20 minutes; 26998 (13:30)
[2022-10-27] MEDS: Hydrocortisone 1% CR 30 GM TUBE TP ×2 (15:04→21:08)
--- NOTE | 2022-10-27 15:35 | W.PM.PROGNOT ---
Date of Service Date of service: 10/27/22 Time of Service: 15:35 Assessment and Plan Assessment and plan (1) Cirrhosis: Status: Chronic Assessment and plan: Cirrhosis Cirrhosis, complicated by recent GI bleed and pneumonia. She had an appt at [facility] that has to be tl because she is here in the hospital - this was to discuss liver transplant. Continue beta jone for known varicies Rafiximin initiated at [facility]. (2) MINI (acute kidney injury): Status: Chronic Assessment and plan: Creatinine now 3.6 Monitor. (3) Paroxysmal A-fib: Status: Chronic Assessment and plan: Continue rate control strategy with Nadolol (4) GI (gastrointestinal bleed): Status: Resolved Assessment and plan: GI bleed: Monitor Hct, continue PPI, consider capsule endoscopy if recurs. H/H 7.9 & 25 - stable for her (5) Asthma: Assessment and plan: Asthma: Continue inhalers. No exacerbation. (6) Advance directive in chart: Status: Deleted Assessment and plan: Advance directives indicate Full Code discussed with Dr Magana Subjective Subjective Patient reports: no new complaints, pain is less, voiding w/o difficulty, bowel movement and afebrile; denies diarrhea or vomiting Interval history since last seen: Awake, alert, pleasant. Exam Narrative Exam Narrative: Gen: Looks chronically ill but nontoxic. HEENT atraumatic, sclera clear Neck supple Lungs clear anteriorly. Nonlabored breathing. Heart RRR Abdomen non-tense ascites, non-tender Extremities 2+ pitting edema. No calf tenderness. Neuro Ox3, lucid, moves all 4s, Objective Last Vital Signs Temp 36.8 C 10/27/22 07:44 Pulse 51 L 10/27/22 07:44 Resp 16 10/27/22 07:44 BP 94/63 L 10/27/22 07:44 Pulse Ox 96 10/27/22 07:44 Laboratory Results - last 24 hr 10/26/22 10/27/22 05:42 07:10 PT 15.3 H INR 1.5 H Sodium 138 Potassium 3.5 Chloride 102 Carbon Dioxide 26.8 Anion Gap 9.2 BUN 57 H Creatinine 3.6 H* Est GFR (CKD-EPI 2020) 13.36 Glucose 122 H Calcium 9.0 Total Bilirubin 3.0 H AST 18 ALT 6 L Alkaline Phosphatase 64 Total Protein 6.1 L Albumin 3.4 Time Spent with Patient Time Spent with Patient: 35-49 minutes Time was spent: preparing to see the patient(eg.review tests), obtaining and/or reviewing separately otained hiistory, ordering medications,tests, procedures, referring, communicating with other health laboratory animal care veterinarian, indepentently interpreting results, counseling the patient and care coordination
--- NOTE | 2022-10-27 16:11 | CHAPLAIN ---
Margot was up in the chair when I visited. She was cold and asked for another heated blanket, which I got for her. Her children live at a distance and she's in touch with them by phone. Friends and neighbors are in touch by text and are taking care of her home while she's here. I explained my role and offered support.
[2022-10-27 19:18] LABS: Source Nasal/Nares
[2022-10-27 19:53] LABS: COVID-19 PCR Negative (Negative)
[2022-10-27 23:30] VITALS: BP 91/53; PULSE 60; RESP 16; TEMP 36.6; O2SAT 94
[2022-10-28 07:01] LABS: Abs Immature Grans 0.04 10^3/uL (0.0-0.06); Absolute Basophil Count 0.04 10^3/uL (0.0-0.2); Absolute Eosinophil Count 0.23 10^3/uL (0.0-0.7); Absolute Lymphocyte Count 1.02 10^3/uL (1.2-3.4); Absolute Monocyte Count 0.82 10^3/uL (0.1-0.8); Absolute Neutrophil Count 5.33 10^3/uL (1.2-6.7); Basophils % 0.5; Eosinophils % 3.1; HCT 25.3 % (36.0-46.0); HGB 7.8 g/dL (11.2-15.7); Immature Grans % 0.5; Lymphocytes % 13.6; MCH 29.1 pg (27.0-33.0); MCHC 30.8 % (32.0-36.0); MCV 94 fL (80-95); Neutrophils % 71.3; Platelet Count 143 10^3/uL (130-400); RBC 2.68 10^6/uL (3.93-5.22); RDW 20.7 % (11.7-14.6); RDW-SD 70.8 fL; WBC 7.48 10^3/uL (4.4-10.8)
[2022-10-28 07:20] VITALS: BP 106/60; PULSE 61; RESP 16; TEMP 36.4; O2SAT 96
[2022-10-28 07:20] LABS: Anisocytosis 2+; Diff Comment RBC Morph Reviewed; Hypochromasia 1+
[2022-10-28 07:25] LABS: Anion Gap 8.8 mmol/L (3-11); BUN 55 mg/dL (7-18); CO2 26.2 mmol/L (21.0-32.0); Calcium 8.8 mg/dL (8.5-10.1); Chloride 100 mmol/L (98-107); Estimated GFR 13.36 (mL/min/1.73m2); Glucose 122 mg/dL (74-106); Magnesium 1.5 mg/dL (1.8-2.4); Potassium 3.6 mmol/L (3.5-5.1); Sodium 135 mmol/L (136-145)
[2022-10-28 07:31] LABS: CREATININE 3.6 mg/dL (0.55-1.02)
[2022-10-28] MEDS: Nadolol 40 MG TAB 20 MG PO (07:59)
[2022-10-28] MEDS: Sucralfate 1 GM TAB PO (08:00)
[2022-10-28] MEDS: Thiamine 100 MG TAB PO (08:00)
[2022-10-28] MEDS: Omeprazole 20 MG CAPCR PO (08:00)
[2022-10-28] MEDS: Rifaximin 550 MG TAB PO (08:00)
[2022-10-28] MEDS: Cholecalciferol (Vitamin D3) 1,000 UNIT TAB 2000 UNITS PO (08:00)
[2022-10-28] MEDS: Sodium Bicarbonate 650 MG TAB PO (08:00)
[2022-10-28] MEDS: Potassium Chloride 20 MEQ TABCR PO (08:00)
[2022-10-28] MEDS: Hydrocortisone 1% CR 30 GM TUBE TP (08:01)
[2022-10-28] MEDS: Budesonide/Formoterol 80/4.5 6.9 GM 60 PUFF INH IH (08:42)
--- NOTE | 2022-10-28 11:36 | PT.INTREAT ---
Date of service: 10/28/22 Time of Service: 11:30 PT Notes Visit Reasons: Blood loss anemia; Cirrhosis, MINI Inpatient Physical Therapy Treatment Note [facility] Date: 10/28/2020 PRECAUTIONS: Activity as tolerated SUBJECTIVE: Margot is pleasant and agreeable to participating in PT. She reports that she is very tired today and struggling to stay awake. She also indicates that she is somewhat disappointed because she thought she was discharging to SNF-level rehab today, although that may not happen until the beginning of next week. OBJECTIVE: PAIN: No c/o pain BED MOBILITY/TRANSFERS Sit-stand: Min A Stand-sit: SBA GAIT Assistive Device: FWW Weight bearing: Full Assist: SBA Distance: 100' Deviation: Slow pacing, several standing rests due to SOB TOILETING: Patient toileted with assist ASSESSMENT: Patient tolerated session with complaint of increased SOB with gait training. She tolerated a progression in gait distance with FWW support and SBA, although with SOB. PLAN: Patient to discharge to SNF-level rehab later today, per provider. TREATMENT CODE/TIME: 15 minutes; 20223 (11:30)
--- NOTE | 2022-10-28 14:26 | DSE_ITS ---
Date of service: 10/28/22 Time of Service: 14:31 DS: Diagnosis Discharge Diagnosis (1) Cirrhosis: Status: Chronic Asessment and Plan: Chronic - patient will reschedule appointment with [facility] Hepatology (2) MINI (acute kidney injury): Status: Chronic (3) Paroxysmal A-fib: Status: Chronic (4) GI (gastrointestinal bleed): Status: Resolved Asessment and Plan: No current GI bleeding Discharge Plan Disposition Patient Disposition: [facility]) Condition: Fair Discharge Details Reason For Visit: Blood loss anemia; Cirrhosis, MINI Admit Date/Time: 10/25/22 17:33 Admit Provider: Ollie Magana Attending Provider: Ollie Magana Primary Care Provider: Dylon Rey Hospital Course Hospital Course: This 67 years old female?patient with a past medical history of atrial fibrillation, asthma, cirrhosis with recent GI bleeding and pneumonia, ?presented to the [facility] ED on 10/26/2022 for shortness of breath and chest pain. She denied nausea, vomiting, hematochezia, melena, hematuria or other bleeding sites.? She complained of new back pain, she described as constant achy pain that started a few days prior to admission.? In the ED her H&H was 4.8 & 14.6, platelets 127, Na 129, K 2.6, BUN 40, Creatinine 3.4, BNP 5914. She was admitted to the medical floor and received five units of packed red blood cells, FFP and her potassium was repleted.? Her BUN and Creatinine remain elevated, however this is her baseline.? She is being discharged to the [facility], stable for physical rehab and follow up with hepatology for cirrhosis. Discussed with Dr Magana. Home Meds and New Rx's Prescriptions: Continued albuterol sulfate 90 mcg/actuation HFA aerosol inhaler 2 puff INHALATION Q4H PRN sucralfate 1 gram tablet 1 g PO BID Qty: 60 0RF spironolactone 25 mg tablet 25 mg PO DAILY Patient Comments: TAKE ONE TABLET BY MOUTH EVERY MORNING Rx Instructions: ordered to stop taking this metoprolol tartrate 25 mg tablet 12.5 mg PO BID Patient Comments: TAKE ONE-HALF TABLET BY MOUTH TWICE A DAY Rx Instructions: ordered to stop taqking this Xifaxan 550 mg tablet 550 mg PO BID Patient Comments: TAKE ONE TABLET BY MOUTH TWICE A DAY potassium chloride 20 mEq tablet extended release 20 meq PO DAILY Patient Comments: TAKE ONE TABLET BY MOUTH THREE TIMES A DAY omeprazole 20 mg capsule,delayed release(DR/EC) 20 mg PO PRN PRN nadolol 20 mg Tablet 20 mg PO DAILY sodium bicarbonate 650 mg Tablet 650 mg PO BID Rx Instructions: 2 tabs bid cholecalciferol (vitamin D3) 50 mcg (2,000 unit) Tablet 50 mcg PO DAILY Dulera 100-5 mcg/actuation HFA aerosol inhaler 2 puff INHALATION BID Patient Comments: INHALE TWO PUFFS BY MOUTH TWICE A DAY thiamine mononitrate (vit B1) 100 mg Tablet 100 mg PO DAILY Discharge Instructions Additional Instructions: Reschedule your appointment at [facility] with Hepatology. Referrals: Dylon Rey MD [Primary Care Provider] - (1-2 weeks ) Activity:: Activity as Tolerated Equipment/Supplies:: No Equipment Needed Diet:: As Tolerated Discharge Orders Discharge Orders: Discharge Order (Routine); Ordered 10/28/22 Ordered By: Leslie Purdy DS: Summary Time Spent with Patient providing and/or coordinating discharge services: Greater than 30 minutes Status at Discharge Functional status at discharge: uses cane/walker Overall status at discharge: patient is back to baseline Mental Status: mental status grossly normal Speech and Movement: speech and movement normal Mood: congruent mood Affect: normal affect Exam Narrative Exam Narrative: Gen: Looks chronically ill but nontoxic. HEENT atraumatic, sclera clear Neck supple Lungs clear anteriorly. Nonlabored breathing. Heart RRR Abdomen non-tense ascites, non-tender Extremities 2-3+ pitting edema. No calf tenderness. Neuro Ox3, lucid, moves all 4s, no asterixis Psych Mental Status: mental status grossly normal Speech and Movement: speech and movement normal Mood: congruent mood Affect: normal affect DS: Data Vitals/I&O Vitals and I&O: Vital Signs Temperature 36.4 C L 10/28/22 07:20 Temperature Source Tympanic 10/28/22 07:20 Pulse 61 10/28/22 07:20 Pulse Rhythm Regular 10/28/22 10:20 Respiratory Rate 16 10/28/22 07:20 Respiratory Effort Normal, Non-Labored 10/28/22 10:20 Respiratory Depth Normal 10/28/22 10:20 Respiratory Pattern Normal 10/28/22 10:20 Blood Pressure 106/60 10/28/22 07:20 Pulse Oximetry 96 10/28/22 07:20 Oxygen Delivery Method Room Air 10/28/22 07:20 Oxygen Flow Rate 0 10/28/22 07:20 Pain Level 0 10/28/22 07:20 Comment RN Notified 10/27/22 23:30 Intake & Output 10/27/22 10/28/22 10/28/22 23:59 11:59 23:59 Weight 101.6 kg Other: Urine Color Pale Yellow Urine Appearance Clear Clear Urine Odor Normal Stool Size Small Moderate Stool Characteristics Liquid Liquid Voiding Methods Toilet Toilet Data Completed and Pending Labs on day of discharge: Labs from last 24 hours 10/28/22 10/28/22 10/27/22 06:14 06:14 19:00 WBC 7.48 RBC 2.68 L Hgb 7.8 L Hct 25.3 L MCV 94 MCH 29.1 MCHC 30.8 L RDW 20.7 H Plt Count 143 MPV 11.0 Immature Gran % 0.5 Neutrophils % 71.3 Lymphocytes % 13.6 Monocytes % 11.0 Eosinophils % 3.1 Basophils % 0.5 Nucleated RBC % 0.0 Absolute Neutrophils 5.33 Absolute Lymphocytes 1.02 L Absolute Monocytes 0.82 H Absolute Eosinophils 0.23 Absolute Basophils 0.04 RBC Morphology See Below Hypochromasia 1+ Anisocytosis 2+ Sodium 135 L Potassium 3.6 Chloride 100 Carbon Dioxide 26.2 Anion Gap 8.8 BUN 55 H Creatinine 3.6 H* Est GFR (CKD-EPI 2020) 13.36 Glucose 122 H Calcium 8.8 Magnesium 1.5 L COVID-19 Source Nasal/Nares SARS-CoV-2 (PCR) Negative PFSH All Active Problems (Updated 10/28/22 @ 14:29 by Leslie Purdy NP) Advance directive in chart (Acute) Paroxysmal A-fib (Chronic) Esophageal varices (Acute) Portal hypertensive gastropathy (Acute) Portal hypertension (Acute) Pharyngitis (Acute) Alcoholic cirrhosis (Chronic) Hepatorenal syndrome (Acute) Cirrhosis (Chronic) Pleural effusion (Acute) Anasarca (Acute) Hypokalemia (Acute) MINI (acute kidney injury) (Chronic) Severe anemia (Acute) Medical History Alcohol abuse Asthma GERD (gastroesophageal reflux disease) Hypertension Nausea and vomiting Obesity (BMI 30-39.9) Seasonal allergies Surgical History Hx of colonoscopy Hx of esophagogastroduodenoscopy S/P appendectomy Family History Mother Diabetes Breast cancer Other Adopted Social History Smoking/Tobacco Use Status: Never Smoking risk assessment performed?: Yes Alcohol Intake: current Alcohol Intake frequency: 0-2 drinks per day Alcohol type: wine Counseling given: Yes Counseling provided: provider counseling and reduce to 2 or less/day Drug use: Never Substance use type: does not use Do you feel safe at home: Yes Do you feel safe in your relationship?: Yes Time Spent with Patient Time Spent with Patient: 45-69 minutes Time was spent: preparing to see the patient(eg.review tests), obtaining and/or reviewing separately otained hiistory, ordering medications,tests, procedures, referring, communicating with other health eye care professional, indepentently interpreting results, counseling the patient and care coordination
--- NOTE | 2022-10-28 14:26 | CMDISCH_ITS ---
- If Service Date Differs Date of service: 10/28/22 Time of Service: 14:26 LACE Index Scoring Tool - Questions: Length of Stay (in days): 3 Acuity (Admit via E.D.?): No E.D. Visits: 3 - Answers: Total Score: 6 Risk of Readmission: Low Risk Care Management Discharge Reason for Hospitalization: Cirrhosis, MINI, Paroxymal Afib, GI Bleed Discharge Plan: Margot is discharged to [facility] for STR prior to discharging home. She transported via Facility w/c van. She will follow up with facility providers and discharge plan of care as prescribed. Patient/Family Education Needs: Review discharge instructions, limitations, medications and plan to follow up with community providers. Discuss ask me three. Services Needed at Discharge: Group Home Facility ([facility] for STR, coordinated by [facility])
--- NOTE | 2022-11-08 18:37 | PT.INDS ---
Date of service: 11/08/22 PT Notes Visit Reasons: Blood loss anemia; Cirrhosis, MINI Physical Therapy Inpatient Discharge Summary Date: 11/08/22 Dates of service: 10/27/2022 through 10/28/2022 This is a clinical summary of care provided for the duration of dates listed above. No charge was made in the completion of this documentation. Referring Doctor: Ollie Magana MD PT Orders: PT CONSULT: Eval and treat Precautions: Fall. Standard. Patient Profile/Admitting Diagnosis:Theresa is 67 yo female that was transferred to [facility] on 10/25/22 from [facility] for ongoing medical management, PT, and eventual transfer to SNF. She reports increasing fluid retention and swelling that has limited her ability to perform ADLs over the last month. History of cirrhosis, GI bleed, pneumonia, and acute kidney injury. Patient reports independent at baseline, but has hard time now getting up from chair and ascending stairs. PMHX: See EMR Social History/Home Situation: Lives alone in 2 level home, primary bedroom upstairs, 6 BASIL, no AD use, totally independent Equipment Owned/DME: None Subjective:? NT. See most recent [employer] notes. Objective:? General Observation: NT. See most recent [employer] notes. Mental Status: NT. See most recent [employer] notes. Pain: NT. See most recent [employer] notes. ROM: Right Upper Extremity: Shoulder Flexion WFL. Shoulder abduction WFL. Elbow flexion WFL. Wrist flexion WFL. Opening and closing of hand WFL. Left Upper Extremity: Shoulder Flexion WFL. Shoulder abduction WFL. Elbow flexion WFL. Wrist flexion WFL. Opening and closing of hand WFL. Right Lower Extremity: Hip flexion mild impairment. Hip abduction WFL. Knee flexion mild impairment. Ankle dorsiflexion WFL. Ankle plantarflexion WFL. Left Lower Extremity: Hip flexion mild impairment. Hip abduction WFL. Knee flexion mild impairment. Ankle dorsiflexion WFL. Ankle plantarflexion WFL. Strength: Right Upper Extremity: Shoulder flexors 4/5. Shoulder abductors 4/5. Elbow flexors 5/5. Elbow extensors 4/5. Railroad Signal Operator strong. Left Upper Extremity: Shoulder flexors 4/5. Shoulder abductors 4/5. Elbow flexors 5/5. Elbow extensors 4/5. Railroad Signal Operator strong. Right Lower Extremity: Hip flexors 5/5. Knee flexors 5/5. Knee extensors 5/5. Ankle dorsiflexors 5/5. Ankle plantarflexors 4/5. Left Lower Extremity: Hip flexors 5/5. Knee flexors 5/5. Knee extensors 5/5. Ankle dorsiflexors 5/5. Ankle plantarflexors 4/5. Sensation:?Intact as to pain and pressure on bilateral lower extremities. Reports feet feel weird from swelling. ED MOBILITY/TRANSFERS? Sit-stand: Min A ? Stand-sit: SBA ? GAIT? Assistive Device: FWW? Weight bearing: Full Assist: SBA? Distance: 100'? Deviation: Slow pacing, several standing rests due to SOB Balance:? Static Sitting: Normal Dynamic Sitting: Normal Static Standing: Normal Dynamic Standing: Good Assessment: Patient presents with clinical signs and symptoms consistent with current/admitting diagnoses that have resulted to mobility limitations, gait instability, generalized weakness, and impairment of motor control as demonstrated by the following impairment level findings: 1. Decreased strength to upper extremity major muscle groups 2. Impaired activity tolerance 3. Limitation of joint range of motion in lower extremity due to swelling Impairments are contributing to the following functional limitations: 1. Increased dependence with bed mobility skills 2. Increased dependence with transfers 3. Inability to safely ambulate without assistive device and physical assistance 4. Increase completion time for mobility ADL performance 5. Increased fall risk 6. Inability to negotiate steps alone safely Goals: Goals x1 week 1. Supine-Sit: independent NOT MET 2. Sit-Supine: independent NOT MET 3. Sit-Stand: independent NOT MET 4. Stand-Sit: independent NOT MET 5. Bed-Chair: independent NOT MET 6. Chair-Bed: independent NOT MET 7. Independent gait on level surface with use of least restrictive device for at least 300 feet without report of pain nor dyspnea NOT MET 8. Good static and dynamic standing balance/tolerance NOT MET 9. Independent with home exercise program NOT MET 10. Independent stair negotiation while holding onto bilateral rails for at least 10 steps without report of pain nor dyspnea NOT MET Discharge Plan DISCHARGE RECOMMENDATIONS: SNF for continued rehabilitation TREATMENT CODE/TIME: Thank you for the opportunity to participate in the care of this patient. Macy Valencia PT, DPT, CLT [facility] [place], [place]
== END 2022-10-28 14:39 | disposition skilled nursing facility (03) | DRG 433 ==
PROVIDERS: General Practice; Nurse Practitioner Family; Admitting Provider Family Medicine; PCP Family Medicine; Visit Provider Family Medicine
DX: K70.31 Alcoholic cirrhosis of liver with ascites (principal); I85.10 Secondary esophageal varices without bleeding; N17.9 Acute kidney failure, unspecified; K76.6 Portal hypertension; I48.0 Paroxysmal atrial fibrillation; J45.909 Unspecified asthma, uncomplicated; E66.9 Obesity, unspecified; Z68.39 Body mass index [BMI] 39.0-39.9, adult; E87.6 Hypokalemia; F10.10 Alcohol abuse, uncomplicated; I10 Essential (primary) hypertension; D50.0 Iron deficiency anemia secondary to blood loss (chronic)
CPT/HCPCS: 36415; 80048; 80053; 85027; 87635; 94640; 97116; 97161; 97530; 82247; 83735; 84460; 85025; 85610; 94664; 99222; 99232; 99239; J3480

== ENCOUNTER 2022-11-07 15:20 | Outpatient (CLI) | payer BC, SELFPAY ==
[2022-11-07 14:59] LABS: Abs Immature Grans 0.04 10^3/uL (0.0-0.06); Absolute Basophil Count 0.05 10^3/uL (0.0-0.2); Absolute Eosinophil Count 0.33 10^3/uL (0.0-0.7); Absolute Lymphocyte Count 0.91 10^3/uL (1.2-3.4); Absolute Monocyte Count 0.98 10^3/uL (0.1-0.8); Absolute Neutrophil Count 4.93 10^3/uL (1.2-6.7); Basophils % 0.7; Eosinophils % 4.6; HCT 23.4 % (36.0-46.0); HGB 7.7 g/dL (11.2-15.7); Immature Grans % 0.6; Lymphocytes % 12.6; MCH 31.3 pg (27.0-33.0); MCHC 32.9 % (32.0-36.0); MCV 95 fL (80-95); MPV 10.9 fL (8.0-11.0); Monocytes % 13.5; Platelet Count 138 10^3/uL (130-400); RBC 2.46 10^6/uL (3.93-5.22); RDW 20.2 % (11.7-14.6); RDW-SD 69.7 fL; WBC 7.24 10^3/uL (4.4-10.8)
[2022-11-07 15:08] LABS: INR 1.4 (0.9-1.1); Prothrombin Time 14.6 sec (9.3-11.0)
[2022-11-07 15:12] LABS: Anisocytosis 2+; Diff Comment RBC Morph Reviewed
[2022-11-07 16:22] LABS: ALT 9 U/L (14-59); AST 25 U/L (15-37); Albumin 3.3 g/dL (3.4-5.0); Alkaline Phosphatase 64 U/L (46-116); Anion Gap 13.5 mmol/L (3-11); BUN 73 mg/dL (7-18); Bilirubin, Total 2.6 mg/dL (0.2-1.0); CO2 22.5 mmol/L (21.0-32.0); Calcium 8.9 mg/dL (8.5-10.1); Chloride 100 mmol/L (98-107); Estimated GFR 10.22 (mL/min/1.73m2); Glucose 119 mg/dL (74-106); Potassium 4.4 mmol/L (3.5-5.1); Sodium 136 mmol/L (136-145); Total Protein 6.2 g/dL (6.4-8.2)
[2022-11-07 16:27] LABS: CREATININE 4.5 mg/dL (0.55-1.02)
== END 2022-11-07 15:21 | disposition home or self-care (01) ==
LOC: LBO 15:21
PROVIDERS: PCP Family Medicine; Visit Provider Family Medicine
DX: K70.30 Alcoholic cirrhosis of liver without ascites (principal); D50.0 Iron deficiency anemia secondary to blood loss (chronic); I10 Essential (primary) hypertension
CPT/HCPCS: 36415; 80053; 85025; 85610